=== PATIENT | female | born 1950 | race Caucasian/White ===

== ENCOUNTER → 2018-12-05 16:18 | Outpatient (CLI) | payer MEDICARE, SELFPAY ==
--- NOTE | 2018-12-05 16:30 | MRI_ITS ---
STUDY: MRI RIGHT HIP REASON FOR EXAM: Right hip pain since fallJuly 2017. TECHNIQUE: Standardized fat and water weighted pulse sequences were obtained in all 3 orthogonal planes. COMPARISON: None. FINDINGS: Although there is image degradation secondary to patient motion on the inversion recovery coronal sequence, there is still significant diagnostically useful information available from this examination. There is a small right hip joint effusion (proton-density sagittal images 13, 14). Normal acetabulum. Normal labrum. There is very mild bone edema in the anterior aspect of the right femoral head (T2 axial image 13). Normal femoral neck and intratrochanteric region. Normal gluteus minimus, medius and iliopsoas tendons and distal insertions. There is no trochanteric, iliopsoas or iliopectineal bursitis. Normal superior and inferior pubic rami. Normal pubic symphysis. Normal ischial tuberosity. Normal origin of the hamstring tendons. Normal visualized iliac wing, sacroiliac joint, and sacral ala. Normal visualized soft tissue structures of the pelvis. MRI/Lower Ext Joint Only (Routine) IMPRESSION: Very mild bone edema in the anterior aspect of the right femoral head. Small right hip joint effusion. Electronically Signed: Landon Carlos MD at 14:11 EST Tel , Service support ,
== END ==
PROVIDERS: Family Provider Internal Medicine Infectious Disease; PCP Internal Medicine Infectious Disease; Referring Provider Specialist; Visit Provider Specialist
DX: M25.551 Pain in right hip (principal)
CPT/HCPCS: 73721

== ENCOUNTER → 2018-12-14 10:50 | Outpatient (CLI) | payer MEDICARE, SELFPAY ==
[2018-12-14 12:50] LABS: Vitamin B12 444 pg/mL (211-911)
[2018-12-14 12:59] LABS: Thyroid Stim Hormone (TSH) 1.75 uIU/mL (0.358-3.74)
--- OUTSIDE RECORDS SUMMARY | 2019-02-18 01:37 | XMS RPT_ITS ---
:1950 Author Organization OHIP Support Name Relationship Address Phone R Unavailable Unavailable Unavailable TODD MARIE Unavailable [address] + [place] [address] R Unavailable Unavailable Unavailable TODD MARIE Unavailable [address] + [place] [address] R Unavailable Unavailable Unavailable TODD MARIE Unavailable [address] + [place] [address] NOT GIVEN Unavailable Unavailable Unavailable TODD MARIE Unavailable [address] + [place] [address] TODD MARIE Unavailable [address] [place] [address] NOT GIVEN Unavailable Unavailable Unavailable NOT GIVEN Unavailable Unavailable Unavailable NOT GIVEN Unavailable Unavailable Unavailable NOT GIVEN Unavailable Unavailable Unavailable TODD MARIE Unavailable [address] + [place] [address] TODD MARIE Unavailable [address] [place] [address] NOT GIVEN Unavailable Unavailable Unavailable TODD MARIE Unavailable [address] + [place] [address] TODD MARIE Unavailable [address] [place] [address] NOT GIVEN Unavailable Unavailable Unavailable TODD MARIE Unavailable [address] + [place] [address] TODD MARIE Unavailable [address] [place] [address] NOT GIVEN Unavailable Unavailable Unavailable TODD MARIE Unavailable [address] + [place] [address] TODD MARIE Unavailable [address] [place] [address] Care Team Providers Name Role Phone KAVITA IVEY MD Admitting Unavailable KAVITA IVEY MD Attending Unavailable KAVITA IVEY MD Primary Care Unavailable KAVITA IVEY MD Consulting Unavailable PROVIDER, UNKNOWN Consulting Unavailable PROVIDER, UNKNOWN Consulting Unavailable PROVIDER, UNKNOWN Consulting Unavailable ALEJANDRO SANDY T Primary Care Unavailable ALEJANDRO SANDY Attending Unavailable ALEJANDRO SANDY Admitting Unavailable KAVITA IVEY MD Consulting Unavailable THERON, ALEJANDRO Dickerson Primary Care Unavailable ALEJANDRO SANDY Attending Unavailable THERON, ALEJANDRO T Admitting Unavailable PROVIDER, UNKNOWN Consulting Unavailable PROVIDER, UNKNOWN Consulting Unavailable PROVIDER, UNKNOWN Consulting Unavailable THERON, ALEJANDRO T Admitting Unavailable ALEJANDRO SANDY T Attending Unavailable ALEJANDRO SANDY T Primary Care Unavailable KAVITA IVEY MD Consulting Unavailable KAVITA IVEY MD Referring Unavailable PROVIDER, UNKNOWN Consulting Unavailable PROVIDER, UNKNOWN Consulting Unavailable PROVIDER, UNKNOWN Consulting Unavailable KAVITA IVEY MD Referring Unavailable KAVITA IVEY MD Consulting Unavailable KAVITA IVEY MD Admitting Unavailable KAVITA IVEY MD Attending Unavailable KAVITA IVEY MD Primary Care Unavailable PROVIDER, UNKNOWN Consulting Unavailable PROVIDER, UNKNOWN Consulting Unavailable PROVIDER, UNKNOWN Consulting Unavailable KAVITA IVEY MD Referring Unavailable KAVITA IVEY MD Admitting Unavailable KAVITA IVEY MD Attending Unavailable KAVITA IVEY MD Primary Care Unavailable KAVITA IVEY MD Consulting Unavailable PROVIDER, UNKNOWN Consulting Unavailable PROVIDER, UNKNOWN Consulting Unavailable PROVIDER, UNKNOWN Consulting Unavailable FABIOLA, KANIKA PA-C Admitting Unavailable FABIOLA, KANIKA PA-C Attending Unavailable FABIOLA, KANIKA PA-C Primary Care Unavailable KAVITA IVEY MD Consulting Unavailable PROVIDER, UNKNOWN Consulting Unavailable PROVIDER, UNKNOWN Consulting Unavailable PROVIDER, UNKNOWN Consulting Unavailable FABIOLA, KANIKA PA-C Admitting Unavailable FABIOLA, KANIKA PA-C Attending Unavailable FABIOLA, KANIKA PA-C Primary Care Unavailable KAVITA IVEY MD Consulting Unavailable PROVIDER, UNKNOWN Consulting Unavailable PROVIDER, UNKNOWN Consulting Unavailable PROVIDER, UNKNOWN Consulting Unavailable Noah Kingsley Attending Unavailable Noah Kingsley Referring Unavailable OMRAN, YASSYAMILEX Primary Care Unavailable Felton, Kaleb S. Attending Unavailable Felton, Kaleb S. Referring Unavailable OMRAN, YASSER Primary Care Unavailable Felton, Kaleb S. Attending Unavailable Felton, Kaleb S. Referring Unavailable OMRAN, YASSER Primary Care Unavailable PROBLEMS PROBLEMS DATE TYPE CONDITION / CODE ATTENDING STATUS SOURCE 12/14/2018 Unknown R41.3 - Other Felton, Active [place] amnesia / Kaleb S. Community R41.3(ICD-10) Hospital Repository 09/12/2018 Principle Dysphasia / KANIKA STAPLETON Active [facility] Diagnosis R4702(ICD-10) PA-C [facility] Hospital Repository 09/12/2018 Principle Encounter for ALEJANDRO SANDY Active [facility] Diagnosis screening for T [facility] malignant neoplasm [facility] of colon / Repository Z1211(ICD-10) 08/16/2018 Principle Essential OMRAN, YASSER Active [facility] Diagnosis (primary) [facility] hypertension / Hospital I10(ICD-10) Repository 08/01/2018 Admitting Pneumonia, OMRAN, YASSER Active [facility] Diagnosis unspecified [facility] organism / Hospital J189(ICD-10) Repository 08/01/2018 Principle Pneumonia, OMRAN, YASSER Active [facility] Diagnosis unspecified [facility] organism / Hospital J189(ICD-10) Repository 08/01/2018 Secondary Chronic OMRAN, YASSER Active [facility] [facility] Diagnosis obstructive [facility] with (acute) Repository exacerbation / J441(ICD-10) 02/17/2018 Admitting Chronic OMRAN, YASSER Active [facility] [facility] Diagnosis obstructive [facility] unspecified / Repository J449(ICD-10) 02/17/2018 Principle Chronic OMRAN, YASSER Active [facility] [facility] Diagnosis obstructive [facility] with (acute) Repository exacerbation / J441(ICD-10) 02/17/2018 Secondary Pneumonia, OMRAN, YASSER Active [facility] Diagnosis unspecified [facility] organism / Hospital J189(ICD-10) Repository PROCEDURES PROCEDURES No Procedure Records FoundRESULTS RESULTS BRAIN WITHOUT Observed: 12/21/2018 Status: F Source: [place] CONTRAST 11:08 AM [facility] REPOSITORY [facility] Imaging Services [address] [place] [address] Brain without Contrast MR#: [id number] Acct: [id number] Name: ASHLEY MARIE Rep #: [id number] : 1950 F 68 From: Flynn Pham PCP: Kavita Ivey Status: REG CLI Study: Brain without Contrast Date of Exam: 12/21/18 Exam# [id number] Ordering Dr: Kaleb Ya MD STUDY: MRI BRAIN WITHOUT CONTRAST REASON FOR EXAM: Female, 68 years old. memory loss, RT SIDED WEAKNESS. TECHNIQUE: Standardized multiplanar fat and water weighted pulse sequences were obtained. COMPARISON: None. FINDINGS: There is mild cerebral atrophy with widening of the extra- axial spaces and ventricular dilatation. There are multiple white matter hyperintensities, distributed throughout the deep white matter tracts of the cerebral hemispheres, consistent with moderate chronic white matter ischemic changes. There are prominent perivascular spaces (PVS) involving the basal ganglia. Normal thalami. There is no extra-axial fluid accumulation. Normal flow voids within the major intracranial circulation suggesting patency by spin echo criteria. Normal sella turcica, pituitary gland, infundibular stalk, optic chiasm and hypothalamus. Normal tectal plate and pineal gland. Normal midbrain, steph and medulla. Normal cerebellum. Normal basal cisterns. Normal bilateral temporal bones. Normal bilateral internal auditory canals. MRI/Brain without Contrast IMPRESSION: No acute intracranial abnormality. 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 [place], [place], [address] THYROID STIM HORMONE Collected: 12/14/2018 Status: F Source: [place] (TSH) 10:57 AM [facility] REPOSITORY TYPE CODE TESTS RESULT OUT OF RANGE REFERENCE UNITS LAB L501.9520 0.358-3.74 uIU/mL Normal TSH 1.75 Performed By: #### L501.9520 #### [facility] [address] [place], [address] LOWER EXT JOINT ONLY Observed: 12/05/2018 Status: F Source: [place] (ROUTINE) 4:32 PM [facility] REPOSITORY [facility] Imaging Services [address] [place] [address] Lower Ext Joint Only (Routine) MR#: [id number] Acct: [id number] Name: ASHLEY MARIE Rep #: [id number] : 1950 F 68 From: Landon Carlos MD PCP: Kavita Ivey Status: REG CLI Study: Lower Ext Joint Only (Routine) Date of Exam: 12/05/18 Exam# [id number] Ordering Dr: Noah Kingsley MD STUDY: MRI RIGHT HIP REASON FOR EXAM: Right hip pain since May. FallJuly 2017. TECHNIQUE: Standardized fat and water weighted pulse sequences were obtained in all 3 orthogonal planes. COMPARISON: None. FINDINGS: Although there is image degradation secondary to patient motion on the inversion recovery coronal sequence, there is still significant diagnostically useful information available from this examination. There is a small right hip joint effusion (proton-density sagittal images 13, 14). Normal acetabulum. Normal labrum. There is very mild bone edema in the anterior aspect of the right femoral head (T2 axial image 13). Normal femoral neck and intratrochanteric region. Normal gluteus minimus, medius and iliopsoas tendons and distal insertions. There is no trochanteric, iliopsoas or iliopectineal bursitis. Normal superior and inferior pubic rami. Normal pubic symphysis. Normal ischial tuberosity. Normal origin of the hamstring tendons. Normal visualized iliac wing, sacroiliac joint, and sacral ala. Normal visualized soft tissue structures of the pelvis. MRI/Lower Ext Joint Only (Routine) IMPRESSION: Very mild bone edema in the anterior aspect of the right femoral head. Small right hip joint effusion. 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 Type: Out Account: [id number] Location: [facility] Ordering: [facility] Exam Date: 09/15/2018/14:02 Family Phys: KAVITA IVEY Charge Code: [id number] Physician: Curry Order #: [id number] DLP Dose#: PROCEDURE: CT BRAIN WITH AND WITHOUT COMPARISON: None. INDICATIONS: Headaches and dysphasia TECHNIQUE: After obtaining the patient's consent, CT images were obtained without and with non- ionic intravenous contrast material. All CT scans at this facility use dose modulation, iterative reconstruction, and/or weight based dosing when appropriate to reduce radiation dose to as low as reasonably achievable. IV CONTRAST: Omnipaque 350,50ml TOTAL DOSE: 115.00 CTDIvol(mGy) FINDINGS: CEREBRUM: No edema, hemorrhage, mass, acute infarction, or inappropriate atrophy. CEREBELLUM: No edema, hemorrhage, mass, acute infarction, or inappropriate atrophy. BRAINSTEM: No edema, hemorrhage, mass, acute infarction, or inappropriate atrophy. CSF SPACES: There is mild central atrophy. There is mild bilateral microangiopathic change. No abnormal foci of contrast enhancement. The dural venous sinuses are patent. SKULL: No mass or other significant visible lesion. SINUSES: Limited views demonstrate no significant mucosal thickening or fluid. ORBITS: Limited views are unremarkable. OTHER: No abnormal meningeal or parenchymal enhancement. CONCLUSION: 1. Atrophy and microangiopathic disease with no visible acute abnormality. Dictated by: Alejandro eMlendez MD on 09/15/2018 at 14:44 Continued Report - Page 2 of 2 Patient: ASHLEY MARIE Phone#: : 1950 Age: 67 Gender: F Pt. Type: Out Account: [id number] Location: 052 Ordering: [facility] Exam Date: 09/15/2018/14:02 Family Phys: KAVITA IVEY Charge Code: [id number] Physician: Curry Order #: [id number] DLP Dose#: Approved by: Alejandro Melendez MD on 09/15/2018 at 14:44 HIP COMPLETE RT MIN 2 Observed: 09/15/2018 Status: F Source: [place] VIEWS W/PELVIS 1:58 PM [facility] REPOSITORY [place] [address] Patient: ASHLEY MARIE Phone#: : 1950 Age: 67 Gender: F Pt. Type: Out Account: [id number] Location: 052 Ordering: [facility] Exam Date: 09/15/2018/13:24 Family Phys: KAVITA IVEY Charge Code: [id number] Physician: Curry Order #: [id number] DLP Dose#: PROCEDURE: X-RAY HIP RT COMPLETE MIN 2 VIEWS W/PELVIS COMPARISON: None. INDICATIONS: Right Hip Pain FINDINGS: BONES: There is mild degenerative change about both hips right greater than left. No visible fracture or suspicious bone lesion. There is degenerative change in the lower lumbar spine. SOFT TISSUES: Negative. No visible soft tissue swelling. EFFUSION: None visible. OTHER: Negative. CONCLUSION: 1. Mild bilateral hip joint degenerative change, otherwise unremarkable. Dictated by: Alejandro Melendez MD on 09/15/2018 at 15:06 Approved by: Alejandro Melendez MD on 09/15/2018 at 15:06 BUN Collected: 09/15/2018 Status: F Source: [place] 1:15 PM [facility] REPOSITORY TYPE CODE TESTS RESULT OUT OF RANGE REFERENCE UNITS LAB BUN(LOINC) 6 - 20 mg/dl BUN 15 Performed By: #### [id number] #### [facility],[address] [place] [address] CREATININE Collected: 09/15/2018 Status: F Source: [place] 1:15 PM [facility] REPOSITORY TYPE CODE TESTS RESULT OUT OF REFERENCE UNITS RANGE LAB CREATININE 0.6 - 1.2 mg/dl (LOINC) CREATININE 0.8 Performed By: #### [id number] #### [facility],[address] [place] [address] DISCHARGE SUMMARY Observed: 08/15/2018 Status: F Source: [place] 3:08 PM [facility] REPOSITORY [facility] DISCHARGE SUMMARY NAME ACCOUNT SEX AGE ADMIT DISCHARGE PT MED. RECORD# NUMBER DATE DATE TYPE ASHLEY MARIE [id number] F 67 08/01/18 08/07/18 1 [id number] ROOM: [facility] DATE OF : 1950 DICTATING PHYSICIAN: Kavita Ivey FINAL DIAGNOSES: 1. Chronic obstructive pulmonary disease exacerbation. 2. Acute community acquired pneumonia. 3. Yeast in sputum. 4. Hyperglycemia secondary to steroids. 5. Hypokalemia. DIAGNOSTIC DATA: WBC 12.3 on discharge, hemoglobin 12.9, hematocrit 38.6, hemoglobin A1c 6%, sodium 139, potassium 3.4, BUN 11, creatinine 0.7. HOSPITAL COURSE: For full history and physical, please see chart. For brief summary, see below. This is a 67-year-old female with known history of stage III severe COPD. She has oxygen at home. She has not been wearing it. She also has DuoNeb treatments at home. She has a history of hypercholesterolemia, hypertension and depression with anxiety. She had increasing shortness of breath. She does not leave the house much. She had a to go to. She was around a lot of people. She went on prednisone at home for 4 days as she started to have shortness of breath and cough. She then awoke with pain on the right side that was worse with cough. She felt like she could not catch her breath. She came to the emergency room. She had mild hypokalemia, leukocytosis. She was tachycardic. Oxygen saturation was 83% on room air. CT of the chest ruled out pulmonary embolism with right middle and upper lobe infiltrate. She was admitted for further management. She was placed on broad spectrum IV antibiotics with Rocephin and Zithromax, oxygen support, DuoNeb treatment and prednisone daily. She had hyperglycemia secondary to steroids. Glucoscans were checked with sliding insulin scale. She slowly improved. Sputum did come back with yeast. She was placed on Diflucan. Today, on the date of discharge she is feeling much better. Blood pressure 157/95, heart rate 82, respirations 16, temperature 97.5, oxygen saturation 92% on 2 liters. Lungs have normal respiratory effort. Equal lung expansion. Diminished breath sounds but clear. Heart has regular rate and rhythm. DISPOSITION: She was discharged home in stable condition. MEDICATIONS ON DISCHARGE: (1) Diflucan 100 mg daily for 7 days. (2) Ceftin 250 Page 1 of 2 ASHLEY MARIE D Discharge Summary mg b.i.d. x5 days. (3) Prednisone 20 mg daily for 5 days. (4) Probiotic 1 capsule daily. She was told to stay on this. (5) Hold Lovastatin 20 mg and restart in 2 weeks. (6) Saline nasal spray 2 sprays each nostril 4 times day. (7) Delsym 10 mL q12h cough. (8) Ibuprofen 200 mg daily as at home. (9) Alprazolam 0.5 mg b.i.d. p.r.n. (10) Senokot S 1 tablet daily. (11) Omeprazole 40 mg daily. (12) Vitamin B complex one tablet daily. (13) Amlodipine 5 mg daily. (14) Citalopram 20 mg daily. DISCHARGE INSTRUCTIONS/PLAN: Increase activity as tolerated. Continue Acapella and incentive spirometry. No added sugar diet. Follow up with Kanika Stapleton in the office on August 08 at 1 p.m. Discharge instructions were discussed with her including wearing her oxygen at home. New medications included antibiotics, Diflucan, prednisone, and probiotics. Statin was held for 2 weeks. All questions were answered. She verbalized understanding of the plan. I examined the patient myself, the above E&M is accurate reflection of work done by me Niharika Ivey M.D. Dictated by eduarda Alcazar for Kavita Ivey M.D. 08/07/18 10:21 JOB #: [id number] Transcribed By: yue 08/08/18 10:19 Electronically signed by: GIOVANNI IVEY MD 08/15/18 15:08 Page 2 of 2 ASHLEY MARIE Discharge Summary PROGRESS NOTE Observed: 08/15/2018 Status: F Source: [place] 3:04 PM [facility] PROGRESS NOTE NAME ACCOUNT SEX AGE ADMIT DISCHARGE PT MED. RECORD# NUMBER DATE DATE TYPE ASHLEY MARIE [id number] F 67 08/01/18 1 [id number] ROOM: [facility] DATE OF : 1950 DICTATING PHYSICIAN: Kavita Ivey DATE OF SERVICE: August 06, 2018 SUBJECTIVE: Mrs. Marie has been doing fairly well today, better than previous. The cough did improve some. She did have a little bit of funny sensation on the mouth, and on examination there is a small area of whitish on the tip of the tongue and inside the lip. OBJECTIVE: Vital signs otherwise revealed the patient to be afebrile. She is on 2 liters of oxygen, saturation is 92 to 94%, blood pressure 160/97. HEENT: Pupils are round, equal, and reactive. Tongue is midline. As I mentioned, small whitish spot very tiny on the tip of the tongue and one inside the lip to the left. Neck is supple. Lungs are improving at this point with minimal wheezes. The heart was regular. Abdomen is soft. Extremities revealed no edema. DIAGNOSTIC DATA: White count is 11.8 today, hemoglobin 12.7. Chemistries revealed a sodium of 140, potassium 3.7, bicarbonate 31.8, BUN 10, creatinine 0.7. ASSESSMENT: 1. Acute chronic obstructive pulmonary disease exacerbation improving. 2. Right lower lobe pneumonitis - improving. 3. Possible yeast bronchitis and even thrush - currently on treatment. We will continue Diflucan. 4. Back pain - has been controlled now with current regimen. PLAN: Continue current treatment. Encouraged the patient mobility. Reassess the situation in the morning. The patient's blood pressure has went up slightly and the IV fluid has been stopped at this point. Dictated By: Kavita Ivey MD 08/06/18 17:36 JOB #: [id number] Transcribed By: neville 08/06/18 17:50 Electronically signed by: GIOVANNI IVEY MD 08/15/18 15:04 Page 1 of 2 ASHLEY MARIE Progress Note Page 2 of 2 ASHLEY Progress Note PROGRESS NOTE Observed: 08/15/2018 Status: F Source: [place] 3:04 PM [facility] PROGRESS NOTE NAME ACCOUNT SEX AGE ADMIT DISCHARGE PT MED. RECORD# NUMBER DATE DATE TYPE ASHLEY MARIE [id number] F 67 08/01/18 1 [id number] ROOM: 301 DATE OF : 1950 DICTATING PHYSICIAN: Kavita Ivey DATE OF SERVICE: August 05, 2018 SUBJECTIVE: Ms. Marie still does not exhibit significant improvement so far. She continued to have shortness of breath and wheezing and cough. OBJECTIVE: Highest temperature is 98.8. Blood pressure is 165/70. She is on oxygenation, saturation 90 to 93%. HEENT: Pupils round, equal, reactive. Tongue to midline. Neck was supple. Lungs still reveal bilateral wheezes with some rhonchi. The heart was regular. Abdomen: Soft. Extremities: Reveal no edema. DIAGNOSTIC DATA: Sputum culture is growing out yeast. The rest of her labs reveal a white count is 9.9 today. Hemoglobin 11.9. Sodium is 140, potassium is 3. ASSESSMENT AND PLAN: 1. Acute chronic obstructive pulmonary disease exacerbation with slow improvement. 2. Pneumonia, currently on treatment. 3. Yeast growing from sputum, could be yeast colonization versus bronchitis. Will go ahead and initiate Diflucan therapy due to the failure of other therapies. Will go ahead and stop the lovastatin for now for potential drug interaction. 4. Hypokalemia. Will replace orally. Dictated By: Kavita Ivey MD 08/05/18 14:09 JOB #: [id number] Transcribed By: sherri 08/06/18 07:15 Electronically signed by: GIOVANNI IVEY MD 08/15/18 15:03 Page 1 of 1 ASHLEY Mikey Progress Note PROGRESS NOTE Observed: 08/15/2018 Status: F Source: [place] MC[place] 2:40 PM [facility] PROGRESS NOTE NAME NUMBER SEX AGE ADMIT DISC TYPE MED.RECORD# ROCK RAMIREZ [id number] F 67 08/01/18 I/P [id number] ROOM:301 DATE OF :1950 PHYSICIAN NO.:[id number] PHYSICIAN NAME:GIOVANNI IVEY MD PHYSICIAN:GIOVANNI IVEY MD DATE OF SERVICE: August 04, 2018 SUBJECTIVE: She continues with a moist cough and shortness of breath. She is on oxygen support. Update from nursing staff. OBJECTIVE: Blood pressure is 149/83, heart rate 74, respirations 16, temperature 97.2, and oxygen saturation 94% on 1 liter. This is a well-nourished, well-developed, 67-year-old female who is alert and cooperative. Neck is supple. No JVD. Lungs with normal respiratory effort on oxygen support and equal lung expansion. Inspiratory and expiratory wheezes throughout. Heart with distant heart sounds. Regular rate and rhythm. DIAGNOSTIC DATA: White count is 13.7, hemoglobin 11.7, and hematocrit 35.7. Hemoglobin A1c is 6%. Sodium is 139, potassium 3.2, BUN 8, creatinine 0.7, and glucose 107. ASSESSMENT/PLAN: 1. Llydu-dh-hvwmwpn chronic obstructive pulmonary disease exacerbation with minimal improvement. We will continue oxygen support, DuoNeb treatments, incentive spirometry with Acapella and prednisone. 2. Acute community-acquired pneumonia, on broad-spectrum IV antibiotics, still with leukocytosis. It may also be demargination from steroids. 3. Mild hypokalemia. We will replace potassium and monitor. The above was discussed with the patient. All of her questions were answered, and she verbalized understanding of the plan. Dictated by eduarda Alcazar for Dr. Ivey. I examined the patient myself, the above E&M is accurate reflection of work done by me Niharika Ivey M.D. Dictated By: Kavita Ivey MD 08/04/18 10:52 JOB #: [id number] Transcribed By: wilberto 08/04/18 13:32 Electronically signed by: GIOVANNI IVEY MD 08/15/18 14:39 PROGRESS NOTE Observed: 08/15/2018 Status: F Source: [place] 2:39 PM [facility] PROGRESS NOTE NAME ACCOUNT SEX AGE ADMIT DISCHARGE PT MED. RECORD# NUMBER DATE DATE TYPE ASHLEY MARIE [id number] F 67 08/01/18 1 [id number] ROOM: 301 DATE OF : 1950 DICTATING PHYSICIAN: Kavita Ivey DATE OF SERVICE: August 04, 2018 SUBJECTIVE: She continues with a moist cough and shortness of breath. She is on oxygen support. Update from nursing staff. OBJECTIVE: Blood pressure is 149/83, heart rate 74, respirations 16, temperature 97.2, and oxygen saturation 94% on 1 liter. This is a well-nourished, well-developed, 67-year-old female who is alert and cooperative. Neck is supple. No JVD. Lungs with normal respiratory effort on oxygen support and equal lung expansion. Inspiratory and expiratory wheezes throughout. Heart with distant heart sounds. Regular rate and rhythm. DIAGNOSTIC DATA: White count is 13.7, hemoglobin 11.7, and hematocrit 35.7. Hemoglobin A1c is 6%. Sodium is 139, potassium 3.2, BUN 8, creatinine 0.7, and glucose 107. ASSESSMENT/PLAN: 1. Frunu-ep-tryayzb chronic obstructive pulmonary disease exacerbation with minimal improvement. We will continue oxygen support, DuoNeb treatments, incentive spirometry with Acapella and prednisone. 2. Acute community-acquired pneumonia, on broad-spectrum IV antibiotics, still with leukocytosis. It may also be demargination from steroids. 3. Mild hypokalemia. We will replace potassium and monitor. The above was discussed with the patient. All of her questions were answered, and she verbalized understanding of the plan. Dictated by eduarda Alcazar for Dr. Ivey. I examined the patient myself, the above E&M is accurate reflection of work done by me Niharika Ivey M.D. Dictated By: Kavita Ivey MD 08/04/18 10:52 JOB #: [id number] Transcribed By: wilberto 08/04/18 13:32 Electronically signed by: GIOVANNI IVEY MD 08/15/18 14:39 Page 1 of 1 ASHLEY MARIE Progress Note EMERGENCY REPORT Observed: 08/07/2018 Status: F Source: [facility] 7:31 PM [facility] EMERGENCY ROOM REPORT NAME ACCOUNT SEX AGE ADMIT DISCHARGE PT MED. RECORD# NUMBER DATE DATE TYPE ASHLEY MARIE [id number] F 67 08/01/18 1 [id number] ROOM: 301 DATE OF : 1950 DICTATING PHYSICIAN: Peterson Keita CHIEF COMPLAINT/HISTORY OF PRESENT ILLNESS: This is a 67-year-old woman with a past medical history significant for hypertension, COPD, asthma, lung cancer, GERD, presents with shortness of breath and right sided rib pain over the last few days. Patient has also noted a cough productive of yellow sputum. Patient denies chest pain. Patient had prednisone at home and took prednisone for the last 4 days, as well as using albuterol inhaler. Patient with oxygen at home, however, does not use it, as she does not want to become dependent on this. Patient with no other significant symptoms. No fevers nor chills. PAST MEDICAL HISTORY: Hypertension, COPD, asthma, lung cancer, GERD. PAST SURGICAL HISTORY: Right lower lobe lobectomy. ALLERGIES: Codeine. SOCIAL HISTORY: Denies x3. REVIEW OF SYSTEMS: Ten systems reviewed and negative with the exception of right-sided sharp chest pain, shortness of breath, cough productive of yellow sputum. PHYSICAL EXAMINATION: Vitals: Blood pressure 118/79, pulse 103, respiratory rate of 30, temperature 98.6, O2 saturation 83% on room air. Patient placed on 2 L nasal cannula with oxygen saturations 94%. Patient appears in no apparent distress, resting comfortably on cart. Patient's heart with a regular rate and rhythm. No murmurs, rubs or gallops. Patient's lungs clear to auscultation bilaterally. Patient's abdomen soft, nontender, nondistended. Patient with mild end expiratory wheezing on lung auscultation. Patient's oropharynx clear with no erythema nor edema. Patient's tympanic membranes clear. Patient is without no cervical lymphadenopathy. Patient's pupils equal, round and reactive to light and accommodation. Patient's skin is warm, dry and intact with no rashes noted. Patient moving all extremities without lower extremity edema. Patient alert and oriented x3. Patient with no SI or HI. DIAGNOSTIC DATA: Patient's CMP significant for mild hypokalemia to 3.6. Normal renal function with BUN of 10, creatinine of 0.8. Remainder of electrolytes and CMP within normal limits. Patient's CBC with white blood cell count of 19,000. Remainder of CBC unremarkable. Chest x-ray showed bilateral perihilar developing pneumonia, worsened right middle lobe, given hypoxia with initial vital signs and tachycardia. Page 1 of 2 ASHLEY MARIE Emergency Room Report Pulmonary embolism with moderate suspicion. PERC rule cannot be applied to patient, however, the Well's score 1.54, tachycardia. D-dimer obtained and elevated at 273. BNP within normal limits. EKG with left bundle branch block with old previous EKG showing normal sinus rhythm. Given elevated D-dimer, CT chest obtained to rule out pulmonary embolism. CT chest revealed a right middle lobe pneumonia, however, no evidence of pulmonary embolism. MEDICAL DECISION MAKING: This is a 67-year-old woman who presents with a 2 to 3 day history of shortness of breath with cough. Patient's findings concerning for COPD exacerbation versus asthma exacerbation versus pneumonia. EMERGENCY DEPARTMENT COURSE AND TREATMENT: Given oxygen requirement, pneumonia with elevated white count, essentially due to prednisone use over the past 4 days, the patient was admitted for observation. Patient given ceftriaxone for pneumonia. Patient in stable condition at the time of admission. Dictated By: Peterson Keita MD 08/02/18 01:20 JOB #: [id number] Transcribed By: sherri 08/02/18 07:59 Electronically signed by: E-SIGN: Peterson Keita M.D. 08/07/18 19:30 Page 2 of 2 ASHLEY MARIE Emergency Room Report CBC Collected: 08/07/2018 Status: F Source: [facility] 5:10 AM [facility] REPOSITORY TYPE CODE TESTS RESULT OUT OF RANGE REFERENCE UNITS LAB CBC(LOINC) CBC Result Comment: CBC-COMPLETE BLOOD COUNT LAB WBC(LOINC) 4.5 - 10.8 x 10EE3/UL WBC High 12.3 LAB RBC(LOINC) 4.10 - x 10EE6/UL 5.30 RBC 4.35 LAB HEMOGLOBIN(LOINC 12.0 - g/dl ) 16.0 HEMOGLOBIN 12.9 LAB HEMATOCRIT(LOINC 34.0 - % ) 46.0 HEMATOCRIT 38.6 LAB MCV(LOINC) 80 - 99 fl MCV 89 LAB MCH(LOINC) 27 - 33 pg MCH 30 LAB MCHC(LOINC) 32 - 36 X10 3 MCHC 33 LAB RDW/CV(LOINC) 12.0 - % 15.6 RDW/CV 14.5 LAB PLATELET(LOINC) 150 - 450 x10EE3/UL PLATELET 348 LAB MPV(LOINC) 6.6 - 10.5 fl MPV 7.5 Result Comment: AUTOMATED DIFFERENTIAL LAB NEUT %(LOINC) 46.0 - 76.0 % NEUT % 67.8 LAB LYMPH %(LOINC) 20.0 - 45.0 % LYMPH % 22.8 LAB MONOS %(LOINC) 0.0 - 10.0 % MONOS % 8.0 LAB EO %(LOINC) 0.0 - 7.0 % EO % 0.6 LAB BASO %(LOINC) 0.0 - 2.0 % BASO % 0.8 LAB Lymph #(LOINC) 0.80 - 2.80 x10EE3/U L Lymph # 2.80 LAB Neut #(LOINC) 1.50 - 7.10 x10EE3/U L Neut # High 8.30 LAB [place] #(LOINC) 0.20 - 1.00 x10EE3/U L [place] # 1.00 LAB EO #(LOINC) 0.00 - 0.50 x10EE3/U L EO # 0.10 LAB Baso #(LOINC) 0.00 - 0.10 x10EE3/U L Baso # 0.10 LAB MANUAL DIFF(LOINC) MANUAL DIFF N/A LAB MORPHOLOGY(INC ) MORPHOLOGY N/A Result Comment: {CD] Performed By: #### [id number] #### [facility],[address] [place] [address] BMP WITH EGFR Collected: 08/07/2018 Status: F Source: [facility] 5:10 AM [facility] REPOSITORY TYPE CODE TESTS RESULT OUT OF RANGE REFERENCE UNITS LAB BMP with eGFR(INC) BMP with eGFR Result Comment: BASIC METABOLIC PANEL LAB SODIUM(LOINC) 136 - 145 mmol/l SODIUM 139 LAB POTASSIUM(LOINC) 3.5 - 5.1 mmol/L Low POTASSIUM 3.4 LAB CHLORIDE(LOINC) 98 - 107 mmol/L CHLORIDE 102 LAB CO2(LOINC) 21.0 - mmol/L 31.0 CO2 29.8 LAB GLUCOSE(LOINC) 74 - 106 mg/dl GLUCOSE 89 LAB BUN(LOINC) 6 - 20 mg/dl BUN 11 LAB CREATININE(LOINC) 0.6 - 1.2 mg/dl CREATININE 0.7 LAB CALCIUM(LOINC) 8.6 - mg/dl 10.2 CALCIUM 9.2 LAB ANION GAP(LOINC) 10 - 20 mmol/L ANION GAP 11 LAB AGE(LOINC) years AGE 67 LAB eGFR(LOINC) 60 - 999 ML/MINUTE eGFR >60 LAB eGFR(AA)(LOINC) 60 - 999 ML/MINUTE eGFR(AA) >60 Result Comment: ACCORDING TO THE NATIONAL KIDNEY DISEASE EDUCATION PROGRAM(NKDE), A NORMAL eGFR IS A VALUE GREATER THAN OR EQUAL TO 60 ML/MIN/1.73 SQ METERS. CHRONIC KIDNEY DISEASE: <60mL/MIN/1.73 SQ METERS KIDNEY FAILURE: <15mL/MIN/1.73 SQ METERS THIS TEST SHOULD ONLY BE USED FOR PATIENTS 18 YEARS OF AGE AND OLDER. Performed By: #### [id number] #### [facility],[address] [place] [address] CBC Collected: 08/06/2018 Status: F Source: [facility] 5:08 AM [facility] REPOSITORY TYPE CODE TESTS RESULT OUT OF RANGE REFERENCE UNITS LAB CBC(LOINC) CBC Result Comment: CBC-COMPLETE BLOOD COUNT LAB WBC(LOINC) 4.5 - 10.8 x 10EE3/UL WBC High 11.8 LAB RBC(LOINC) 4.10 - x 10EE6/UL 5.30 RBC 4.25 LAB HEMOGLOBIN(LOINC 12.0 - g/dl ) 16.0 HEMOGLOBIN 12.7 LAB HEMATOCRIT(LOINC 34.0 - % ) 46.0 HEMATOCRIT 38.2 LAB MCV(LOINC) 80 - 99 fl MCV 90 LAB MCH(LOINC) 27 - 33 pg MCH 30 LAB MCHC(LOINC) 32 - 36 X10 3 MCHC 33 LAB RDW/CV(LOINC) 12.0 - % 15.6 RDW/CV 14.6 LAB PLATELET(LOINC) 150 - 450 x10EE3/UL PLATELET 354 LAB MPV(LOINC) 6.6 - 10.5 fl MPV 7.4 Result Comment: AUTOMATED DIFFERENTIAL LAB NEUT %(LOINC) 46.0 - 76.0 % NEUT % 68.4 LAB LYMPH %(LOINC) 20.0 - 45.0 % LYMPH % 21.5 LAB MONOS %(LOINC) 0.0 - 10.0 % MONOS % 9.1 LAB EO %(LOINC) 0.0 - 7.0 % EO % 0.5 LAB BASO %(LOINC) 0.0 - 2.0 % BASO % 0.5 LAB Lymph #(LOINC) 0.80 - 2.80 x10EE3/U L Lymph # 2.50 LAB Neut #(LOINC) 1.50 - 7.10 x10EE3/U L Neut # High 8.10 LAB [place] #(LOINC) 0.20 - 1.00 x10EE3/U L [place] # High 1.10 LAB EO #(LOINC) 0.00 - 0.50 x10EE3/U L EO # 0.10 LAB Baso #(LOINC) 0.00 - 0.10 x10EE3/U L Baso # 0.10 LAB MANUAL DIFF(LOINC) MANUAL DIFF N/A LAB MORPHOLOGY(LOINC ) MORPHOLOGY N/A Result Comment: {CD] Performed By: #### [id number] #### [facility],[address] [place] [address] BMP WITH EGFR Collected: 08/06/2018 Status: F Source: [facility] 5:08 AM [facility] REPOSITORY TYPE CODE TESTS RESULT OUT OF RANGE REFERENCE UNITS LAB BMP with eGFR(LOINC) BMP with eGFR Result Comment: BASIC METABOLIC PANEL LAB SODIUM(LOINC) 136 - 145 mmol/l SODIUM 140 LAB POTASSIUM(LOINC) 3.5 - 5.1 mmol/L POTASSIUM 3.7 LAB CHLORIDE(LOINC) 98 - 107 mmol/L CHLORIDE 102 LAB CO2(LOINC) 21.0 - mmol/L 31.0 CO2 High 31.8 LAB GLUCOSE(LOINC) 74 - 106 mg/dl GLUCOSE 106 LAB BUN(LOINC) 6 - 20 mg/dl BUN 10 LAB CREATININE(LOINC) 0.6 - 1.2 mg/dl CREATININE 0.7 LAB CALCIUM(LOINC) 8.6 - mg/dl 10.2 CALCIUM 9.2 LAB ANION GAP(LOINC) 10 - 20 mmol/L ANION GAP 10 LAB AGE(LOINC) years AGE 67 LAB eGFR(LOINC) 60 - 999 ML/MINUTE eGFR >60 LAB eGFR(AA)(LOINC) 60 - 999 ML/MINUTE eGFR(AA) >60 Result Comment: ACCORDING TO THE NATIONAL KIDNEY DISEASE EDUCATION PROGRAM(NKDE), A NORMAL eGFR IS A VALUE GREATER THAN OR EQUAL TO 60 ML/MIN/1.73 SQ METERS. CHRONIC KIDNEY DISEASE: <60mL/MIN/1.73 SQ METERS KIDNEY FAILURE: <15mL/MIN/1.73 SQ METERS THIS TEST SHOULD ONLY BE USED FOR PATIENTS 18 YEARS OF AGE AND OLDER. Performed By: #### [id number] #### [facility],[address] [place], [place] [id number] CBC Collected: 08/05/2018 Status: F Source: [facility] 5:00 AM [facility] REPOSITORY TYPE CODE TESTS RESULT OUT OF RANGE REFERENCE UNITS LAB CBC(LOINC) CBC Result Comment: CBC-COMPLETE BLOOD COUNT LAB WBC(LOINC) 4.5 - 10.8 x 10EE3/UL WBC 9.9 LAB RBC(LOINC) 4.10 - x 10EE6/UL 5.30 RBC Low 3.96 LAB HEMOGLOBIN(LOINC) 12.0 - g/dl 16.0 Low HEMOGLOBIN 11.9 LAB HEMATOCRIT(LOINC) 34.0 - % 46.0 HEMATOCRIT 35.2 LAB MCV(LOINC) 80 - 99 fl MCV 89 LAB MCH(LOINC) 27 - 33 pg MCH 30 LAB MCHC(LOINC) 32 - 36 X10 3 MCHC 34 LAB RDW/CV(LOINC) 12.0 - % 15.6 RDW/CV 14.6 LAB PLATELET(LOINC) 150 - 450 x10EE3/UL PLATELET 314 LAB MPV(LOINC) 6.6 - 10.5 fl MPV 7.6 Result Comment: AUTOMATED DIFFERENTIAL LAB NEUT %(LOINC) 46.0 - 76.0 % NEUT % 68.7 LAB LYMPH %(LOINC) 20.0 - 45.0 % LYMPH % 21.9 LAB MONOS %(LOINC) 0.0 - 10.0 % MONOS % 8.3 LAB EO %(LOINC) 0.0 - 7.0 % EO % 0.3 LAB BASO %(LOINC) 0.0 - 2.0 % BASO % 0.8 LAB Lymph #(LOINC) 0.80 - 2.80 x10EE3/U L Lymph # 2.20 LAB Neut #(LOINC) 1.50 - 7.10 x10EE3/U L Neut # 6.80 LAB [place] #(LOINC) 0.20 - 1.00 x10EE3/U L [place] # 0.80 LAB EO #(LOINC) 0.00 - 0.50 x10EE3/U L EO # 0.00 LAB Baso #(LOINC) 0.00 - 0.10 x10EE3/U L Baso # 0.10 LAB MANUAL DIFF(LOINC) MANUAL DIFF N/A LAB MORPHOLOGY(LOINC ) MORPHOLOGY N/A Result Comment: {CD] Performed By: #### [id number] #### [facility],[address] [place] [address] BMP WITH EGFR Collected: 08/05/2018 Status: F Source: [facility] 5:00 AM [facility] TYPE CODE TESTS RESULT OUT OF RANGE REFERENCE UNITS LAB BMP with eGFR(LOINC) BMP with eGFR Result Comment: BASIC METABOLIC PANEL LAB SODIUM(LOINC) 136 - 145 mmol/l SODIUM 140 LAB POTASSIUM(LOINC) 3.5 - 5.1 mmol/L Low POTASSIUM 3.0 LAB CHLORIDE(LOINC) 98 - 107 mmol/L CHLORIDE 106 LAB CO2(LOINC) 21.0 - mmol/L 31.0 CO2 25.0 LAB GLUCOSE(LOINC) 74 - 106 mg/dl GLUCOSE High 122 LAB BUN(LOINC) 6 - 20 mg/dl BUN 7 LAB CREATININE(LOINC) 0.6 - 1.2 mg/dl CREATININE 0.6 LAB CALCIUM(LOINC) 8.6 - mg/dl 10.2 CALCIUM Low 8.4 LAB ANION GAP(LOINC) 10 - 20 mmol/L ANION GAP 12 LAB AGE(LOINC) years AGE 67 LAB eGFR(LOINC) 60 - 999 ML/MINUTE eGFR >60 LAB eGFR(AA)(LOINC) 60 - 999 ML/MINUTE eGFR(AA) >60 Result Comment: ACCORDING TO THE NATIONAL KIDNEY DISEASE EDUCATION PROGRAM(NKDE), A NORMAL eGFR IS A VALUE GREATER THAN OR EQUAL TO 60 ML/MIN/1.73 SQ METERS. CHRONIC KIDNEY DISEASE: <60mL/MIN/1.73 SQ METERS KIDNEY FAILURE: <15mL/MIN/1.73 SQ METERS THIS TEST SHOULD ONLY BE USED FOR PATIENTS 18 YEARS OF AGE AND OLDER. Performed By: #### [id number] #### [facility],[address] [place] [address] PROGRESS NOTE Observed: 08/04/2018 Status: F Source: [facility] 6:20 AM [facility] PROGRESS NOTE NAME ACCOUNT SEX AGE ADMIT DISCHARGE PT MED. RECORD# NUMBER DATE DATE TYPE ASHLEY MARIE [id number] F 67 08/01/18 1 [id number] ROOM: 301 DATE OF : 1950 DICTATING PHYSICIAN: Kavita Ivey DATE OF SERVICE: August 03, 2018 SUBJECTIVE: Ms. Marie is lying in bed. She still has audible wheezing. She denied any chest pain. She has improvement in the phlegm production. OBJECTIVE: Highest temperature was 98.9, blood pressure 147/81, respirations 18. HEENT: Pupils are round, equal, and reactive. Tongue is midline. Neck is supple. Lungs revealed bilateral expiratory wheezes with decreased air exchange bilaterally. The heart was regular. Extremities revealed no edema. DIAGNOSTIC DATA: White count is 18.5, hemoglobin 11.7. She had sodium of 138, potassium 3.5, chloride 109, BUN 10, creatinine 0.6. ASSESSMENT/PLAN: 1. Acute chronic obstructive pulmonary disease exacerbation, minimal improvement so far. Continue current treatment. 2. Pneumonia right lower lung, currently on treatment. We will continue current measures. Reassess the situation in the morning. Dictated By: Kavita Ivey MD 08/03/18 13:02 JOB #: [id number] Transcribed By: am 08/03/18 13:19 Electronically signed by: GIOVANNI IVEY MD 08/04/18 06:20 Page 1 of 1 ASHLEY MARIE Progress Note HISTORY AND PHYSICAL Observed: 08/04/2018 Status: F Source: [facility] EXAM 6:18 AM [facility] HISTORY & PHYSICAL NAME ACCOUNT SEX AGE ADMIT DISCHARGE PT MED. RECORD# NUMBER DATE DATE TYPE ASHLEY MARIE [id number] F 67 08/01/18 1 [id number] ROOM: [facility] DATE OF : [birth year] DICTATING PHYSICIAN: Kavita Ivey CHIEF COMPLAINT: Shortness of breath. HISTORY OF PRESENT ILLNESS: A 67-year-old female with a past medical history significant for severe COPD with multiple exacerbations in the past. History of respiratory failure and recurrent pneumonias. She stated that about 1 week ago, she had a for her onzauo-no-dza. She does not usually leave the house much or around crowds or parties. She was around a lot of people. She then started with shortness of breath and cough. She went on prednisone at home for the past 4 days and yesterday when she awoke she had sharp pain on her right side. She felt like she could not catch her breath. She has been having cough, sometimes productive of yellow sputum. She has not been using her oxygen at home. In the emergency room, she had mild hypokalemia, leukocytosis, tachycardia. Oxygen saturation was 83% on room air and chest x-ray and CT of the chest were completed ruling out pulmonary embolism with right middle and upper lobe pneumonias and she was admitted for further management. Upon evaluation this morning, she has been short of breath, coughing. That pain on the right side has somewhat improved this morning. PAST MEDICAL HISTORY: (1) Osteoporosis. (2) History of colonic polyps. (3) Depression. (4) Hypercholesterolemia. (5) History of lung cancer. (6) Osteoarthritis. (7) Anxiety. (8) Hypertension. (9) GERD. (10) Stage III severe COPD by GOLD classification with multiple exacerbations. (11) Chronic constipation. (12) Chronic respiratory failure requiring home oxygen. (13) History of blood transfusion after delivery in 1971. (14) Depression and anxiety. PAST SURGICAL HISTORY: Lobectomy, x3, status post appendectomy, tonsillectomy and adenoidectomy, cataract surgery, fibroid tumor removed from the uterus, ankle surgery after trauma, knee surgery after trauma, maxillary reconstruction, oral surgery with multiple fractures in the past. MEDICATIONS: At home; (1) Alprazolam 0.5 mg b.i.d. p.r.n. (2) Citalopram 20 mg daily. (3) Ibuprofen 200 mg daily p.r.n. (4) Losartan 50 mg daily, (5) Lovastatin 20 mg daily. (6) Omeprazole 40 mg daily. (7) vitamin 1 tablet daily. (8) ProAir inhaler 1 puff every 4 hours p.r.n. (9) Saline nasal spray 2 sprays each nostril p.r.n. She states she has been using this routinely. (10) Senokot S 1 tablet b.i.d. (11) Vitamin B Complex 1 tablet daily. (12) Amlodipine 5 mg daily. (13) Tramadol 50 mg 4 times daily p.r.n. ALLERGIES: Codeine and latex. Page 1 of 4 ASHLEY MARIE History & Physical FAMILY HISTORY: Both parents have . Mother of liver cancer and had breast cancer. She also had Alzheimer's dementia. Father had emphysema. She has a half brother with valvular heart disease and prostate cancer and also cancer of the tongue, throat and ear. She has a half sister with stomach cancer diagnosed in her 30s. SOCIAL HISTORY: The patient is . She lives at home with her spouse. She quit smoking in 2002. She has 4 children. 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 REVIEW OF SYSTEMS: She does not recall fever or chills. She has had generalized weakness and fatigue, increasing shortness of breath, cough productive with thick yellow sputum at times, increased wheezing, difficulty catching her breath, pain on the right side with a deep breath. No pain in the chest. No abdominal pain, bowel or bladder changes. PHYSICAL EXAMINATION GENERAL APPEARANCE: The patient was lying in bed, no acute distress. She is alert, pleasant and cooperative. Well-nourished, well-developed female. VITAL SIGNS: Blood pressure 107/52, heart rate 90, respirations 16, temperature 98.1, oxygen saturation 96% on 2 L. Weight 161 pounds. BMI 25.36. Oxygen on admission 83% with heart rate of 103. HEENT: Revealed oxygen per nasal cannula. Dentures, otherwise unremarkable. NECK: Supple. No nodes or masses. No JVD. No bruit. LUNGS: Mild increased respiratory effort on oxygen support with diminished breath sounds, wheezes on the left side as well as crackles in the right lower lobe and prolonged expiration. HEART: Tachycardic with regular rhythm. ABDOMEN: Positive bowel sounds, soft and nontender with no hepatosplenomegaly appreciated. EXTREMITIES: Free of edema or cyanosis. Pulses are palpable in the dorsalis pedis bilaterally. NEUROLOGIC: She is alert and oriented. Mood, affect and memory within normal limits. Speech is clear. She answers questions appropriately. DIAGNOSTIC DATA: Laboratory data; white count on admission 19.8 with a left shift. This morning white count 15.9. Hemoglobin 13.1, hematocrit 39.1, D-dimer 273, Page 2 of 4 ASHLEY MARIE History & Physical troponin negative. BNP 43. CMP on admission revealed glucose of 137, this morning glucose 240, sodium 134. CT of the chest with right middle and upper lobe infiltrates. IMPRESSION: 1. Acute community acquired pneumonia, multi-lobe in an immunocompromised patient with advanced chronic obstructive pulmonary disease. 2. Chronic obstructive pulmonary disease exacerbation. 3. Hyperglycemia, likely secondary to steroids. PLAN: She was admitted to the hospital on broad spectrum IV antibiotics with Rocephin and Zithromax, oxygen support, prednisone 40 mg daily, DuoNeb treatments, incentive spirometry and acapella. Will monitor blood sugars as well as check a hemoglobin A1c. Blood sugars likely elevated due to recent steroids. She is on SCDs for DVT prophylaxis and chronic medical problems appear stable at present. Above was discussed with the patient. All of her questions were answered. She verbalized understanding of the plan. I evaluated the patient myself, the above E&M is accurate reflection of work done by me Niharika Ivey M.D. Dictated by eduarda Alcazar for Dr. Ivey. 08/02/18 10:41 JOB #: [id number] Transcribed By: sherri 08/02/18 10:48 Electronically signed by: GIOVANNI IVEY MD 08/04/18 06:18 Update to H&P: [ ] No changes: I have examined the patient and reviewed the H&P and there are no changes. [ ] As previously dictated with the following changes: Page 3 of 4 ASHLEY Mikey History & Physical PHYSICIAN SIGNATURE: TIME: DATE: Page 4 of 4 ASHLEY Mikey History & Physical CBC Collected: 08/04/2018 Status: F Source: [facility] 5:31 AM [facility] REPOSITORY TYPE CODE TESTS RESULT OUT OF RANGE REFERENCE UNITS LAB CBC(LOINC) CBC Result Comment: CBC-COMPLETE BLOOD COUNT LAB WBC(LOINC) 4.5 - 10.8 x 10EE3/UL WBC High 13.7 LAB RBC(LOINC) 4.10 - x 10EE6/UL 5.30 RBC Low 3.98 LAB HEMOGLOBIN(LOINC 12.0 - g/dl ) 16.0 Low HEMOGLOBIN 11.7 LAB HEMATOCRIT(LOINC 34.0 - % ) 46.0 HEMATOCRIT 35.7 LAB MCV(LOINC) 80 - 99 fl MCV 90 LAB MCH(LOINC) 27 - 33 pg MCH 30 LAB MCHC(LOINC) 32 - 36 X10 3 MCHC 33 LAB RDW/CV(LOINC) 12.0 - % 15.6 RDW/CV 14.5 LAB PLATELET(LOINC) 150 - 450 x10EE3/UL PLATELET 310 LAB MPV(LOINC) 6.6 - 10.5 fl MPV 7.6 Result Comment: AUTOMATED DIFFERENTIAL LAB NEUT %(LOINC) 46.0 - 76.0 % NEUT % High 79.3 LAB LYMPH %(LOINC) 20.0 - 45.0 % Low LYMPH % 14.9 LAB MONOS %(LOINC) 0.0 - 10.0 % MONOS % 5.3 LAB EO %(LOINC) 0.0 - 7.0 % EO % 0.1 LAB BASO %(LOINC) 0.0 - 2.0 % BASO % 0.4 LAB Lymph #(LOINC) 0.80 - 2.80 x10EE3/U L Lymph # 2.00 LAB Neut #(LOINC) 1.50 - 7.10 x10EE3/U L Neut # High 10.90 LAB [place] #(LOINC) 0.20 - 1.00 x10EE3/U L [place] # 0.70 LAB EO #(LOINC) 0.00 - 0.50 x10EE3/U L EO # 0.00 LAB Baso #(LOINC) 0.00 - 0.10 x10EE3/U L Baso # 0.10 LAB MANUAL DIFF(LOINC) MANUAL DIFF N/A LAB MORPHOLOGY(LOINC ) MORPHOLOGY N/A Result Comment: {CD] Performed By: #### [id number] #### [facility],[address] [place] [address] BMP WITH EGFR Collected: 08/04/2018 Status: F Source: [facility] 5:31 AM [facility] REPOSITORY TYPE CODE TESTS RESULT OUT OF RANGE REFERENCE UNITS LAB BMP with eGFR(LOINC) BMP with eGFR Result Comment: BASIC METABOLIC PANEL LAB SODIUM(LOINC) 136 - 145 mmol/l SODIUM 139 LAB POTASSIUM(LOINC) 3.5 - 5.1 mmol/L Low POTASSIUM 3.2 LAB CHLORIDE(LOINC) 98 - 107 mmol/L CHLORIDE 107 LAB CO2(LOINC) 21.0 - mmol/L 31.0 CO2 26.2 LAB GLUCOSE(LOINC) 74 - 106 mg/dl GLUCOSE High 107 LAB BUN(LOINC) 6 - 20 mg/dl BUN 8 LAB CREATININE(LOINC) 0.6 - 1.2 mg/dl CREATININE 0.6 LAB CALCIUM(LOINC) 8.6 - mg/dl 10.2 CALCIUM Low 8.5 LAB ANION GAP(LOINC) 10 - 20 mmol/L ANION Low GAP 9 LAB AGE(LOINC) years AGE 67 LAB eGFR(LOINC) 60 - 999 ML/MINUTE eGFR >60 LAB eGFR(AA)(LOINC) 60 - 999 ML/MINUTE eGFR(AA) >60 Result Comment: ACCORDING TO THE NATIONAL KIDNEY DISEASE EDUCATION PROGRAM(NKDE), A NORMAL eGFR IS A VALUE GREATER THAN OR EQUAL TO 60 ML/MIN/1.73 SQ METERS. CHRONIC KIDNEY DISEASE: <60mL/MIN/1.73 SQ METERS KIDNEY FAILURE: <15mL/MIN/1.73 SQ METERS THIS TEST SHOULD ONLY BE USED FOR PATIENTS 18 YEARS OF AGE AND OLDER. Performed By: #### [id number] #### [facility],[address] [facility] [address] CBC Collected: 08/03/2018 Status: F Source: [facility] 5:43 AM [facility] REPOSITORY TYPE CODE TESTS RESULT OUT OF RANGE REFERENCE UNITS LAB CBC(LOINC) CBC Result Comment: CBC-COMPLETE BLOOD COUNT LAB WBC(LOINC) 4.5 - 10.8 x 10EE3/UL WBC High 18.5 LAB RBC(LOINC) 4.10 - x 10EE6/UL 5.30 RBC Low 3.92 LAB HEMOGLOBIN(LOINC 12.0 - g/dl ) 16.0 Low HEMOGLOBIN 11.7 LAB HEMATOCRIT(LOINC 34.0 - % ) 46.0 HEMATOCRIT 35.0 LAB MCV(LOINC) 80 - 99 fl MCV 90 LAB MCH(LOINC) 27 - 33 pg MCH 30 LAB MCHC(LOINC) 32 - 36 X10 3 MCHC 34 LAB RDW/CV(LOINC) 12.0 - % 15.6 RDW/CV 14.5 LAB PLATELET(LOINC) 150 - 450 x10EE3/UL PLATELET 276 LAB MPV(LOINC) 6.6 - 10.5 fl MPV 7.9 Result Comment: AUTOMATED DIFFERENTIAL LAB NEUT %(LOINC) 46.0 - 76.0 % NEUT % High 87.0 LAB LYMPH %(LOINC) 20.0 - 45.0 % Low LYMPH % 6.7 LAB MONOS %(LOINC) 0.0 - 10.0 % MONOS % 6.1 LAB EO %(LOINC) 0.0 - 7.0 % EO % 0.0 LAB BASO %(LOINC) 0.0 - 2.0 % BASO % 0.2 LAB Lymph #(LOINC) 0.80 - 2.80 x10EE3/U L Lymph # 1.20 LAB Neut #(LOINC) 1.50 - 7.10 x10EE3/U L Neut # High 16.10 LAB [place] #(LOINC) 0.20 - 1.00 x10EE3/U L [place] # High 1.10 LAB EO #(LOINC) 0.00 - 0.50 x10EE3/U L EO # 0.00 LAB Baso #(LOINC) 0.00 - 0.10 x10EE3/U L Baso # 0.00 LAB MANUAL DIFF(LOINC) MANUAL DIFF N/A LAB MORPHOLOGY(LOINC ) MORPHOLOGY N/A Result Comment: {CD] Performed By: #### [id number] #### [place] [id number] BMP WITH EGFR Collected: 08/03/2018 Status: F Source: [facility] 5:43 AM [facility] REPOSITORY TYPE CODE TESTS RESULT OUT OF RANGE REFERENCE UNITS LAB BMP with eGFR(LOINC) BMP with eGFR Result Comment: BASIC METABOLIC PANEL LAB SODIUM(LOINC) 136 - 145 mmol/l SODIUM 138 LAB POTASSIUM(LOINC) 3.5 - 5.1 mmol/L POTASSIUM 3.5 LAB CHLORIDE(LOINC) 98 - 107 mmol/L CHLORIDE High 109 LAB CO2(LOINC) 21.0 - mmol/L 31.0 CO2 24.0 LAB GLUCOSE(LOINC) 74 - 106 mg/dl GLUCOSE High 152 LAB BUN(LOINC) 6 - 20 mg/dl BUN 10 LAB CREATININE(LOINC) 0.6 - 1.2 mg/dl CREATININE 0.6 LAB CALCIUM(LOINC) 8.6 - mg/dl 10.2 CALCIUM Low 8.4 LAB ANION GAP(LOINC) 10 - 20 mmol/L ANION Low GAP 9 LAB AGE(LOINC) years AGE 67 LAB eGFR(LOINC) 60 - 999 ML/MINUTE eGFR >60 LAB eGFR(AA)(LOINC) 60 - 999 ML/MINUTE eGFR(AA) >60 Result Comment: ACCORDING TO THE NATIONAL KIDNEY DISEASE EDUCATION PROGRAM(NKDE), A NORMAL eGFR IS A VALUE GREATER THAN OR EQUAL TO 60 ML/MIN/1.73 SQ METERS. CHRONIC KIDNEY DISEASE: <60mL/MIN/1.73 SQ METERS KIDNEY FAILURE: <15mL/MIN/1.73 SQ METERS THIS TEST SHOULD ONLY BE USED FOR PATIENTS 18 YEARS OF AGE AND OLDER. Performed By: #### [id number] #### [place] [id number] HGB A1C Collected: 08/03/2018 Status: F Source: [facility] 5:43 AM [facility] REPOSITORY TYPE CODE TESTS RESULT OUT OF RANGE REFERENCE UNITS LAB HGB 4.4 - 6.4 % A1C(LOINC) HGB A1C 6.0 Result Comment: {HB] {A1] Performed By: #### [id number] #### [facility],[address] [place] [address] Observed: 08/02/2018 Status: F Source: [facility] CULTURE SPUTUM 3:32 PM [facility] REPOSITORY CULTURE SPUTUM _SPUTUM CULTURE_ SPUTUM SPECIMEN EXAMINATION SPUTUM ACCEPTABLE ? GRAM STAIN AMOUNT AND DESCRIPTION _MODERATE_WBC'S 08/02/18.1721.WKK. _FEW_EPI_CELLS 08/02/18.WKK. _FEW_GRAM_POSITIVE_COCCI 08/02/18.1721.WKK. M I C R O B I O L O G Y R E P O R T FINAL Antimicrobial Susceptibility and Organism Identification Report Specimen Number : [id number] Requested : 08/02/18 Specimen Source : SPUTUM Collected : 08/02/18 15:32 Rodriguez of Isolation : Med/Surg Received : 08/02/18 15:32 Requesting Physician : YAMILEX PHYSICIAN Patient/Specimen Tests and Comments Specimen Comments FINAL REPORT: ABUNDANT GROWTH Yeast-No ID unless requested Tech : Source : SPUTUM ID # : [id number] FINAL Report Date : / / : Collected : 08/02/18 15:32 08/04/18.JLN. 08/03/18.JLN. 08/04/18.JLN.COMPLETE Performed By: #### [id number] #### [facility],[address] [place] [address] CMP WITH EGFR Collected: 08/02/2018 Status: F [facility] REPOSITORY TYPE CODE TESTS RESULT OUT OF RANGE REFERENCE UNITS LAB CMP with eGFR(LOINC) CMP with eGFR Result Comment: COMPREHENSIVE METABOLIC PANEL LAB SODIUM(LOINC) 136 - 145 mmol/l SODIUM Low 134 LAB POTASSIUM(LOINC) 3.5 - 5.1 mmol/L POTASSIUM 3.7 LAB CHLORIDE(LOINC) 98 - 107 mmol/L CHLORIDE 102 LAB CO2(LOINC) 21.0 - mmol/L 31.0 CO2 21.9 LAB GLUCOSE(LOINC) 74 - 106 mg/dl GLUCOSE High 240 LAB BUN(LOINC) 6 - 20 mg/dl BUN 11 LAB CREATININE(LOINC) 0.6 - 1.2 mg/dl CREATININE 0.8 LAB AST/SGOT(LOINC) 13 - 39 U/L AST/SGOT Low 12 LAB ALK PHOS(LOINC) 38 - 126 U/L ALK PHOS 47 LAB CALCIUM(LOINC) 8.6 - mg/dl 10.2 CALCIUM 8.7 LAB TOTAL 6.4 - 8.3 g/dl PROTEIN(LOINC) TOTAL Low PROTEIN 6.3 LAB ALBUMIN(LOINC) 3.4 - 4.8 g/dL ALBUMIN 3.8 LAB GLOBULIN(LOINC) 1.5 - 3.8 G/DL GLOBULIN 2.5 LAB A/G RATIO(LOINC) 0.9 - 1.6 A/G RATIO 1.5 LAB TOTAL BILI(LOINC) 0.0 - 1.5 mg/dl TOTAL BILI 0.3 LAB B/C RATIO(LOINC) 0 - 30 ratio B/C RATIO 14 LAB ALT/SGPT(LOINC) 8 - 35 U/L ALT/SGPT 12 LAB ANION GAP(LOINC) 10 - 20 mmol/L ANION GAP 14 LAB AGE(LOINC) years AGE 67 LAB eGFR(LOINC) 60 - 999 ML/MINUTE eGFR >60 LAB eGFR(AA)(LOINC) 60 - 999 ML/MINUTE eGFR(AA) >60 Result Comment: ACCORDING TO THE NATIONAL KIDNEY DISEASE EDUCATION PROGRAM(NKDE), A NORMAL eGFR IS A VALUE GREATER THAN OR EQUAL TO 60 ML/MIN/1.73 SQ METERS. CHRONIC KIDNEY DISEASE: <60mL/MIN/1.73 SQ METERS KIDNEY FAILURE: <15mL/MIN/1.73 SQ METERS THIS TEST SHOULD ONLY BE USED FOR PATIENTS 18 YEARS OF AGE AND OLDER. Performed By: #### [id number] #### [facility],[address] [place] [address] CBC Collected: 08/02/2018 Status: F Source: [facility] 5:40 AM [facility] REPOSITORY TYPE CODE TESTS RESULT OUT OF RANGE REFERENCE UNITS LAB CBC(LOINC) CBC Result Comment: CBC-COMPLETE BLOOD COUNT LAB WBC(LOINC) 4.5 - 10.8 x 10EE3/UL WBC High 15.9 LAB RBC(LOINC) 4.10 - x 10EE6/UL 5.30 RBC 4.42 LAB HEMOGLOBIN(LOINC 12.0 - g/dl ) 16.0 HEMOGLOBIN 13.1 LAB HEMATOCRIT(LOINC 34.0 - % ) 46.0 HEMATOCRIT 39.1 LAB MCV(LOINC) 80 - 99 fl MCV 88 LAB MCH(LOINC) 27 - 33 pg MCH 30 LAB MCHC(LOINC) 32 - 36 X10 3 MCHC 33 LAB RDW/CV(LOINC) 12.0 - % 15.6 RDW/CV 14.0 LAB PLATELET(LOINC) 150 - 450 x10EE3/UL PLATELET 280 LAB MPV(LOINC) 6.6 - 10.5 fl MPV 7.7 Result Comment: AUTOMATED DIFFERENTIAL LAB NEUT %(LOINC) 46.0 - 76.0 % NEUT % High 94.9 LAB LYMPH %(LOINC) 20.0 - 45.0 % Low LYMPH % 3.2 LAB MONOS %(LOINC) 0.0 - 10.0 % MONOS % 1.9 LAB EO %(LOINC) 0.0 - 7.0 % EO % 0.0 LAB BASO %(LOINC) 0.0 - 2.0 % BASO % 0.0 LAB Lymph #(LOINC) 0.80 - 2.80 x10EE3/U Low L Lymph # 0.50 LAB Neut #(LOINC) 1.50 - 7.10 x10EE3/U L Neut # High 15.10 LAB [place] #(LOINC) 0.20 - 1.00 x10EE3/U L [place] # 0.30 LAB EO #(LOINC) 0.00 - 0.50 x10EE3/U L EO # 0.00 LAB Baso #(LOINC) 0.00 - 0.10 x10EE3/U L Baso # 0.00 LAB MANUAL DIFF(LOINC) MANUAL DIFF N/A LAB MORPHOLOGY(LOINC ) MORPHOLOGY N/A Result Comment: {CD] Performed By: #### [id number] #### [facility],[address] [place] [address] [address] CHEST (PE PROTOCOL) Observed: 08/01/2018 Status: F Source: [facility] 9:[address] [address] Patient: ASHLEY MARIE Phone#: : 1950 Age: 67 Gender: F Pt. Type: ER Account: [id number] Location: 052 Ordering: PETERSON KEITA Exam Date: 08/01/2018/21:40 Family Phys: KAVITA IVEY Charge Code: 278023 Physician: Curry Order #: [id number] DLP Dose#: 6.10 PROCEDURE: CT CHEST WITH CONTRAST FOR PE COMPARISON: [facility], XR, CHEST 2 VIEWS, 08/01/2018, 19:31. [facility], CT, CHEST PE W CON, 12/19/2016, 18:49. INDICATIONS: Shortness of Breath TECHNIQUE: After obtaining the patient's consent, CT images were obtained with non-ionic intravenous contrast material. Multi-planar images were created to optimize visualization of vascular anatomy with MPR/MIPS and 3D imaging. All CT scans at this facility use dose modulation, iterative reconstruction, and/or weight based dosing when appropriate to reduce radiation dose to as low as reasonably achievable. IV CONTRAST: Omnipaque 350,74ml TOTAL DOSE: 6.10 CTDIvol(mGy) FINDINGS: VASCULATURE: Normal. No visible pulmonary arterial thrombus or attenuation. AORTA: No aortic aneurysm. Calcified and noncalcified atherosclerotic plaque. LUNGS: There are emphysematous changes. There is an infiltrate in the right middle lobe laterally and right upper lobe in the inferior and posterior aspect. No acute left parenchymal abnormality. There is bilateral diffuse emphysematous change. LUCY: Stable postsurgical changes at the right inferior hilum, consistent with right lower lobectomy MEDIASTINUM: There are small mediastinal lymph nodes. CARDIAC: Normal. No enlargement, pericardial thickening, or significant calcification. PLEURA: Normal. No mass or effusion. CHEST WALL: Stable axillary lymph nodes, largest is in the right and measures 0.8 cm, previously 0.8 cm. Continued Report - Page 2 of 2 Patient: ASHLEY MARIE Phone#: : 1950 Age: 67 Gender: F Pt. Type: ER Account: [id number] Location: 052 Ordering: PETERSON KEITA Exam Date: 08/01/2018/21:40 Family Phys: KAVITA IVEY Charge Code: 435111 Physician: Curry Order #: [id number] DLP Dose#: 6.10 LIMITED ABDOMEN: Normal. Limited images of the upper abdomen are unremarkable. BONES: Wedge shaped deformity of T11. OTHER: Negative. CONCLUSION: 1. Right middle and upper lobe infiltrates at the lung base, corresponding to radiographic finding. Recommend followup to clearing. 2. No pulmonary embolism. Dictated by: Tea Oneill MD on 08/01/2018 at 22:10 Approved by: Tea Oneill MD on 08/01/2018 at 22:10 CHEST 2 VIEWS Observed: 08/01/2018 Status: F Source: [facility] 7:53 PM [place] [id number] Patient: ASHLEY MARIE Phone#: : 1950 Age: 67 Gender: F Pt. Type: ER Account: [id number] Location: 2 Ordering: PETERSON KEITA Exam Date: 08/01/2018/19:31 Family Phys: KAVITA IVEY Charge Code: 114389 Physician: Curry Order #: [id number] DLP Dose#: PROCEDURE: X-RAY CHEST 2 VIEWS COMPARISON: [facility], , CHEST 2 VIEWS, 02/17/2018, 10:30. INDICATIONS: Pneumonia FINDINGS: LUNGS: Right lateral lung base infiltrate VASCULATURE: Normal. Unremarkable pulmonary vasculature. CARDIAC: Normal. No cardiac silhouette abnormality or cardiomegaly. MEDIASTINUM: Calcified left hilar lymph node. Aortic calcifications. PLEURA: Normal. No effusion or pleural thickening. BONES: Normal. No fracture or visible bony lesion. OTHER: Negative. CONCLUSION: 1. Right lateral lung base infiltrate consistent with pneumonia. Recommend followup to clearing. Dictated by: Tea Oneill MD on 08/01/2018 at 19:56 Approved by: Tea Oneill MD on 08/01/2018 at 19:56 CBC Collected: 08/01/2018 Status: F Source: [facility] 7:25 PM [facility] REPOSITORY TYPE CODE TESTS RESULT OUT OF RANGE REFERENCE UNITS LAB CBC(LOINC) CBC Result Comment: CBC-COMPLETE BLOOD COUNT LAB WBC(LOINC) 4.5 - 10.8 x 10EE3/UL WBC High 19.8 LAB RBC(LOINC) 4.10 - x 10EE6/UL 5.30 RBC 4.57 LAB HEMOGLOBIN(LOINC 12.0 - g/dl ) 16.0 HEMOGLOBIN 13.7 LAB HEMATOCRIT(LOINC 34.0 - % ) 46.0 HEMATOCRIT 40.2 LAB MCV(LOINC) 80 - 99 fl MCV 88 LAB MCH(LOINC) 27 - 33 pg MCH 30 LAB MCHC(LOINC) 32 - 36 X10 3 MCHC 34 LAB RDW/CV(LOINC) 12.0 - % 15.6 RDW/CV 14.2 LAB PLATELET(LOINC) 150 - 450 x10EE3/UL PLATELET 307 LAB MPV(LOINC) 6.6 - 10.5 fl MPV 7.3 Result Comment: AUTOMATED DIFFERENTIAL LAB NEUT %(LOINC) 46.0 - 76.0 % NEUT % High 87.7 LAB LYMPH %(LOINC) 20.0 - 45.0 % Low LYMPH % 5.0 LAB MONOS %(LOINC) 0.0 - 10.0 % MONOS % 6.5 LAB EO %(LOINC) 0.0 - 7.0 % EO % 0.2 LAB BASO %(LOINC) 0.0 - 2.0 % BASO % 0.6 LAB Lymph #(LOINC) 0.80 - 2.80 x10EE3/U L Lymph # 1.00 LAB Neut #(LOINC) 1.50 - 7.10 x10EE3/U L Neut # High 17.40 LAB [place] #(LOINC) 0.20 - 1.00 x10EE3/U L [place] # High 1.30 LAB EO #(LOINC) 0.00 - 0.50 x10EE3/U L EO # 0.00 LAB Baso #(LOINC) 0.00 - 0.10 x10EE3/U L Baso # 0.10 LAB MANUAL DIFF(LOINC) MANUAL DIFF N/A LAB MORPHOLOGY([facility] ) MORPHOLOGY N/A Result Comment: {CD] Performed By: #### [id number] #### [place] [address] TROPONIN Collected: 08/01/2018 Status: F Source: [facility] 7:[address] [facility] REPOSITORY TYPE CODE TESTS RESULT OUT OF REFERENCE UNITS RANGE LAB TROPONIN 0.00 - 0.05 ng/ml I(LOINC) TROPONIN I <0.01 Result Comment: Elevated troponin (above the 99th percentile) usually indicates myocardial ischemia. Results must be interpreted within the clinical setting. 1.Non-ischemic pathology can also cause elevated troponin levels (e.g., acute pulmonary embolism, myocarditis, pericarditis, heart failure, intracranial injury, rhabdomyolisis, sepsis, shock and renal insufficiency). 2.Approximately 1% of healthy adults have elevated troponin levels. 3.Analytical false positive results rarely occur(due to multiple interferences such as heterophile antibodies). Performed By: #### [id number] #### [place] [address] CMP WITH EGFR Collected: 08/01/2018 Status: F Source: [facility] 7:[address] [place] [address] REPOSITORY TYPE CODE TESTS RESULT OUT OF RANGE REFERENCE UNITS LAB CMP with eGFR(LOINC) CMP with eGFR Result Comment: COMPREHENSIVE METABOLIC PANEL LAB SODIUM(LOINC) 136 - 145 mmol/l SODIUM Low 134 LAB POTASSIUM(LOINC) 3.5 - 5.1 mmol/L POTASSIUM 3.6 LAB CHLORIDE(LOINC) 98 - 107 mmol/L CHLORIDE 100 LAB CO2(LOINC) 21.0 - mmol/L 31.0 CO2 23.6 LAB GLUCOSE(LOINC) 74 - 106 mg/dl GLUCOSE High 137 LAB BUN(LOINC) 6 - 20 mg/dl BUN 10 LAB CREATININE(LOINC) 0.6 - 1.2 mg/dl CREATININE 0.8 LAB AST/SGOT(LOINC) 13 - 39 U/L AST/SGOT 15 LAB ALK PHOS(LOINC) 38 - 126 U/L ALK PHOS 54 LAB CALCIUM(LOINC) 8.6 - mg/dl 10.2 CALCIUM 9.1 LAB TOTAL 6.4 - 8.3 g/dl PROTEIN(LOINC) TOTAL PROTEIN 6.9 LAB ALBUMIN(LOINC) 3.4 - 4.8 g/dL ALBUMIN 4.2 LAB GLOBULIN(LOINC) 1.5 - 3.8 G/DL GLOBULIN 2.7 LAB A/G RATIO(LOINC) 0.9 - 1.6 A/G RATIO 1.6 LAB TOTAL BILI(LOINC) 0.0 - 1.5 mg/dl TOTAL BILI 0.8 LAB B/C RATIO(LOINC) 0 - 30 ratio B/C RATIO 13 LAB ALT/SGPT(LOINC) 8 - 35 U/L ALT/SGPT 14 LAB ANION GAP(LOINC) 10 - 20 mmol/L ANION GAP 14 LAB AGE(LOINC) years AGE 67 LAB eGFR(LOINC) 60 - 999 ML/MINUTE eGFR >60 LAB eGFR(AA)(LOINC) 60 - 999 ML/MINUTE eGFR(AA) >60 Result Comment: ACCORDING TO THE NATIONAL KIDNEY DISEASE EDUCATION PROGRAM(NKDE), A NORMAL eGFR IS A VALUE GREATER THAN OR EQUAL TO 60 ML/MIN/1.73 SQ METERS. CHRONIC KIDNEY DISEASE: <60mL/MIN/1.73 SQ METERS KIDNEY FAILURE: <15mL/MIN/1.73 SQ METERS THIS TEST SHOULD ONLY BE USED FOR PATIENTS 18 YEARS OF AGE AND OLDER. Performed By: #### [id number] #### [facility],[address] [place] [address] D-DIMER, QUANTITATIVE Collected: 08/01/2018 Status: F Source: [facility] 7:25 PM [facility] REPOSITORY TYPE CODE TESTS RESULT OUT OF REFERENCE UNITS RANGE LAB D-DIMER, QUANTITATI VE(LOINC) D-DIMER, QUANTITATIVE Result Comment: QUANT D-DIMER LAB D-DIMER 0 - 230 ng/ml QUANT(LOINC) High D-DIMER QUANT 273 Performed By: #### [id number] #### [place] [address] BNP (B-TYPE NATRIURETIC Collected: 08/01/2018 Status: F Source: [facility] [place]) 7:25 PM [facility] REPOSITORY TYPE CODE TESTS RESULT OUT OF RANGE REFERENCE UNITS LAB BNP(LOINC) 1 - 100 pg/ml BNP 43 Performed By: #### [id number] #### [facility],[address] [place] [address] OPERATIVE PROCEDURES Observed: 04/14/2018 Status: F Source: [facility] 10:31 AM [facility] OPERATIVE REPORT NAME ACCOUNT SEX AGE ADMIT DISCHARGE PT MED. RECORD# NUMBER DATE DATE TYPE ASHLEY MARIE [id number] F 67 04/13/18 04/13/18 2 [id number] ROOM: [facility] DATE OF : 1950 DICTATING PHYSICIAN: Alejandro Sandy DATE OF SURGERY: April 13, 2018, 9:49 a.m. SURGEON: Alejandro Sandy MD SALES PRODUCT MANAGER: ANESTHESIOLOGIST: ANESTHETIC: MAC PREOPERATIVE DIAGNOSIS: Screening colonoscopy. POSTOPERATIVE DIAGNOSES: 1. Sigmoid diverticulosis. 2. Sigmoid polyp. 3. Rectosigmoid polyp. OPERATION PERFORMED: 1. Colonoscopy. 2. Cold grasp polypectomy x2. 3. Random sigmoid colon mucosa cold grasp biopsy. COMPLICATIONS: None. ESTIMATED BLOOD LOSS: Minimal. DRAINS: None. SPECIMEN: 1. Sigmoid colon polyp. 2. Sigmoid colon mucosa. 3. Rectosigmoid polyp. SIGNIFICANT FINDINGS: Colon prep was good. Both polyps were small, sessile and completely grossly excised. Small area of erythematous mucosa within the sigmoid colon with no other associated features possibly representing colitis, biopsied. Page 1 of 2 ASHLEY MARIE Operative Report DISPOSITION: Home. Diet: Regular. Activity: Regular. Medications: Regular. Follow up with Dr. Sandy's clinic in 2 weeks. RECOMMENDATION: Further recommendations will be based off the pathology. DESCRIPTION OF OPERATION: Following the initiation of MAC anesthesia, the patient was placed in the left lateral decubitus position. A digital rectal examination was performed. There were no findings on digital rectal examination. Flexible colonoscope was then introduced into the anus and advanced to the ileocecal junction under direct visualization. The scope was then slowly withdrawn and the colonic mucosa inspected meticulously. It was noted that the colonic prep was good. There were no abnormalities appreciated within the cecum, ascending colon, transverse colon, or descending colon. Within the sigmoid colon, the patient was found to have diffuse moderate severity diverticulosis. There was no evidence of diverticulitis and/or diverticular bleeding. The patient was also found to have a small sessile polyp within her sigmoid colon. This was grossly entirely excised using a cold grasp polypectomy forcep. Further withdrawing of the scope, revealed a small flat erythematous patch of mucosa within the sigmoid colon that was possibly representing mild acute colitis. For this reason, a random cold grasp biopsy was obtained from this area. As the scope was withdrawn to the rectosigmoid junction, the patient had another small sessile polyp that was completely grossly excised using a cold grasp polypectomy forcep. The scope was then withdrawn into the rectum and retroflexed. There were no abnormalities within the rectum. The scope was then straightened, the colon desufflated, and the scope removed. The patient was then awakened and taken to the PACU in good and stable condition. Dictated By: Alejandro Sandy MD 04/13/18 09:52 JOB #: [id number] Transcribed By: am 04/13/18 18:16 Electronically signed by: E-SIGN DR. SANDY 04/14/18 10:31 Page 2 of 2 ASHLEY MARIE Operative Report FINAL SURGICAL Observed: 04/13/2018 Status: F Source: [facility] PATHOLOGY REPORT 7:22 [facility] REPOSITORY . Pathology Reports Accession: Collected Date/Time: Received Date/Time: Pathologist: [id number] 04/13/2018 07:22 EDT 04/14/2018 07:22 EDT DO GLO THORNTON Final Surgical Pathology Report DIAGNOSIS: A) HYPERPLASTIC POLYP, SIGMOID COLON. B) RANDOM SIGMOID COLON BIOPSIES: - ISCHEMIC COLITIS. C) HYPERPLASTIC POLYP, RECTOSIGMOID. COMMENT: [facility]# [id number] CLINICAL INFORMATION: SCREENING SPECIMEN: A POLYP, SIGMOID B COLON, BX - RANDOM SIGMOID C POLYP, RECTOSIGMOID GROSS DESCRIPTION: A. Received in formalin labeled sigmoid is a 0.3 cm gomez glistening soft tissue. TS -1 B. Received in formalin labeled random sigmoid biopsy is a 0.2 cm gomez glistening soft tissue. TS -1 C. Received in formalin labeled rectosigmoid is a 0.3 cm gomez glistening, semitranslucent soft tissue. TS -1 Dictated by DANA ANTUNEZ [facility] MICROSCOPIC DESCRIPTION: Slides reviewed. Electronically Signed by Pathology Report verified by [facility] Electronically signed by GLO THORNTON DO Sign out Date: 04/17/2018 10:12 Performing Lab: [facility], [address] [place] [id number] [place] [address] States Performed By: #### SPFR #### [facility] [address] [place] [address] DISCHARGE SUMMARY Observed: 02/27/2018 Status: F [facility] DISCHARGE SUMMARY NAME ACCOUNT SEX AGE ADMIT DISCHARGE PT MED. RECORD# NUMBER DATE DATE TYPE ASHLEY MARIE [id number] F 67 02/17/18 02/20/18 1 [id number] ROOM: [facility] DATE OF : 1950 DICTATING PHYSICIAN: Kavita Ivey ADMITTING DIAGNOSIS: Acute COPD exacerbation. FINAL DIAGNOSES: 1. Acute chronic obstructive pulmonary disease exacerbation - treated and improved. 2. Chronic obstructive pulmonary disease - advanced. 3. Lower respiratory tract infection, mainly pneumonia with infiltrate on the right side responsible for chronic obstructive pulmonary disease exacerbation. 4. History of lung cancer. 5. Hypoxemia. 6. Anxiety. HOSPITAL COURSE: This is a pleasant 67-year-old lady who was treated as an outpatient for COPD exacerbation. She was initiated on antibiotics and steroids, as well as her albuterol treatment in the office. After 2 days of trying this, she continued to get worse. The cough increased, became markedly short of breath, and presented to the emergency room, and in there, the patient did have severe bilateral wheezes, some infiltrate on the right side where she has her previous surgery and likely to be pneumonia. Laboratory data did confirm high white count at 11.1 with hemoglobin of 11.4. Chemistries revealed a sodium of 3.4. The patient was admitted and initiated on IV fluids, broad spectrum antibiotics, IV steroid, bronchodilator, and her usual medication. Initial day, still revealed severe wheezes and continued on treatment. On the following day, she had some improvement with reduction of the wheezes, and with her continuation of improvement, she was switched to oral prednisone. On the day of discharge, she was free of wheezes, feeling fine, and discharged home in stable condition. Condition on discharge improved. DISPOSITION: Discharge destination home. MEDICATIONS ON DISCHARGE: The patient was discharged on Ceftin 250 mg twice daily for 5 days and prednisone 40 mg daily for 5 days. Prilosec was stopped, and the patient initiated on famotidine 20 mg daily. The patient will resume her other medications as follows: She will get albuterol with Atrovent aerosol treatment 4 times daily at least, Tylenol 650 every 4 hours as needed, cough syrup 5 mL every 4 hours as needed, Nystatin Swish and Swallow 4 times daily, saline nose spray 2 sprays each nostril 4 to 6 times a day, Senna S 1 tablet daily, amlodipine 5 mg daily, vitamin B Page 1 of 2 ASHLEY MARIE Discharge Summary complex daily, Lovastatin 20 mg daily, citalopram 20 mg daily, Cozaar 50 mg daily, vitamin daily, alprazolam 0.5 mg 3 times daily as needed for anxiety, ProAir 2 puffs as needed with a spacer, which is new to the patient, every 2 to 3 hours as needed, Tramadol 50 mg 4 times daily as needed for pain. DISCHARGE INSTRUCTIONS/PLAN: Discharge destination home. Diet: Regular. Activity: As tolerated. Follow up with me as an outpatient. D: Kavita Ivey MD TD: 02/21/18 15:13 JOB #: [id number] Transcribed by: am Electronically signed by: GIOVANNI IVEY MD 02/27/18 22:10 Page 2 of 2 ASHLEY MARIE Discharge Summary PROGRESS NOTE Observed: 02/27/2018 Status: F [facility] PROGRESS NOTE NAME ACCOUNT SEX AGE ADMIT DISCHARGE TYPE MED. RECORD# NUMBER DATE DATE ASHLEY MARIE [id number] F 67 02/17/18 1 [id number] ROOM: [facility] DATE OF : 1950 DICTATING PHYSICIAN: Kavita Ivey CPDATE OF SERVICE: February 19, 2018 SUBJECTIVE: Ms. Marie started to exhibit some improvement today with less audible wheezing. She continued to have some cough, but this has been also improving. She denies any chest pain. OBJECTIVE: The patient is afebrile now. Her highest temperature was 99 yesterday. Blood pressure is 140/82, respirations 14, and heart rate 92. HEENT: Pupils are equal, round, and reactive. Tongue to midline. Neck was supple. Lungs revealed a few crackles on the right side posteriorly and minimal wheezing. The heart was regular. Abdomen was soft. Extremities revealed no edema. DIAGNOSTIC DATA: White count was 14.3, hemoglobin 12.2, and hematocrit 36.1. Sodium is 140, potassium 3.8, chloride 107, bicarbonate 26.7, BUN 8, and creatinine 0.6. ASSESSMENT/PLAN: 1. Acute chronic obstructive pulmonary disease exacerbation, slightly improving at this point. 2. Pneumonia, right lower lobe, improving. The patient, of note, has failed outpatient therapy. We will continue our current measures. We will reassess the situation in the morning. D: Kavita Ivey MD TD: 02/19/18 21:21 JOB #: [id number] Transcribed by: wilberto Electronically signed by: GIOVANNI IVEY MD 02/27/18 22:05 Page 1 of 1 ASHLEY MARIE Mikey Progress Note PROGRESS NOTE Observed: 02/27/2018 Status: F Source: [facility] 10:03 PM [facility] PROGRESS NOTE NAME ACCOUNT SEX AGE ADMIT DISCHARGE TYPE MED. RECORD# NUMBER DATE DATE ASHLEY MARIE [id number] F 67 02/17/18 1 [id number] ROOM: [facility] DATE OF : 1950 DICTATING PHYSICIAN: Kavita Ivey DATE OF SERVICE: 02/18/2018 SUBJECTIVE: Ms. Marie continues to be somewhat short of breath with some cough. Denied any chest pain. She still has according to her some wheezing, but this has improved from yesterday. OBJECTIVE: Her blood pressure went up to 164/78. Heart rate was 108. She was concerned about that and she wondered whether her medications are not working anymore. I explained to her this is more likely to be the effect of the steroids she received prior to admission and now. HEENT: Pupils round, equal, reactive. Tongue to midline. Neck: Supple. Lungs: Still reveal end-expiratory wheezes and reduced air exchange. The heart was regular. Abdomen: Soft. Extremities: Revealed no edema. DIAGNOSTIC DATA: White count is 9.1, hemoglobin 13.2, hematocrit 38.5. She had left shift on the smear. Sodium 139, potassium 3.6, bicarbonate 23.3, BUN 8, Creatinine 0.6, glucose 158. ASSESSMENT: 1. Acute chronic obstructive pulmonary disease exacerbation, currently on treatment with some improvement. Of note the patient has failed outpatient therapy. 2. Lower respiratory tract infection, currently on therapy. The patient did have elevated white count on presentation and chest x-ray did reveal a density in the right lateral lung base but this was an old finding. Could be a scarring. An infiltrate in that area cannot be excluded. 3. Hypertension, fairly stable with treatment. PLAN: Continue current measures. Re-assess the situation in the morning. The patient encouraged to continue her incentive spirometries. D: Kavita Ivey MD TD: 02/18/18 20:26 JOB #: [id number] Transcribed by: [email or web address] Page 1 of 2 ASHLEY MARIE Progress Note Electronically signed by: GIOVANNI IVEY MD 02/27/18 22:03 Page 2 of 2 ASHLEY MARIE Progress Note HISTORY AND PHYSICAL Observed: 02/27/2018 Status: F Source: [facility] EXAM 10:00 PM [facility] HISTORY & PHYSICAL NAME ACCOUNT SEX AGE ADMIT DISCHARGE TYPE MED. RECORD# NUMBER DATE DATE ASHLEY MARIE [id number] F 67 02/17/18 1 [id number] ROOM: [facility] DATE OF : [birth year] DICTATING PHYSICIAN: Kavita Ivey CHIEF COMPLAINT: Shortness of breath and wheezing. HISTORY OF PRESENT ILLNESS: This is a 67-year-old female with a past medical history significant for lung cancer, severe COPD, anxiety, hypertension, and osteoarthritis. She was seen in the office on February 13, 2018, for a sore throat, increasing shortness of breath, hoarseness and fatigue. She was placed on prednisone for seven days with Ceftin. She did not improve. She states she was unable to sleep due to the cough worsening. She was short of breath, especially with activity. When she would get up and walk, she felt dizzy. She started to have rib pain from coughing. She checked her pulse oximetry at home, and it was 82-83%. She came to the Emergency Room. She was hypoxic with oxygen at 83%. She was tachycardic and hypertensive with poor air exchange and wheezing. It did not improve with aerosol treatments. She was admitted for further management. PAST MEDICAL HISTORY: (1) Osteoporosis. (2) History of colonic polyps. (3) Depression. (4) Hypercholesterolemia. (5) History of lung cancer. (6) Osteoarthritis. (7) Anxiety. (8) Hypertension. (9) GERD. (10) Stage 3 severe COPD by GOLD classification with multiple exacerbations. (11) Chronic constipation. (12) Chronic respiratory failure requiring home oxygen. (13) History of blood transfusion after delivery in 1971. PAST SURGICAL HISTORY: (1) Lobectomy. (2) x3. (3) Status post appendectomy. (4) Tonsillectomy and adenoidectomy. (5) Cataract surgery. (6) Fibroid tumor removal from the uterus. (7) Ankle surgery after trauma. (8) Knee surgery after trauma. (9) Maxillary reconstruction/oral surgery. MEDICATIONS: (1) ProAir inhaler two puffs every four hours p.r.n. (2) Senokot-S one tablet daily. (3) Losartan 50 mg daily. (4) Lovastatin 20 mg daily. (5) Prednisone daily for seven days. It started on February 13, 2018. (6) Omeprazole 40 mg daily. (7) Amlodipine 5 mg daily. (8) Alprazolam 0.5 mg twice daily p.r.n. (9) Tramadol 50 mg four times daily as needed. (10) Citalopram 20 mg daily. (11) Cefuroxime 250 mg twice daily for 7 days, started on February 13, 2018. (12) Ibuprofen 200 mg p.r.n. (13) Saline nasal spray as needed. (14) vitamin one tablet daily. (15) Vitamin B complex one tablet daily. ALLERGIES: Codeine and latex. FAMILY HISTORY: Both parents . Mother of liver cancer and had breast cancer. She also had Alzheimer's dementia. Father with emphysema. She Page 1 of 3 ASHLEY MARIE History & Physical has a half brother with valvular heart disease and prostate cancer and also cancer of the tongue, throat and ear. She has a half sister with stomach cancer diagnosed in her 30s. SOCIAL HISTORY: The patient is . She lives at home with her spouse. She quit smoking in 2002. She has four children. 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 REVIEW OF SYSTEMS: The patient did not have any fever or chills. She has had generalized weakness and fatigue, increasing shortness of breath, a cough that is mostly nonproductive, wheezing, difficulty catching her breath, and dizziness. No syncopal episodes. No chest pain. No abdominal pain or bowel or bladder changes. No previous CVAs or TIAs. PHYSICAL EXAMINATION GENERAL APPEARANCE: The patient was lying in bed in no acute distress. She is an alert, pleasant, cooperative, well-nourished, well-developed, 67-year-old female. VITAL SIGNS: Blood pressure is 164/93, heart rate 101, respirations 14, temperature 97.7, and oxygen saturation 83% on room air and 96% on two liters. Weight is 155 pounds with a BMI of 28.35. HEENT: HEENT revealed oxygen per nasal cannula and dentures, otherwise unremarkable. NECK: Supple. No nodes or masses. No JVD. No bruit. LUNGS: Increased respiratory effort. Equal lung expansion. Poor air exchange bilaterally. She is on oxygen support. Poor anterior auscultation. She did have inspiratory and expiratory wheezes. HEART: Heart is a tachycardic rate with a regular rhythm. ABDOMEN: Abdomen is soft and nontender with no hepatosplenomegaly appreciated. EXTREMITIES: Free of edema or cyanosis. Pulses are palpable in the dorsalis pedis bilaterally. NEUROLOGIC: She is alert and oriented and able to answer questions appropriately. Speech is clear. DIAGNOSTIC DATA: White count is 11.1, hemoglobin 13.4, and hematocrit 39.3. Troponin is negative. Lactate is 11. Potassium is 3.4, BUN 12, and creatinine 0.7. ABGs were completed with a pH of 7.46, pCO2 of 39, pO2 of 87, and bicarbonate of 27. Chest x-ray, PA and lateral, with a density in the right lateral lung base. Page 2 of 3 ASHLEY MARIE History & Physical IMPRESSIONS: 1. Acute chronic obstructive pulmonary disease exacerbation. 2. Lower respiratory tract infection versus pneumonia. 3. History of lung cancer. PLAN: Admit the patient to the hospital on oxygen support. Keep pulse oximetry above or equal to 92%. DuoNeb treatments, Delsym for cough, broad- spectrum IV antibiotics with IV Rocephin and Zithromax, IV Solu-Medrol, and incentive spirometry with Acapella. The above was discussed with the patient, and all of her questions were answered. She verbalized understanding of the plan. D: Kavita Ivey MD TD: 02/17/18 16:48 JOB #: [id number] Transcribed by: [email or web address] Electronically signed by: GIOVANNI IVEY MD 02/27/18 22:00 Update to H&P: [ ] No changes: I have examined the patient and reviewed the H&P and there are no changes. [ ] As previously dictated with the following changes: PHYSICIAN SIGNATURE: TIME: DATE: Page 3 of 3 ASHLEY MARIE History & Physical EMERGENCY REPORT Observed: 02/20/2018 Status: F Source: [facility] 5:54 AM [facility] EMERGENCY ROOM REPORT NAME ACCOUNT SEX AGE ADMIT DISCHARGE TYPE MED. RECORD# NUMBER DATE DATE ASHLEY MARIE [id number] F 67 02/17/18 1 [id number] ROOM: [facility] DATE OF : 1950 PHYSICIAN: Sarah Daniel DATE SEEN: 02/17/2018 at 10:10 a.m. HISTORY OF PRESENT ILLNESS: This is a 67-year-old white female with a history of COPD, complaining of shortness of breath, cough and wheezing over the past two days, which has been gradually getting worse. She has been on antibiotics this month. She just finished them last and she is on oral prednisone by her family doctor, Dr. Klein, but he symptoms are getting worse. Her cough is worse, her shortness of breath is worse and it making it almost impossible for her to sleep at night. PAST MEDICAL HISTORY: Patient has a history of COPD and lung cancer. PAST SURGICAL HISTORY: She has had a right partial lobectomy in the past. REVIEW OF SYSTEMS: Positive for cough, shortness of breath, wheezing. Denies any chest pain, abdominal pain, nausea, vomiting, diarrhea, constipation, melena, hematochezia, headache, numbness unsteady gait. Does admit to some mild diffuse weakness. Further review of systems negative. PHYSICAL EXAMINATION: The patient is alert and oriented x 3. She appears in moderate distress secondary to shortness of breath. HEENT: Head appears atraumatic. Pupils are equal and reactive to light. Red reflex intact bilaterally. Extraocular muscles intact. No conjunctival injection. Nose: Exhibits no rhinorrhea or epistaxis. Mouth: Mucous membranes are mildly dry. No pharyngeal erythema. Uvula is midline and elevates. Neck is supple. Trachea is midline. No JVD or lymphadenopathy. No posterior cervical tenderness. No nuchal rigidity. Lungs demonstrate diminished breath sounds in all lung nielson with bilateral expiratory wheezing and mild to moderate accessory muscle use. Persistent cough noted. CVS: Heart rate and rhythm is regular, mildly tachycardic. No murmur noted, but the heart sounds are somewhat distant. Abdomen is soft and nontender with normoactive bowel sounds x4 quadrants. No guarding or rigidity. No rebound. No palpable abdominal masses. No hepatosplenomegaly. Extremities: No edema or cyanosis. Peripheral pulses are intact. No motor or sensory deficits noted. Handgrip is strong and symmetric. Skin is warm and dry. No diaphoresis or rash. Neuro examination shows the patient to be alert and oriented x4. No motor or sensory deficits are noted. Some conversational dyspnea. Patient is pleasant, cooperative with a somewhat anxious affect. Page 1 of 2 ASHLEY MARIE Emergency Room Report DIAGNOSTIC DATA: Chest x-ray shows a persistent right lower lobe infiltrate/pneumonia. Sodium 139, potassium 3.4, chloride 102, C02 29.7. Glucose 97, BUN 12, Creatinine 0.7. Liver functions all came back within normal limits. Anion gap is 11. Troponin is 0.1. Lactate is 11. White count 11.1, hemoglobin 13.4, hematocrit 39.3, platelet count 311,000. Blood gas on 2 liters oxygen: Revealed pH of 7.46, PCO2 39, PO2 87, bicarb 27, 02 sat 96%. EMERGENCY DEPARTMENT COURSE AND TREATMENT: I have discussed the case with Dr. Ivey. We are going to admit the patient since on re-examination she is still diminished and wheezy although she does sound better aerated than before the breathing treatments. DIAGNOSIS: Acute exacerbation of chronic obstructive pulmonary disease and failure of outpatient therapy. PLAN/DISPOSITION: Admission plan is around the clock nebulization treatments and IV steroids. I had given the patient Zithromax 500 mg IV here as well. D: Sarah Daniel DO TD: 02/17/18 16:20 JOB #: [id number] Transcribed by: sharron Electronically signed by: E-Sign: Dr. Sarah Daniel D.O. 02/20/18 05:54 Page 2 of 2 ASHLEY MARIE Emergency Room Report CBC Collected: 02/20/2018 Status: F Source: [facility] 4:40 AM [facility] REPOSITORY TYPE CODE TESTS RESULT OUT OF RANGE REFERENCE UNITS LAB CBC(LOINC) CBC Result Comment: CBC-COMPLETE BLOOD COUNT LAB WBC(LOINC) 4.5 - 10.8 x 10EE3/UL WBC High 16.7 LAB RBC(LOINC) 4.10 - x 10EE6/UL 5.30 RBC 4.52 LAB HEMOGLOBIN(LOINC 12.0 - g/dl ) 16.0 HEMOGLOBIN 13.8 LAB HEMATOCRIT(LOINC 34.0 - % ) 46.0 HEMATOCRIT 41.5 LAB MCV(LOINC) 80 - 99 fl MCV 92 LAB MCH(LOINC) 27 - 33 pg MCH 31 LAB MCHC(LOINC) 32 - 36 X10 3 MCHC 33 LAB RDW/CV(LOINC) 12.0 - % 15.6 RDW/CV 14.0 LAB PLATELET(LOINC) 150 - 450 x10EE3/UL PLATELET 404 LAB MPV(LOINC) 6.6 - 10.5 fl MPV 7.4 Result Comment: AUTOMATED DIFFERENTIAL LAB NEUT %(LOINC) 46.0 - 76.0 % NEUT % High 89.3 LAB LYMPH %(LOINC) 20.0 - 45.0 % Low LYMPH % 7.4 LAB MONOS %(LOINC) 0.0 - 10.0 % MONOS % 3.1 LAB EO %(LOINC) 0.0 - 7.0 % EO % 0.0 LAB BASO %(LOINC) 0.0 - 2.0 % BASO % 0.2 LAB Lymph #(LOINC) 0.80 - 2.80 x10EE3/U L Lymph # 1.20 LAB Neut #(LOINC) 1.50 - 7.10 x10EE3/U L Neut # High 14.90 LAB [place] #(LOINC) 0.20 - 1.00 x10EE3/U L [place] # 0.50 LAB EO #(LOINC) 0.00 - 0.50 x10EE3/U L EO # 0.00 LAB Baso #(LOINC) 0.00 - 0.10 x10EE3/U L Baso # 0.00 LAB MANUAL DIFF(LOINC) MANUAL DIFF N/A LAB MORPHOLOGY(LOINC ) MORPHOLOGY N/A Result Comment: {CD] Performed By: #### [id number] #### [facility],[address] [place] [address] BMP WITH EGFR Collected: 02/20/2018 Status: F Source: [facility] 4:40 AM [facility] REPOSITORY TYPE CODE TESTS RESULT OUT OF RANGE REFERENCE UNITS LAB BMP with eGFR(LOINC) BMP with eGFR Result Comment: BASIC METABOLIC PANEL LAB SODIUM(LOINC) 136 - 145 mmol/l SODIUM 138 LAB POTASSIUM(LOINC) 3.5 - 5.1 mmol/L Low POTASSIUM 3.2 LAB CHLORIDE(LOINC) 98 - 107 mmol/L CHLORIDE 100 LAB CO2(LOINC) 21.0 - mmol/L 31.0 CO2 28.7 LAB GLUCOSE(LOINC) 74 - 106 mg/dl GLUCOSE High 163 LAB BUN(LOINC) 6 - 20 mg/dl BUN 11 LAB CREATININE(LOINC) 0.6 - 1.2 mg/dl CREATININE 0.7 LAB CALCIUM(LOINC) 8.6 - mg/dl 10.2 CALCIUM 9.4 LAB ANION GAP(LOINC) 10 - 20 mmol/L ANION GAP 13 LAB AGE(LOINC) years AGE 67 LAB eGFR(LOINC) 60 - 999 ML/MINUTE eGFR >60 LAB eGFR(AA)(LOINC) 60 - 999 ML/MINUTE eGFR(AA) >60 Result Comment: ACCORDING TO THE NATIONAL KIDNEY DISEASE EDUCATION PROGRAM(NKDE), A NORMAL eGFR IS A VALUE GREATER THAN OR EQUAL TO 60 ML/MIN/1.73 SQ METERS. CHRONIC KIDNEY DISEASE: <60mL/MIN/1.73 SQ METERS KIDNEY FAILURE: <15mL/MIN/1.73 SQ METERS THIS TEST SHOULD ONLY BE USED FOR PATIENTS 18 YEARS OF AGE AND OLDER. Performed By: #### [id number] #### [facility],[address] [place] [address] CBC Collected: 02/19/2018 Status: F Source: [facility] 5:11 AM [facility] REPOSITORY TYPE CODE TESTS RESULT OUT OF RANGE REFERENCE UNITS LAB CBC(LOINC) CBC Result Comment: CBC-COMPLETE BLOOD COUNT LAB WBC(LOINC) 4.5 - 10.8 x 10EE3/UL WBC High 14.3 LAB RBC(LOINC) 4.10 - x 10EE6/UL 5.30 RBC Low 3.93 LAB HEMOGLOBIN(LOINC 12.0 - g/dl ) 16.0 HEMOGLOBIN 12.2 LAB HEMATOCRIT(LOINC 34.0 - % ) 46.0 HEMATOCRIT 36.1 LAB MCV(LOINC) 80 - 99 fl MCV 92 LAB MCH(LOINC) 27 - 33 pg MCH 31 LAB MCHC(LOINC) 32 - 36 X10 3 MCHC 34 LAB RDW/CV(LOINC) 12.0 - % 15.6 RDW/CV 14.0 LAB PLATELET(LOINC) 150 - 450 x10EE3/UL PLATELET 330 LAB MPV(LOINC) 6.6 - 10.5 fl MPV 7.7 Result Comment: AUTOMATED DIFFERENTIAL LAB NEUT %(LOINC) 46.0 - 76.0 % NEUT % High 90.2 LAB LYMPH %(LOINC) 20.0 - 45.0 % Low LYMPH % 5.7 LAB MONOS %(LOINC) 0.0 - 10.0 % MONOS % 3.9 LAB EO %(LOINC) 0.0 - 7.0 % EO % 0.0 LAB BASO %(LOINC) 0.0 - 2.0 % BASO % 0.2 LAB Lymph #(LOINC) 0.80 - 2.80 x10EE3/U L Lymph # 0.80 LAB Neut #(LOINC) 1.50 - 7.10 x10EE3/U L Neut # High 12.90 LAB [place] #(LOINC) 0.20 - 1.00 x10EE3/U L [place] # 0.60 LAB EO #(LOINC) 0.00 - 0.50 x10EE3/U L EO # 0.00 LAB Baso #(LOINC) 0.00 - 0.10 x10EE3/U L Baso # 0.00 LAB MANUAL DIFF(LOINC) MANUAL DIFF N/A LAB MORPHOLOGY(INC ) MORPHOLOGY N/A Result Comment: {CD] Performed By: #### [id number] #### [facility],[address] [place] [address] BMP WITH EGFR Collected: 02/19/2018 Status: F Source: [facility] 5:11 AM [facility] REPOSITORY TYPE CODE TESTS RESULT OUT OF RANGE REFERENCE UNITS LAB BMP with eGFR(LOINC) BMP with eGFR Result Comment: BASIC METABOLIC PANEL LAB SODIUM(LOINC) 136 - 145 mmol/l SODIUM 140 LAB POTASSIUM(LOINC) 3.5 - 5.1 mmol/L POTASSIUM 3.8 LAB CHLORIDE(LOINC) 98 - 107 mmol/L CHLORIDE 107 LAB CO2(LOINC) 21.0 - mmol/L 31.0 CO2 26.7 LAB GLUCOSE(LOINC) 74 - 106 mg/dl GLUCOSE High 148 LAB BUN(LOINC) 6 - 20 mg/dl BUN 8 LAB CREATININE(LOINC) 0.6 - 1.2 mg/dl CREATININE 0.6 LAB CALCIUM(LOINC) 8.6 - mg/dl 10.2 CALCIUM 9.0 LAB ANION GAP(LOINC) 10 - 20 mmol/L ANION GAP 10 LAB AGE(LOINC) years AGE 67 LAB eGFR(LOINC) 60 - 999 ML/MINUTE eGFR >60 LAB eGFR(AA)(LOINC) 60 - 999 ML/MINUTE eGFR(AA) >60 Result Comment: ACCORDING TO THE NATIONAL KIDNEY DISEASE EDUCATION PROGRAM(NKDE), A NORMAL eGFR IS A VALUE GREATER THAN OR EQUAL TO 60 ML/MIN/1.73 SQ METERS. CHRONIC KIDNEY DISEASE: <60mL/MIN/1.73 SQ METERS KIDNEY FAILURE: <15mL/MIN/1.73 SQ METERS THIS TEST SHOULD ONLY BE USED FOR PATIENTS 18 YEARS OF AGE AND OLDER. Performed By: #### [id number] #### [facility],[address] [place] [address] CBC Collected: 02/18/2018 Status: F Source: [facility] 5:40 AM [facility] REPOSITORY TYPE CODE TESTS RESULT OUT OF RANGE REFERENCE UNITS LAB CBC(LOINC) CBC Result Comment: CBC-COMPLETE BLOOD COUNT LAB WBC(LOINC) 4.5 - 10.8 x 10EE3/UL WBC 9.1 LAB RBC(LOINC) 4.10 - x 10EE6/UL 5.30 RBC 4.22 LAB HEMOGLOBIN(LOINC) 12.0 - g/dl 16.0 HEMOGLOBIN 13.2 LAB HEMATOCRIT(LOINC) 34.0 - % 46.0 HEMATOCRIT 38.5 LAB MCV(LOINC) 80 - 99 fl MCV 91 LAB MCH(LOINC) 27 - 33 pg MCH 31 LAB MCHC(LOINC) 32 - 36 X10 3 MCHC 34 LAB RDW/CV(LOINC) 12.0 - % 15.6 RDW/CV 14.1 LAB PLATELET(LOINC) 150 - 450 x10EE3/UL PLATELET 301 LAB MPV(LOINC) 6.6 - 10.5 fl MPV 7.9 Result Comment: AUTOMATED DIFFERENTIAL LAB NEUT %(LOINC) 46.0 - 76.0 % NEUT % High 87.8 LAB LYMPH %(LOINC) 20.0 - 45.0 % Low LYMPH % 8.7 LAB MONOS %(LOINC) 0.0 - 10.0 % MONOS % 3.0 LAB EO %(LOINC) 0.0 - 7.0 % EO % 0.0 LAB BASO %(LOINC) 0.0 - 2.0 % BASO % 0.5 LAB Lymph #(LOINC) 0.80 - 2.80 x10EE3/U L Lymph # 0.80 LAB Neut #(LOINC) 1.50 - 7.10 x10EE3/U L Neut # High 8.00 LAB [place] #(LOINC) 0.20 - 1.00 x10EE3/U L [place] # 0.30 LAB EO #(LOINC) 0.00 - 0.50 x10EE3/U L EO # 0.00 LAB Baso #(LOINC) 0.00 - 0.10 x10EE3/U L Baso # 0.00 LAB MANUAL DIFF(LOINC) MANUAL DIFF N/A LAB MORPHOLOGY(LOINC ) MORPHOLOGY N/A Result Comment: {CD] Performed By: #### [id number] #### [facility],[address] [place] [address] BMP WITH EGFR Collected: 02/18/2018 Status: F Source: [facility] 5:40 AM [facility] REPOSITORY TYPE CODE TESTS RESULT OUT OF RANGE REFERENCE UNITS LAB BMP with eGFR(LOINC) BMP with eGFR Result Comment: BASIC METABOLIC PANEL LAB SODIUM(LOINC) 136 - 145 mmol/l SODIUM 139 LAB POTASSIUM(LOINC) 3.5 - 5.1 mmol/L POTASSIUM 3.6 LAB CHLORIDE(LOINC) 98 - 107 mmol/L CHLORIDE 106 LAB CO2(LOINC) 21.0 - mmol/L 31.0 CO2 23.3 LAB GLUCOSE(LOINC) 74 - 106 mg/dl GLUCOSE High 158 LAB BUN(LOINC) 6 - 20 mg/dl BUN 8 LAB CREATININE(LOINC) 0.6 - 1.2 mg/dl CREATININE 0.6 LAB CALCIUM(LOINC) 8.6 - mg/dl 10.2 CALCIUM 9.4 LAB ANION GAP(LOINC) 10 - 20 mmol/L ANION GAP 13 LAB AGE(LOINC) years AGE 67 LAB eGFR(LOINC) 60 - 999 ML/MINUTE eGFR 99 LAB eGFR(AA)(LOINC) 60 - 999 ML/MINUTE eGFR(AA) 120 Result Comment: ACCORDING TO THE NATIONAL KIDNEY DISEASE EDUCATION PROGRAM(NKDE), A NORMAL eGFR IS A VALUE GREATER THAN OR EQUAL TO 60 ML/MIN/1.73 SQ METERS. CHRONIC KIDNEY DISEASE: <60mL/MIN/1.73 SQ METERS KIDNEY FAILURE: <15mL/MIN/1.73 SQ METERS THIS TEST SHOULD ONLY BE USED FOR PATIENTS 18 YEARS OF AGE AND OLDER. Performed By: #### [id number] #### [facility],[address] [place] [address] [id number] CHEST 2 VIEWS Observed: 02/17/2018 Status: F Source: [facility] 11:03 AM [facility] REPOSITORY [address] [address] Patient: ASHLEY MARIE Phone#: : 1950 Age: 67 Gender: F Pt. Type: ER Account: [id number] Location: [id number] Ordering: SARAH DANIEL Exam Date: 02/17/2018/10:30 Family Phys: MINORKIMBERLYYAMILEX ALDALIS Charge Code: [id number] Physician: Curry Order #: [id number] DLP Dose#: PROCEDURE: X-RAY CHEST 2 VIEWS COMPARISON: [facility], CT, CHEST PE W CON, 12/19/2016, 18:49. [facility], XR, CHEST PA/LAT, 08/28/2016, 14:06. [facility], XR, CHEST PA/LAT, 12/19/2016, 16:20. INDICATIONS: COPD FINDINGS: LUNGS: Density in the right lateral lung base may represent scarring, or recurrent focal airspace disease. VASCULATURE: Normal. Unremarkable pulmonary vasculature. CARDIAC: Normal. No cardiac silhouette abnormality or cardiomegaly. MEDIASTINUM: Normal. No visible mass or adenopathy. PLEURA: Persistent blunting of the right costophrenic angle. Interval clearing of pleural effusion or atelectasis in the posterior sulcus. BONES: Normal. No fracture or visible bony lesion. OTHER: Negative. CONCLUSION: 1. Persistent density in the right lateral lung base. This may represent scarring, residual or recurrent infiltrate. Recommend follow up chest x-ray when the patient's symptoms have resolved to assess for interval clearing as recommended on comparison chest CT. Dictated by: Tea Oneill MD on 02/17/2018 at 11:19 Approved by: Tea Oneill MD on 02/17/2018 at 11:19 CBC Collected: 02/17/2018 Status: F [facility]: [facility] 10:45 AM [facility] REPOSITORY TYPE CODE TESTS RESULT OUT OF RANGE REFERENCE UNITS LAB CBC(LOINC) CBC Result Comment: CBC-COMPLETE BLOOD COUNT LAB WBC(LOINC) 4.5 - 10.8 x 10EE3/UL WBC High 11.1 LAB RBC(LOINC) 4.10 - x 10EE6/UL 5.30 RBC 4.35 LAB HEMOGLOBIN(LOINC 12.0 - g/dl ) 16.0 HEMOGLOBIN 13.4 LAB HEMATOCRIT(LOINC 34.0 - % ) 46.0 HEMATOCRIT 39.3 LAB MCV(LOINC) 80 - 99 fl MCV 90 LAB MCH(LOINC) 27 - 33 pg MCH 31 LAB MCHC(LOINC) 32 - 36 X10 3 MCHC 34 LAB RDW/CV(LOINC) 12.0 - % 15.6 RDW/CV 13.6 LAB PLATELET(LOINC) 150 - 450 x10EE3/UL PLATELET 311 LAB MPV(LOINC) 6.6 - 10.5 fl MPV 7.6 Result Comment: AUTOMATED DIFFERENTIAL LAB NEUT %(LOINC) 46.0 - 76.0 % NEUT % 72.7 LAB LYMPH %(LOINC) 20.0 - 45.0 % Low LYMPH % 15.1 LAB MONOS %(LOINC) 0.0 - 10.0 % MONOS % High 10.3 LAB EO %(LOINC) 0.0 - 7.0 % EO % 1.0 LAB BASO %(LOINC) 0.0 - 2.0 % BASO % 0.9 LAB Lymph #(LOINC) 0.80 - 2.80 x10EE3/U L Lymph # 1.70 LAB Neut #(LOINC) 1.50 - 7.10 x10EE3/U L Neut # High 8.00 LAB [place] #(LOINC) 0.20 - 1.00 x10EE3/U L [place] # High 1.10 LAB EO #(LOINC) 0.00 - 0.50 x10EE3/U L EO # 0.10 LAB Baso #(LOINC) 0.00 - 0.10 x10EE3/U L Baso # 0.10 LAB MANUAL DIFF(LOINC) MANUAL DIFF N/A LAB MORPHOLOGY(LOINC ) MORPHOLOGY N/A Result Comment: {CD] Performed By: #### [id number] #### [facility],[address] [place] [address] LACTATE Collected: 02/17/2018 Status: F Source: [facility] 10:45 AM [facility] REPOSITORY TYPE CODE TESTS RESULT OUT OF REFERENCE UNITS RANGE LAB LACTATE(CARISA 4.5 - 18.0 mg/dL NC) LACTATE 11.0 Performed By: #### [id number] #### [facility],[address] [facility] [id number] CMP WITH EGFR Collected: 02/17/2018 Status: F Source: [facility] 10:45 AM [facility] REPOSITORY TYPE CODE TESTS RESULT OUT OF RANGE REFERENCE UNITS LAB CMP with eGFR(LOINC) CMP with eGFR Result Comment: COMPREHENSIVE METABOLIC PANEL LAB SODIUM(LOINC) 136 - 145 mmol/l SODIUM 139 LAB POTASSIUM(LOINC) 3.5 - 5.1 mmol/L Low POTASSIUM 3.4 LAB CHLORIDE(LOINC) 98 - 107 mmol/L CHLORIDE 102 LAB CO2(LOINC) 21.0 - mmol/L 31.0 CO2 29.7 LAB GLUCOSE(LOINC) 74 - 106 mg/dl GLUCOSE 97 LAB BUN(LOINC) 6 - 20 mg/dl BUN 12 LAB CREATININE(LOINC) 0.6 - 1.2 mg/dl CREATININE 0.7 LAB AST/SGOT(LOINC) 13 - 39 U/L AST/SGOT 15 LAB ALK PHOS(LOINC) 38 - 126 U/L ALK PHOS 52 LAB CALCIUM(LOINC) 8.6 - mg/dl 10.2 CALCIUM 9.3 LAB TOTAL PROTEIN(LOINC) 6.4 - 8.3 g/dl TOTAL PROTEIN 6.5 LAB ALBUMIN(LOINC) 3.4 - 4.8 g/dL ALBUMIN 3.9 LAB GLOBULIN(LOINC) 1.5 - 3.8 G/DL GLOBULIN 2.6 LAB A/G RATIO(LOINC) 0.9 - 1.6 A/G RATIO 1.5 LAB TOTAL BILI(LOINC) 0.0 - 1.5 mg/dl TOTAL BILI 0.4 LAB B/C RATIO(LOINC) 0 - 30 ratio B/C RATIO 17 LAB ALT/SGPT(LOINC) 8 - 35 U/L ALT/SGPT 15 LAB ANION GAP(LOINC) 10 - 20 mmol/L ANION GAP 11 LAB AGE(LOINC) years AGE 67 LAB eGFR(LOINC) 60 - 999 ML/MINUTE eGFR >60 LAB eGFR(AA)(LOINC) 60 - 999 ML/MINUTE eGFR(AA) >60 Result Comment: ACCORDING TO THE NATIONAL KIDNEY DISEASE EDUCATION PROGRAM(NKDE), A NORMAL eGFR IS A VALUE GREATER THAN OR EQUAL TO 60 ML/MIN/1.73 SQ METERS. CHRONIC KIDNEY DISEASE: <60mL/MIN/1.73 SQ METERS KIDNEY FAILURE: <15mL/MIN/1.73 SQ METERS THIS TEST SHOULD ONLY BE USED FOR PATIENTS 18 YEARS OF AGE AND OLDER. Performed By: #### [id number] #### [address] [address] TROPONIN Collected: 02/17/2018 Status: F Source: [facility] 10:45 [facility] TYPE CODE TESTS RESULT OUT OF REFERENCE UNITS RANGE LAB TROPONIN 0.00 - 0.05 ng/ml I(LOINC) TROPONIN I 0.01 Result Comment: Elevated troponin (above the 99th percentile) usually indicates myocardial ischemia. Results must be interpreted within the clinical setting. 1.Non-ischemic pathology can also cause elevated troponin levels (e.g., acute pulmonary embolism, myocarditis, pericarditis, heart failure, intracranial injury, rhabdomyolisis, sepsis, shock and renal insufficiency). 2.Approximately 1% of healthy adults have elevated troponin levels. 3.Analytical false positive results rarely occur(due to multiple interferences such as heterophile antibodies). Performed By: #### [id number] #### [address] [address] Observed: 02/17/2018 Status: F Source: [facility] CULTURE BLOOD 10:45 [facility] REPOSITORY CULTURE BLOOD _BLOOD CULTURE_ SET: 1 of 2 24HOUR REPORT NO GROWTH 48HOUR REPORT NO GROWTH 72HOUR REPORT NO GROWTH M I C R O B I O L O G Y R E P O R T FINAL Antimicrobial Susceptibility and Organism Identification Report Specimen Number : [id number] Requested : 02/17/18 Specimen Source : BLOOD Collected : 02/17/18 10:45 [facility] : Emergency Room Received : 02/17/18 10:45 Requesting Physician : FREDY Patient/Specimen Tests and Comments Specimen Comments FINAL REPORT: No Growth at 5 Days Tech : Source : BLOOD ID # : [id number] FINAL Report Date : / / : Collected : 02/17/18 10:45 02/22/18.1259.CARLOSO. 02/22/18.1259.BKO.COMPLETE Performed By: #### [id number] #### [facility],[address] [place], [place] [id number] Observed: 02/17/2018 Status: F Source: TOMAS VELIZ CULTURE BLOOD 10:45 AM [facility] REPOSITORY CULTURE BLOOD _BLOOD CULTURE_ SET: 2 of 2 24HOUR REPORT NO GROWTH 48HOUR REPORT NO GROWTH 72HOUR REPORT NO GROWTH M I C R O B I O L O G Y R E P O R T FINAL Antimicrobial Susceptibility and Organism Identification Report Specimen Number : [id number] Requested : 02/17/18 Specimen Source : BLOOD Collected : 02/17/18 10:45 [facility] : Med/Surg Received : 02/17/18 10:45 Requesting Physician : FREDY Patient/Specimen Tests and Comments Specimen Comments FINAL REPORT: No Growth at 5 Days Tech : Source : BLOOD ID # : [id number] FINAL Report Date : / / : Collected : 02/17/18 10:45 02/22/18.1259.BKO. 02/22/18.1258.BKO.COMPLETE Performed By: #### [id number] #### [place] [id number] ARTERIAL BLOOD GAS Collected: 02/17/2018 Status: F Source: [facility]EL[facility] ANALYSIS 10:35 AM [facility] REPOSITORY TYPE CODE TESTS RESULT OUT OF REFERENCE UNITS RANGE LAB ARTERIAL BLOOD GAS ANALYSIS(LOINC ) ARTERIAL BLOOD GAS ANALYSIS Result Comment: ARTERIAL BLOOD GAS LAB pH(LOINC) 7.35 - 7.45 High 7.46 pH LAB PCO2(LOINC) 35 - 45 mm Hg 39 PCO2 LAB PO2(LOINC) 80 - 105 mm Hg 87 PO2 LAB HCO3(LOINC) 20 - 24 mmol/L High 27 HCO3 LAB BE(LOINC) -2 - 3 High 4 BE LAB SaO2(LOINC) 95 - 98 96 SaO2 Result Comment: TIME RESULT CALLED _1057 02/17/18.1056.ZSK. { FIO2/LPM 2LPM LAB MODALITY(LOINC) MODALITY NC LAB SPO2(LOINC) SPO2 95 LAB TOTAL RR(LOINC) TOTAL RR 22 LAB PULSE(LOINC) PULSE 89 LAB SAMPLE SITE(LOINC) SAMPLE SITE LT BRACH LAB VENT(LOINC) VENT N/A LAB ALLENS TEST(LOINC) ALLENS TEST NA Result Comment: { TIME CALLED 1057 Performed By: #### [id number] #### [place] [id number] ALLERGIES ALLERGIES DATE TYPE / CODE NAME / CODE REACTION SEVERITY SOURCE Drug CODEINE/000 VOMITING Moderate Tomas Veliz Allergy/326454904(S 30143(RXNOR ([facility]) M) Modifier) Hospital (Qualifier Repository Value) Environmental LATEX HIVES Moderate Tomas Pomerene Allergy/407642655(S (S[facility]) Modifier) Hospital (Qualifier Repository Value) Drug CODEINE/000 Moderate Tomas Pomerene Allergy/200511878(S 32939(RXNOR ([facility]) M) Modifier) Hospital (Qualifier Repository Value) Environmental LATEX Moderate Tomas Pome[place] Allergy/332749368(S (S[facility]) Modifier) Hospital (Qualifier Repository Value) ENCOUNTERS ENCOUNTERS ADMIT/DISCHARGE ACCOUNT ADMITTING ENCOUNTER LOCATION SOURCE NUMBER CLASS 12/21/2018 [id number] Ambulatory [facility] 4 [facility] ing:MRI Repository 12/14/2018 [id number] [facility] 2 [facility] ing:LAB Repository 12/05/2018 [id number] [facility] 7 [facility] ing:MRI Repository 09/15/2018/ [id number] [facility] Tomas Pomerene 8 [facility] Repository 09/12/2018 [id number] 09/12/2018 [id number] [facility] Repository 08/16/2018 [id number] KAVITA IVEY Ambulatory [facility] Repository 08/01/2018/ [id number] KAVITA IVEY Inpatient BuildinR Tomas Diaz MD Encounter oom: 301OV [facility] Repository 04/13/2018/ [id number] THERON, Ambulatory BuildinR Tomas [facility] oom: AMB10 [facility] Repository 02/17/2018/ [id number] KAVITA IVEY Inpatient BuildinR Tomas Diaz MD Encounter oom: 304 [facility] Repository 02/06/2018/ [id number] THERON, Ambulatory Tomas [address] Repository PAYERS PAYERS ENCOUNTER GUARANTOR PAYER SUBSCRIBER SOURCE 12/21/2018 ASHLEY COX: Shalini [id number] TR Insurance:HUMANA [id number] [place] [facility] [address]Ovp: (702) Number: Repository [phone] () [id number] Date:4800-19-58HC [address] [address]PU: 12/21/2018 Secondary NOT GIVENUNK Shalini Insurance:SELF PAY [facility] Number: Effective Repository Date:2018-12-18 12/14/2018 ASHLEY D Primary ASHLEY D ROCKDOB: [place] [id number] TR Insurance:HUMANA [id number] [place] [facility] [address]Rov: (702) Number: Repository [phone] () [id number] Date:[id number] [address]ME: 12/14/2018 Secondary NOT GIVENUNK [place] Insurance:SELF PAY [facility] Number: Effective Repository Date:2018-12-14 12/05/2018 ASHLEY D Primary ASHLEY D ROCKDOB: [place] [id number] TR Insurance:HUMANA [id number] [place] [facility] [address]Xig: (702) Number: Repository [phone] () [id number] Date:[id number] [address] [address]ZX: 12/05/2018 Secondary NOT GIVENUNK Shalini Insurance:SELF PAY [facility] Number: Effective Repository Date:2018-11-29 09/15/2018 ASHLEY D Primary ASHLEY D ROCKDOB: Tomas Veliz ROCKDOB: Insurance:HUMANA [id number] [facility] MEDICARE [address] [facility] [place], ADVANTAGE[place] [address]Nrv: Number: [id number] [id number] () Date:5413-18-50Oolp Name: 09/12/2018 ASHLEY D Primary ASHLEY D ROCKDOB: Tomas Veliz ROCKDOB: Insurance:HUMANA [id number] [facility] CLAIMS/MEDICARE [address] [place] [address], [address] [place]ository [place] [address]Rsb: Number: [phone] [id number] (HP) Date:7206-87-72Pdfq Name: 09/12/2018 ASHLEY ROCKDOB: Primary ASHLEY ROCKDOB: Tomas Veliz Insurance:HUMANA [id number] [place] [address], MEDICARE [address] [place] [address]Vta: [address] Repository Number: [phone] () [id number] Date:6856-28-50Ikgq Name: 09/12/2018 Secondary ASHLEY ROCKDOB: Tomas Veliz Insurance:MEDICAREPoli [id number] [facility] cy Number: [address] [place] [id number] [place] [address] Repository Date:2014-08-28 [id number] 08/16/2018 ASHLEY ROCKDOB: Primary Insurance:S ASHLEY D ROCKDOB: T[place] Veliz - [id number] [address], MEDICARE-PRIMARYPol[address] [place] [address]Atx: Number: [place] Repository [id number] (HP) Date:4563-70-58Fmks Name: 08/01/2018 ASHLEY ROCKDOB: Primary ASHLEY ROCKDOB: Tomas Veliz Insurance:HUMANA [id number] [place] [address], MEDICARE ADVANTAGE [address] [place] [address] [place] [address]Hta: INPATIENTPol[address] Repository Number: [phone] () [id number] Date:Plan Name: 04/13/2018 ASHLEY ROCKDOB: Primary ASHLEY D ROCKDOB: Tomas Veliz Insurance:HUMANA [id number] [place] [address], MEDICARE [address] [place] [address]Vel: ADVANTAGE[address] Repository Number: [phone] () [id number] Date:6494-80-13Ovyv Name: 02/17/2018 ASHLEY ROCKDOB: Primary ASHLEY ROCKDOB: Tomas Veliz Insurance:HUMANA [id number] [place] [address], MEDICARE ADVANTAGE [address] [place] [address]Uhg: [address] Repository Number: [phone] () [id number] Date:Plan Name: 02/06/2018 ASHLEY MARIEDOB: Primary ASHLEY D ROCKDOB: Tomas Veliz Insurance:MEDICARE [id number] [place] [address] Number: [place] Repository [address]Fkw: [phone] [id number] [phone] () Date:Plan Name:
== END ==
PROVIDERS: Family Provider Internal Medicine Infectious Disease; PCP Internal Medicine Infectious Disease; Referring Provider Psychiatry & Neurology Neurology; Visit Provider Psychiatry & Neurology Neurology
DX: R41.3 Other amnesia (principal)
CPT/HCPCS: 36415; 82607; 84443

== ENCOUNTER → 2018-12-21 10:42 | Outpatient (CLI) | payer MEDICARE, SELFPAY ==
--- NOTE | 2018-12-21 11:08 | MRI_ITS ---
STUDY: MRI BRAIN WITHOUT CONTRAST REASON FOR EXAM: Female, 68 years old. memory loss, RT SIDED WEAKNESS. TECHNIQUE: Standardized multiplanar fat and water weighted pulse sequences were obtained. COMPARISON: None. FINDINGS: There is mild cerebral atrophy with widening of the extra-axial spaces and ventricular dilatation. There are multiple white matter hyperintensities, distributed throughout the deep white matter tracts of the cerebral hemispheres, consistent with moderate chronic white matter ischemic changes. There are prominent perivascular spaces (PVS) involving the basal ganglia. Normal thalami. There is no extra-axial fluid accumulation. Normal flow voids within the major intracranial circulation suggesting patency by spin echo criteria. Normal sella turcica, pituitary gland, infundibular stalk, optic chiasm and hypothalamus. Normal tectal plate and pineal gland. Normal midbrain, steph and medulla. Normal cerebellum. Normal basal cisterns. Normal bilateral temporal bones. Normal bilateral internal auditory canals. MRI/Brain without Contrast IMPRESSION: No acute intracranial abnormality. Moderate chronic microvascular ischemic changes Electronically Signed: Flynn Pham MD at 12:31 EST Tel , Service support ,
== END ==
LOC: MRI 10:47
PROVIDERS: Family Provider Internal Medicine Infectious Disease; PCP Internal Medicine Infectious Disease; Referring Provider Psychiatry & Neurology Neurology; Visit Provider Psychiatry & Neurology Neurology
DX: R41.3 Other amnesia (principal)
CPT/HCPCS: 70551

== ENCOUNTER → 2019-01-15 15:53 | Outpatient (CLI) | payer MEDICARE, SELFPAY ==
--- NOTE | 2019-01-15 12:52 | PCM.HP.BLA ---
History and Physical DATE OF SURGERY: 01/24/2019 SCHEDULED PROCEDURE: Right total hip arthroplasty HISTORY OF PRESENT ILLNESS: This is a 68-year-old female who has been having ongoing pain in her right hip since June 2018. Patient denies any trauma or injury. Her pain with activity can reach as high as a 10/10. Patient's pain as being constant, aching, stabbing. She has increased pain going up and down stairs, sitting, and bending. Patient states she has had to move her bedroom to the first floor due to the pain associated with going up and down stairs. She does complain of right groin pain and lateral hip pain. She has also complained of low back pain. Pain does awaken her at night. Patient states she has difficult times with activities of daily living including bathing and showering, getting dressed, housework, shopping, and gardening. Patient has stumbled secondary to her right hip pain. Patient does feel unsafe showering due to the right hip. Patient has tried conservative measures consisting of rest, ice, heat, elevation with only minimal relief. She has been through physical therapy for her low back and hip with no relief in symptoms. She has been doing daily home exercises. Patient has tried oral medications consisting of tramadol as well as Tylenol. Patient has also undergone an MRI of the right hip which does reveal cartilage thinning with bone [place] edema in the femoral head consistent with degenerative changes and early avascular necrosis. Patient has a medical history pertinent for emphysema/chronic COPD as well as hypertension and previous cancer of the long. Patient had a right lower lobe lobectomy in 2007. She states since then she has required 2 L of oxygen periodically throughout the day. Patient does see primary care physician Dr. Dumont who has given patient clearance for surgery. Patient currently denies chest pain, fevers chills, recent infections. She does have occasional shortness of breath. After failing conservative measures and discussing treatment options with Dr. Noah Kingsley, the patient would like to proceed with a right total hip arthroplasty. REVIEW OF SYSTEMS: ROS: Const: Reports change in appetite and weight changeDenies change in appetite, fever,or weight change. CV: Reports heart murmur, but denies chest pain and irregular heartbeat. Resp: Reports cough, pneumonia, SOB and wheezing, but denies tuberculosis. GI: Reports constipation and heartburn, but denies diarrhea, difficulty swallowing, nausea, bloody stools and vomiting. : Urinary: denies incontinence. Musculo: Reports limp and trouble walking, but denies leg swelling and weakness. Skin: Reports tattoo, but denies Raynaud's and history of shingles. Neuro: Denies ambulatory dysfunction, dizziness, numbness/tingling and tremor. Psych: Reports insomnia, but denies anxiety and stress. Jaret/Lymph: Reports bleeding/bruising tendency, but denies anemia and past transfusion. Reviewed, no changes. PAST MEDICAL HISTORY: Advance Care Plan: No Advance Directives Effective Date: 11/27/2018 PMH: Medical Problems: Arthritis, Emphysema, High Blood Pressure, Hypercholesterolemia, Osteoporosis Accidents: RT Ankle/LT Shouler Injury - (11/19/2016) FELL ON ICE Surgical Hx: Section - 3 RT Ankle Surgery, RT Lobectomy Maxilary Bone LT Shoulder Arthroscopy - (1992) Anesthesia Complications: Trouble Waking, Potassium Problem Assistive Devices: Glasses, Dentures Reviewed and updated. SOCIAL HISTORY: SH: Marital: .Occupation: Disabled - (2012) Retired.Work Status: Retired.Hand Dominance: Right-handed. Personal Habits: Cigarette Use: Former.Alcohol: Occasionally.Drug Use: Denies Use.Enjoy Exercising: Never Exercises. Reviewed, no changes. VITALS: Ht: 63 Wt: 157lb Wt k.215 BMI: 27.8 BP: 140/80 Pulse: 82 Resp: 24 T: 98.8 T: 37.1C ALLERGIES: Codeine Latex MEDICATIONS: Meloxicam 7.5 mg 1 by mouth twice a day, Amlodipine Besylate 5 mg 1 by mouth every day, Losartan Potassium 50 mg one PO daily, Lovastatin 20 mg one PO qhs, Alprazolam 0.5 mg 1 by mouth every day, Tramadol HCL 50 mg 1-2 by mouth every 6 hours as needed pain, Citalopram Hydrobromide 20 mg 1 by mouth every day, Vitamin B12 90 mcg prn, Ibuprofen 200 800 mg prn, Albuterol Mdi 90 mcg/Act 2-3 puffs every 6 hours as needed, Ventolin HFA 108 (90 Base) mcg/Act prn, Oxygen prn PRE-OP EXAM: General appearance:NORMAL Other: Eyes: Conjunctivae and lids: NORMAL Pupils: ERR Ears, Nose, Mouth, and Throat: NORMAL Other: Inspection of lips, teeth and gums: NORMAL Other: Neck: Examination of neck: no masses noted. Respiratory: Assessment of respiratory effort: NORMAL Other: Auscultation of lungs: clear to auscultation no wheezes, rhonchi or rales. Cardiovascular: Auscultation of heart: regular rate and rhythm, no murmurs, gallops or rubs. Exam of carotid arteries: NORMAL Other: Gastrointestinal: Exam of abdomen: soft, nontender, nondistended bowel sounds present. PHYSICAL EXAMINATION: Patient does walk with an antalgic gait. Right hip flexion 80, internal rotation 5, external rotation 15. Pain is reproduced with internal rotation and flexion. Sensation intact to light touch to saphenous, sural, superficial/deep peroneal, and tibial distribution. Neurovascularly intact. IMAGING STUDIES: X-rays of the right hip reveal mild joint space narrowing with osteophyte formation in the hip joint. There is a lucent area in the weightbearing surface of the femoral head concerning for femoral head collapse. MRI of the right hip reveals cartilage thinning in the anterior/superior portion of the hip and bone posterior edema in the anterior/superior femoral head consistent with degenerative changes and early avascular necrosis. IMPRESSION: 1. Right hip osteoarthritis 2. Hypertension 3. Hypercholesterolemia 3. COPD/emphysema 4. Osteoporosis 5. History of lung cancer 2007 with right lower lobe lobectomy: does require home oxygen PLAN: Dr. Noah Kingsley did discuss and review with the patient all treatment options including surgical versus nonsurgical options. Patient does wish to proceed with the above-stated procedure. Potential risks, benefits, and complications of the procedure were discussed in detail including but not limited to , infection, nerve and blood vessel damage, persistent pain, numbness, tingling, paresthesias, blood clot, pulmonary embolism, and requirement for possible further surgery. The patient expressed full understanding and has no further questions for the doctor. Patient does agree to proceed with the above-stated procedure and has signed the surgery consent form. This dictation was created using voice recognition software. Phonetic and/or grammatical errors may exist.. ___ I have re-examined the patient. There are no clinical changes since date of exam. ___ See progress notes for changes. ___ Dictated on admission Date: Time: Signature:
[2019-01-15 13:19] VITALS: BP 132/81; PULSE 77; RESP 18; TEMP 37.5; O2SAT 93; BMI 29.5
--- NOTE | 2019-01-15 13:29 | SDCEKG_ITS ---
Test Reason : Blood Pressure : / mmHG Vent. Rate : 069 BPM Atrial Rate : 069 BPM P-R Int : 162 ms QRS Dur : 128 ms QT Int : 410 ms P-R-T Axes : 075 035 096 degrees QTc Int : 439 ms Normal sinus rhythm Left bundle branch block Abnormal ECG Confirmed by CHRISTO CHAUDHRY, DUANE ([id number]), advertising editor DINORAH MOURA ([id number]) on 01/16/2019 10:58:17 AM Referred By: Noah Kingsley Confirmed By:DUANE VILLAFUERTE MD
--- NOTE | 2019-01-15 14:05 | RAD_ITS ---
STUDY: X-RAY CHEST REASON FOR EXAM: Female, 68 years old. Shortness of breath/dyspnea. TECHNIQUE: PA and lateral views of the chest. COMPARISON: None. FINDINGS: Blunting of both costophrenic angles more prominent on the right side. Increased markings at the lung bases suggestive of linear atelectasis and/or scarring. Hyperinflation. Normal size heart. Normal mediastinum and selwyn. Normal visualized pulmonary arteries. There is atherosclerotic calcification of the aortic arch with tortuosity. There is demineralization of the osseous structures. Normal visualized ribs, clavicles, and shoulders. There is no demonstrated abnormality of the visualized soft tissue structures of the upper abdomen. RAD/Chest PA and Lateral IMPRESSION: Hyperinflation. Blunting of both costophrenic angles. Mild increased linear markings at the lung bases suggestive of linear atelectasis and/or scarring. Electronically Signed: Sin Hurtado MD at 14:32 EST , Service support ,
[2019-01-15 14:41] LABS: Absolute Lymphocyte Count 2.05 X10^3/ul (0.83-4.51); Absolute Neutrophil Count 3.9 X10^3/uL (2.0-7.7); Basophil# 0.04 X10^3/uL; Basophil% 0.6 % (0-1); Eosinophil# 0.21 X10^3/uL; Eosinophils% 3.1 % (0-5); Hematocrit 43.8 % (37-47); Hemoglobin 13.9 g/dl (12.0-15.0); Lymphocyte # 2.05 X10^3/ul (4.0); Mean Corp Hgb Conc 31.7 g/gl (32-36); Mean Corpuscular Hgb 29.4 pg (27.0-32.0); Mean Corpuscular Volume 92.8 fL (81-99); Monocyte# 0.64 X10^3/uL; Monocyte% 9.4 % (0-10); Neutrophil # 3.88 X10^3/uL (2.7-7.7); Neutrophil % 56.8 % (47-70); Platelet Count 303 K/mm3 (150-450); RBC Distribution Width CV 13.7 % (11.6-14.6); RBC Distribution Width SD 46.6 fl (35.1-43.9); Red Blood Count 4.72 M/mm3 (4.2-5.4); White Blood Count 6.8 K/mm3 (4.4-11.0)
[2019-01-15 14:42] LABS: Prothrombin Time (Protime)PT. 13.6 SECONDS (11.7-14.9)
[2019-01-15 14:54] LABS: POSITIVE COUNT NO; POSITIVE DIFFERENTIAL NO; POSITIVE MORPHOLOGY NO
[2019-01-15 15:02] LABS: AST(SGOT) 31 U/L (15-37); Alanine Aminotransfer ALT/SGPT 32 U/L (13-56); Alkaline Phosphatase 75 U/L (45-117); Anion Gap 4 (5-15); BUN 13 mg/dL (7-18); BUN/Creat Ratio 15.6 RATIO (10-20); Bilirubin, Direct 0.09 mg/dL (0.00-0.30); Calcium,Total 8.9 mg/dL (8.5-10.1); Chloride 107 mmol/L (98-107); Creatinine, Serum 0.83 mg/dL (0.55-1.02); EST Glomerular Filtration Rate 72 mL/min (>60); Est Glom Filt Rate - Afr Amer 87 mL/min (>60); Estimated Creatinine Clearance 50.59 ml/min; Globulin 3.2 g/dL (2.2-4.2); Glucose 89 mg/dL (74-106); Potassium 4.3 mmol/L (3.5-5.1); Protein, Total 7.2 g/dL (6.4-8.2); Sodium Level 140 mmol/L (136-145)
--- NOTE | 2019-01-17 15:25 | NURSING ---
TC to patient to invite to [employer] dinner and class tomorrow. no answer. Left message of time and date and my number to call if she would like to attend or has questions.
--- OUTSIDE RECORDS SUMMARY | 2019-04-02 20:22 | XMS RPT_ITS | CCD ---
:1950 External Reference #:[id number] Author Organization [employer] Care Team Providers Name Role Phone Unavailable Unavailable Unavailable Allergies Reported Allergen Reaction(s) Severity Date of Onset Location Codeine Moderate (Severity Tomas Pomerene Modifier) [facility] (Qualifier Value) Repository Latex Translations: Moderate (Severity Tomas Pomerene [ LATEX] Modifier) [facility] (Qualifier Value) Repository Problems Active Problems Category Problem Name Status Date Location Cancer of bronchus; Personal history of other Active 01-26-2019 - Tomas Junior lung malignant neoplasm of [facility] bronchus and lung [facility] (64766) Chronic obstructive Chronic obstructive Active 02-17-2018 - Tomas Junior pulmonary disease and pulmonary disease, [facility] bronchiectasis unspecified [facility] (36204) Essential hypertension Essential (primary) Active 08-16-[facility] (01331) Osteoarthritis Unilateral primary Active 01-02-2019 - Tomas Junior osteoarthritis, right hip [facility] (42252) Other nervous system Dysphasia Active 01-29-2019 - [facility] (40781) Other non-traumatic Effusion, right hip Active 01-02-2019 - Tomas Junior joint disorders [facility] (14257) Other screening for Abnormal electrocardiogram Active 01-26-2019 - Tomas Junior suspected conditions [ECG] [EKG] [facility] (not mental disorders [facility] (14264) or infectious disease) Residual codes; Localized edema Active 01-02-2019 - Tomas Taylorerene unclassified [facility] (43986) Residual codes; Localized edema Active 01-02-2019 - [facility] (25828) Residual codes; Localized edema Active 01-02-2019 - [facility]92137[facility] Past or Other Problems Category Problem Name Status Date Location Pneumonia (except that Pneumonia, Completed 02-17-2018 - Tomas Pomerene caused by tuberculosis unspecified organism [facility] or sexually transmitted (45128) disease) Results Result Name Value Range Unit Interpretation Flag Date Location cmp with egfr on 2018-08-02 Age Reported 67 years Normal 08-02-2018 [facility] (78078) Comment: Performed By: #### [id number] ####[facility],[address] [place] [address] 59391 Albumin mass conc 3.8 3.4 - 4.8 g/dL Normal 08-02-2018 [facility] (59506) Comment: Performed By: #### [id number] ####[facility],[address] [place] [address] 41971 Albumin/Globulin mass ratio 1.5 0.9 - 1.6 {ratio} Normal 08-02-2018 [facility] (17950) Comment: Performed By: #### [id number] ####[facility],[address] [place] [address] 42135 ALK PHOS 47 38 - 126 U/L Normal 08-02-2018 [facility] (45049) Comment: Performed By: #### [id number] ####[facility],[address] [place] [address] 09831 ALT/SGPT 12 8 - 35 U/L Normal 08-02-2018 [facility] (28005) Comment: Performed By: #### [id number] ####[facility],[address] [place] [address] 59458 Anion gap molar conc 14 10 - 20 mmol/L Normal 08-02-2018 [facility] (25017) Comment: Performed By: #### [id number] ####[facility],[address] [place] [address] 31611 AST/SGOT 12 13 - 39 U/L Low 08-02-2018 [facility] (79475) Comment: Performed By: #### [id number] ####[facility],[address] [place] [address] 84718 B/C RATIO 14 0 - 30 ratio Normal 08-02-2018 [facility] (58887) Comment: Performed By: #### [id number] ####[facility],[address] [place] [address] 47686 Bilirubin mass conc 0.3 0.0 - 1.5 mg/dl Normal 08-02-2018 [facility] (14969) Comment: Performed By: #### [id number] ####[facility],[address] [place] [address] 36550 Calcium mass conc 8.7 8.6 - 10.2 mg/dl Normal 08-02-2018 [facility] (45936) Comment: Performed By: #### [id number] ####[address] [address] Chloride molar conc 102 98 - 107 mmol/L Normal 08-02-2018 [facility] (71185) Comment: Performed By: #### [id number] ####[facility],[address] [place] [address] 97663 CO2 molar conc 21.9 21.0 - 31.0 mmol/L Normal 08-02-2018 [facility] (49897) Comment: Performed By: #### [id number] ####[address] [address] Creatinine mass conc 0.8 0.6 - 1.2 mg/dl Normal 08-02-2018 [facility] (65470) Comment: Performed By: #### [id number] ####[address] [address] GFR/1.73 sq M predicted among Normal 08-02-2018 [facility] non-blacks MDRD vol rate/[facility] (03195) (S/P/Bld) Comment: Result Comment: COMPREHENSIVE METABOLIC PANEL Performed By: #### [id number] ####[address] [address] GFR/1.73 sq M >60 60 - 999 mL/min/{1.73_m2} Normal 08-02-2018 [facility] non-blacks MDRD vol (39976) rate/area (S/P/Bld) Comment: Result Comment: ACCORDING TO THE NATIONAL KIDNEY DISEASE EDUCATION PROGRAM(NKDE), A NORMAL eGFR IS A VALUE GREATER THAN OR EQUAL TO 60 ML/MIN/1.73 SQ METERS. CHRONIC KIDNEY DISEASE: <60mL/MIN/1.73 SQ METERS KIDNEY FAILURE: <15mL/MIN/1.73 SQ METERS THIS TEST SHOULD ONLY BE USED FOR PATIENTS 18 YEARS OF AGE AND OLDER. Performed By: #### [id number] ####[address] [address] Globulin mass conc (S) 2.5 1.5 - 3.8 G/DL Normal 08-02-2018 [facility] (38645) Comment: Performed By: #### [id number] ####[address] [address] Glucose mass conc 240 74 - 106 mg/dl High 08-02-2018 [facility] (88267) Comment: Performed By: #### [id number] ####[address] [address] Potassium molar conc 3.7 3.5 - 5.1 mmol/L Normal 08-02-2018 [facility] (99651) Comment: Performed By: #### [id number] ####[address] [address]683 Protein mass conc 6.3 6.4 - 8.3 g/dl Low 08-02-2018 [facility] (30688) Comment: Performed By: #### [id number] ####[address] [address] Sodium molar conc 134 136 - 145 mmol/l Low 08-02-2018 [facility] (22184) Comment: Performed By: #### [id number] ####[address] [address] Urea nitrogen mass conc 11 6 - 20 mg/dl Normal 08-02-2018 [facility] (36973) Comment: Performed By: #### [id number] ####[facility],[address] [place] [address] 66355 nm cardiac stress (spect) w/lexiscan on 2019-01-26 NM CARDIAC STRESS [facility] Normal 01-26-2019 [facility] (SPECT) W/LEXISCAN [address] [address] ([address]) Patient: ASHLEY MARIE Phone#: : 1950 Age: 68 Gender: F Pt. Type: Out Account: [id number] Location: [facility] Ordering: [facility] Exam Date: 01/26/2019/6:22 Family Phys: KAVITA IVEY Charge Code: [id number] Physician: [place] Order #: [id number] DLP Dose#: PROCEDURE: CARDIAC STRESS SPECT WITH LEXISCAN HISTORY: 68-year-old female with history of COPD, lung CA S/P lobectomy INDICATIONS: Abnormal EKG, pre-op clearance TECHNIQUE: Resting and post Lexiscan stress SPECT images acquired in the horizontal long, vertical long and short axis views. Protocol: Lexiscan Duration: 0.4mg over 10 seconds Peak Heart Rate: 104 bpm, which is 68% of maximum predicted heart rate. Workload: not applicable REST DOSE: 10.7 mCi Sestamibi. STRESS DOSE: 32.2 mCi Sestamibi. INTERPRETATION: Resting Images: Reduced radiotracer uptake in the septal region as well as inferior wall Post Lexiscan stress Images: Near normalization of the resting perfusion defect involving the septal and inferior region with normal wall motion, suggestive of soft tissue/breast attenuation artifact. The rest of the myocardium has relatively homogenous radiotracer uptake. Gated SPECT/wall motion: Normal wall motion and normal end-systolic brightening and thickening of all myocardial segments. Normal left ventricle systolic function, calculated LVEF 72%. Left ventricle end diastolic volume 66 mL. TID ratio 1.15. CONCLUSION: 1. No conclusive evidence of inducible ischemia or prior myocardial infarction. 2. Soft/breast attenuation and inferior diaphragmatic attenuation artifact reduces the sensitivity of the above findings. 3. Normal wall motion and normal left ventricle systolic function, calculated LVEF 72%. Continued Report - Page 2 of 2 Patient: ASHLEY MARIE Phone#: : 1950 Age: 68 Gender: F Pt. Type: Out Account: [id number] Location: 052 Ordering: ANA MARIA CLARK Exam Date: 01/26/2019/6:22 Family Phys: KAVITA IVEY Charge Code: [id number] Physician: [place] Order #: [id number] DLP Dose#: 4. No prior study available for comparison. Dictated by: ANA MARIA CLARK on 01/26/2019 at 10:41 Approved by: ANA MARIA CLARK on 01/26/2019 at 10:41 nm exercise stress test (w/cardiac study on 2019-01-26 NM EXERCISE STRESS [facility] Normal [facility]-26-[facility] STUDY [address] [place] [address] (266[address]) Patient: ASHLEY MARIE Phone#: : 1950 Age: 68 Gender: F Pt. Type: Out Account: [id number] Location: 052 Ordering: ANA MARIA CLARK Exam Date: 01/26/2019/6:57 Family Phys: KAVITA IVEY Charge Code: [id number] Physician: [place] Order #: [id number] DLP Dose#: PROCEDURE: ELECTROCARDIOGRAM STRESS TEST HISTORY: 68-year-old female with history of COPD, lung cancer INDICATIONS: Abnormal EKG, pre-op clearance TECHNIQUE: Electrocardiogram stress test was performed using the protocol listed below. STRESS RESULTS: Protocol: Lexiscan Duration: 0.4mg over 10 seconds Resting Heart Rate: 71 bpm. Resting Blood Pressure: 158/80 mmHg Peak Heart Rate: 104 which is 68% of maximum predicted heart rate Blood pressure with Lexiscan With Lexiscan infusion blood pressure increased to162/79 Workload: 1.00 METs. Symptoms with stress: No Lexiscan induced chest pain EKG at Baseline: Normal sinus rhythm. Left bundle branch block. Abnormal EKG. EKG with Stress: Nondiagnostic Lexiscan EKG stress test due to underlying left bundle branch block. CONCLUSION: 1. Nondiagnostic Lexiscan EKG stress test due to underlying left bundle branch block. 2. Normal physiological response Lexiscan. 3. Nuclear images will be reviewed and reported separately. Dictated by: ANA MARIA CLARK on 01/26/2019 at 10:38 Approved by: ANA MARIA CLARK on 01/26/2019 at 10:38 bnp (b-type natriuretic peptide) on 2018-08-01 Natriuretic peptide B mass 43 1 - 100 pg/ml Normal 08-01-2018 [facility] (58792) Comment: Performed By: #### [id number] ####[facility],[address] [place] [address] ct brain w/wo contrast on 2018-09-15 CT BRAIN W/WO [facility] Normal 09-15-2018 [place] [address] (61879) Patient: ASHLEY MARIE Phone#: : 1950 Age: 67 Gender: F Pt. Type: Out Account: [id number] Location: [facility] Ordering: [facility] Exam Date: 09/15/2018/14:02 Family Phys: KAVITA IVEY Charge Code: [id number] Physician: [place] Order #: [id number] DLP Dose#: PROCEDURE: CT BRAIN WITH AND [...] no visible acute abnormality. Dictated by: Alejandro Melendez MD on 09/15/2018 at 14:44 Continued Report - Page 2 of 2 Patient: ASHLEY MARIE Phone#: : 1950 Age: 67 Gender: F Pt. Type: Out Account: [id number] Location: [facility] Ordering: [facility] Exam Date: 09/15/2018/14:02 Family Phys: KAVITA IVEY Charge Code: [id number] Physician: [place] Order #: [id number] DLP Dose#: Approved by: Alejandro Melendez MD on 09/15/2018 at 14:44 hip complete rt min 2 views w/pelvis on 2018-09-15 HIP COMPLETE RT MIN [facility] Normal 09-15-2018 [facility] 2 VIEWS W/PELVIS [place] [address] (93830) Patient: ASHLEY MARIE Phone#: : 1950 Age: 67 Gender: F Pt. Type: Out Account: [id number] Location: 052 Ordering: [facility] Exam Date: 09/15/2018/13:24 Family Phys: KAVITA IVEY Charge Code: 676145 Physician: [place] Order #: [id number] DLP Dose#: PROCEDURE: X-RAY HIP RT COMPLETE [...] Alejandro Melendez MD on 09/15/2018 at 15:06 cv echo complete on 2019-01-26 CV ECHO COMPLETE [facility] Normal 01-26-2019 [place] [address] ([id number]) Patient: ASHLEY MARIE Phone#: : 1950 Age: 68 Gender: F Pt. Type: Out Account: [id number] Location: [facility] Ordering: [facility] MAR[facility] CL[facility] Exam Date: 01/26/2019/7:39 Family Phys: Charge Code: [id number] Physician: [place] Order #: [id number] DLP Dose#: PROCEDURE: ECHOCARDIOGRAM WITH DOPPLER AND COLOR FLOW HISTORY: 68-year-old female with history of COPD, lung cancer INDICATIONS: Abnormal electrocardiogram TECHNIQUE: A 2-D ultrasound, color spectral Doppler and M-mode evaluation of the heart and great vessels. PATIENT MEASUREMENTS: Height (in.): 62 BSA: 1.7 Weight (lbs.): 160 BP: 156/84 [employer] Meat: CARLOZ M MODE 2D MEASUREMENTS AND CALCULATIONS: LVIDd: 3.67 cm LVIDs: 2.41 cm IVSd: 1.02 cm LVPWd: 1.00 cm FS: 34.23 % Ao Root diam: 2.77 cm LA diam: 3.19 cm LA Volume Index: 19.1 mL/m2 LA A4 Area: 11.3 cm RA A4 Area: 11.4 cm RVDd: 2.21 cm TAPSE: 20 mm DOPPLER MEASUREMENTS AND CALCULATIONS MITRAL MV E MAX vargas: 62.11 cm/s MV A MAX vargas: 82.07 cm/s MV E-A ratio: 0.76 Lat Peak E' Vargas 7 cm/s Septal Peak E' VARGAS 7 cm/s Continued Report - Page 2 of 3 Patient: ASHLEY MARIE Phone#: : 1950 Age: 68 Gender: F Pt. Type: Out Account: [id number] Location: [facility] Ordering: A[facility] MAR[facility] CLARK Exam Date: 01/26/2019/7:39 Family Phys: Charge Code: [id number] Physician: [place] Order #: [id number] DLP Dose#: Lateral E./E.' 8.8 Medial E./E.' 8.6 AORTIC Ao V2 max: 140.42 cm/s Ao max P.89 mm[Hg] LV V1 Max 108.28 cm/s LV V1 Max PG 4.69 mm[Hg] PULMONIC PA V2 Max 89.38 cm/s PA Max PG 3.20 mm[Hg] TRICUSPID TR Max Vargas 238.65 cm/s TR max PG 22.78 mm[Hg] RVSP 26 mmHg 2D/M-MODE AND COLOR FLOW LEFT VENTRICLE: Normal left ventricle size and wall thickness. Abnormal septal motion likely secondary to underlying left bundle-branch block. Normal left ventricle systolic function, ejection fraction 55-60%. Normal diastolic function for age. RIGHT VENTRICLE: Normal size and systolic function. LEFT ATRIUM: Normal RIGHT ATRIUM: Normal MITRAL VALVE: Mild mitral annular calcification. Mild mitral valve leaflet thickening with normal leaflet mobility. Trace mitral regurgitation. TRICUSPID VALVE: Normal leaflet structure and mobility. Trace tricuspid regurgitation. AORTIC VALVE: Trileaflet aortic valve with focal calcification predominantly of the noncoronary cusp. Normal leaflet mobility. Mild aortic sclerosis with no significant aortic stenosis. Trace aortic insufficiency. PULMONIC VALVE: Not well visualized. Trace pulmonic insufficiency. AORTIC ROOT: Normal size and mildly calcified IVC/SVC: Normal size and normal respirophasic response PERICARDIUM: No significant pericardial effusion CONCLUSION: 1. Normal left ventricle size with normal left systolic function, ejection fraction 55-60%. 2. Normal right ventricle size and systolic function. 3. Mild mitral annular calcification with trace mitral regurgitation. 4. Mild aortic sclerosis with no significant aortic stenosis. 5. Mildly calcified aortic root. 6. Normal diastolic function for age. 7. RVSP estimated to be 26 mmHg. 8. No prior study available for comparison. [place] [address] Patient: ASHLEY MARIE Phone#: : 1950 Age: 68 Gender: F Pt. Type: Out Account: [id number] Location: [facility] Ordering: [facility] CL[facility] Exam Date: 01/26/2019/7:39 Family Phys: Charge Code: [id number] Physician: [place] Order #: [id number] DLP Dose#: Dictated by: ANA MARIA CLARK on 01/26/2019 at 10:36 Approved by: ANA MARIA CLARK on 01/26/2019 at 10:36 cmp with egfr on 2018-08-01 Age Reported 67 years Normal 08-01-2018 [facility] (42246) Comment: Performed By: #### [id number] ####[address] [address] Albumin mass conc 4.2 3.4 - 4.8 g/dL Normal 08-01-2018 [facility] (34327) Comment: Performed By: #### [id number] ####[address] [address] Albumin/Globulin mass ratio 1.6 0.9 - 1.6 {ratio} Normal 08-01-2018 [facility] (63329) Comment: Performed By: #### [id number] ####[address] [address] ALK PHOS 54 38 - 126 U/L Normal 08-01-2018 [facility] (92454) Comment: Performed By: #### [id number] ####[address] [address] ALT/SGPT 14 8 - 35 U/L Normal 08-01-2018 [facility] (11020) Comment: Performed By: #### [id number] ####[address] [place] [address] Anion gap molar conc 14 10 - 20 mmol/L Normal 08-01-2018 [facility] (33184) Comment: Performed By: #### [id number] ####[facility],[address] [place] [address] 25901 AST/SGOT 15 13 - 39 U/L Normal 08-01-2018 [facility] (63618) Comment: Performed By: #### 314119 ####[facility],[address] [place] [address] 12084 B/C RATIO 13 0 - 30 ratio Normal 08-01-2018 [facility] (33716) Comment: Performed By: #### 335101 ####[facility],[address] [place] [address] 46730 Bilirubin mass conc 0.8 0.0 - 1.5 mg/dl Normal 08-01-2018 [facility] (63861) Comment: Performed By: #### 126915 ####[facility],[address] [place] [address] 76719 Calcium mass conc 9.1 8.6 - 10.2 mg/dl Normal 08-01-2018 [facility] (80091) Comment: Performed By: #### [id number] ####[facility],[address] [place] [address] 15062 Chloride molar conc 100 98 - 107 mmol/L Normal 08-01-2018 [facility] (65426) Comment: Performed By: #### [id number] ####[facility],[address] [place] [address] 33821 CO2 molar conc 23.6 21.0 - 31.0 mmol/L Normal 08-01-2018 [facility] (41246) Comment: Performed By: #### [id number] ####[facility],[address] [place] [address] 34663 Creatinine mass conc 0.8 0.6 - 1.2 mg/dl Normal 08-01-2018 [facility] (72927) Comment: Performed By: #### 390446 ####[facility],[address] [place] [address] 44311 GFR/1.73 sq M predicted among Normal 08-01-2018 [facility] non-blacks MDRD vol rate/area Hospital (05597) (S/P/Bld) Comment: Result Comment: COMPREHENSIVE METABOLIC PANEL Performed By: #### [id number] ####[facility],[address] [place] [address] 72329 GFR/1.73 sq M >60 60 - 999 mL/min/{1.73_m2} Normal 08-01-2018 [facility] predicted [facility] non-blacks MDRD vol (70182) rate/area (S/P/Bld) Comment: Performed By: #### [id number] ####[address] [address] Result Comment: ACCORDING TO THE NATIONAL KIDNEY DISEASE EDUCATION PROGRAM(NKDE), A NORMAL eGFR IS A VALUE GREATER THAN OR EQUAL TO 60 ML/MIN/1.73 SQ METERS. CHRONIC KIDNEY DISEASE: <60mL/MIN/1.73 SQ METERS KIDNEY FAILURE: <15mL/MIN/1.73 SQ METERS THIS TEST SHOULD ONLY BE USED FOR PATIENTS 18 YEARS OF AGE AND OLDER. Globulin mass conc (S) 2.7 1.5 - 3.8 G/DL Normal 08-01-2018 [facility] (14986) Comment: Performed By: #### [id number] ####[address] [address] Glucose mass conc 137 74 - 106 mg/dl High 08-01-2018 [facility] (28727) Comment: Performed By: #### [id number] ####[address] [address] Potassium molar conc 3.6 3.5 - 5.1 mmol/L Normal 08-01-2018 [facility] (92921) Comment: Performed By: #### 238909 ####[facility],[address] [place] [address] 66623 Protein mass conc 6.9 6.4 - 8.3 g/dl Normal 08-01-2018 [facility] (82143) Comment: Performed By: #### [id number] ####[facility],[address] [place] [address] 44467 Sodium molar conc 134 136 - 145 mmol/l Low 08-01-2018 [facility] (51472) Comment: Performed By: #### 156352 ####[facility],[address] [place] [address] 94147 Urea nitrogen mass conc 10 6 - 20 mg/dl Normal 08-01-2018 [facility] (39737) Comment: Performed By: #### [id number] ####[facility],[address] [place] [address] 82699 progress note on 2018-08-15 Protein mass conc [facility] Normal 08-15-2018 [facility] PROGRESS NOTE ([id number]) NAME ACCOUNT SEX AGE ADMIT DISCHARGE PT MED. RECORD# NUMBER DATE DATE TYPE ASHLEY MARIE [id number] F 67 08/01/18 1 [id number] ROOM: [facility] DATE OF : 1950 DICTATING PHYSICIAN: Kavita [...] Kavita Ivey MD 08/06/18 17:36 JOB #: [id number] Transcribed By: am 08/06/18 17:50 Electronically signed by: GIOVANNI IVEY MD 08/15/18 15:04 Page 1 of 2 ASHLEY MARIE Progress Note Page 2 of 2 ASHLEY MARIE Progress Note Protein mass [facility] Normal 08-15-2018 [facility] PROGRESS NOTE (08039) NAME ACCOUNT SEX AGE ADMIT DISCHARGE PT MED. RECORD# NUMBER DATE DATE TYPE ASHLEY MARIE [id number] F 67 08/01/18 1 [id number] ROOM: [facility] DATE OF : 1950 DICTATING PHYSICIAN: Kavita [...] Kavita Ivey MD 08/05/18 14:09 JOB #: [id number] Transcribed By: sherri 08/06/18 07:15 Electronically signed by: GIOVANNI IVEY MD 08/15/18 15:03 Page 1 of 1 ASHLEY MARIE Progress Note Protein mass [facility] Normal 08-15-2018 [facility] PROGRESS NOTE [facility] NAME NUMBER SEX AGE ADMIT DISC TYPE ([id number]) MED.RECORD# ROCK RAMIREZ [id number] F 67 08/01/18 I/P [id number] ROOM:301 DATE OF :1950 PHYSICIAN NO.:[id number] PHYSICIAN NAME:GIOVANNI IVEY MD PHYSICIAN:GIOVANNI IVEY MD [...] creatinine 0.7, and glucose 107. ASSESSMENT/PLAN: 1. Imuon-ng-xdtzlvr chronic obstructive pulmonary disease exacerbation with minimal [...] Kavita Ivey MD 08/04/18 10:52 JOB #: [id number] Transcribed By: wilberto 08/04/18 13:32 Electronically signed by: GIOVANNI IVEY MD 08/15/18 14:39 Protein mass [facility] Normal 08-15-2018 [facility] PROGRESS NOTE ([id number]) NAME ACCOUNT SEX AGE ADMIT DISCHARGE PT MED. RECORD# NUMBER DATE DATE TYPE ASHLEY MARIE [id number] F 67 08/01/18 1 [id number] ROOM: 301 DATE OF : 1950 DICTATING [...] creatinine 0.7, and glucose 107. ASSESSMENT/PLAN: 1. Munxu-nj-pxflyym chronic obstructive pulmonary disease exacerbation with minimal [...] Kavita Ivey MD 08/04/18 10:52 JOB #: [id number] Transcribed By: wilberto 08/04/18 13:32 Electronically signed by: GIOVANNI IVEY MD 08/15/18 14:39 Page 1 of 1 ASHLEY MARIE Progress Note creatinine on 2018-09-15 Creatinine mass conc 0.8 0.6 - 1.2 mg/dl Normal 09-15-2018 [facility] (15419) Comment: Performed By: #### [id number] #### [facility],[address] [place] [address] 49832 bun on 2018-09-15 Urea nitrogen mass conc 15 6 - 20 mg/dl Normal 09-15-2018 [facility] (15703) Comment: Performed By: #### [id number] #### [facility],[address] [place] [address] 63999 chest 2 views on 2018-08-01 CHEST 2 VIEWS [facility] Normal 08-01-2018 [place] [address] ([id number]) Patient: ASHLEY MARIE. Phone#: : 1950 Age: 67 Gender: F Pt. Type: ER Account: [id number] Location: [facility] Ordering: PETERSON KEITA Exam Date: 08/01/2018/19:31 Family Phys: KAVITA IVEY Charge Code: 477443 Physician: [place] Order #: [id number] DLP Dose#: PROCEDURE: X-RAY CHEST 2 VIEWS COMPARISON: [facility], XR, CHEST 2 VIEWS, 02/17/2018, 10:30. INDICATIONS: Pneumonia [...] Tea Oneill MD on 08/01/2018 at 19:56 bmp with egfr on 2018-08-06 Age Reported 67 years Normal 08-06-2018 [facility] (04990) Comment: Performed By: #### [id number] #### [facility],[address] [place] [address] 80914 Anion gap molar conc 10 10 - 20 mmol/L Normal 08-06-2018 [facility] (94092) Comment: Performed By: #### [id number] #### [facility],[address] [place] [address] 37950 Calcium mass conc 9.2 8.6 - 10.2 mg/dl Normal 08-06-2018 [facility] (39780) Comment: Performed By: #### [id number] #### [facility],[address] [place] [address] 88657 Chloride molar conc 102 98 - 107 mmol/L Normal 08-06-2018 [facility] (00067) Comment: Performed By: #### [id number] #### [facility],[address] [place] [address] 44134 CO2 molar conc 31.8 21.0 - 31.0 mmol/L High 08-06-2018 [facility] (96660) Comment: Performed By: #### [id number] #### [facility],07 [place] [address] [place] [address] Creatinine mass conc 0.7 0.6 - 1.2 mg/dl Normal 08-06-2018 [facility] (25891) Comment: Performed By: #### [id number] #### [facility],[address] [place] [address] 91621 GFR/1.73 sq M predicted among Normal 08-06-2018 [facility] non-blacks MDRD vol rate/area Hospital (17524) (S/P/Bld) Comment: Result Comment: BASIC METABOLIC PANEL Performed By: #### [id number] #### [facility],[address] [place] [address] 75938 GFR/1.73 sq M >60 60 - 999 mL/min/{1.73_m2} Normal 08-06-2018 [facility] non-blacks MDRD vol (83085) rate/area (S/P/Bld) Comment: Result Comment: ACCORDING TO THE NATIONAL KIDNEY DISEASE EDUCATION PROGRAM(NKDE), A NORMAL eGFR IS A VALUE GREATER THAN OR EQUAL TO 60 ML/MIN/1.73 SQ METERS. CHRONIC KIDNEY DISEASE: <60mL/MIN/1.73 SQ METERS KIDNEY FAILURE: <15mL/MIN/1.73 SQ METERS THIS TEST SHOULD ONLY BE USED FOR PATIENTS 18 YEARS OF AGE AND OLDER. Performed By: #### [id number] #### [facility],[address] [place] [address] 19689 Glucose mass conc 106 74 - 106 mg/dl Normal 08-06-2018 [facility] (23781) Comment: Performed By: #### [id number] #### [address] [address] Potassium molar conc 3.7 3.5 - 5.1 mmol/L Normal 08-06-2018 [facility] (16577) Comment: Performed By: #### [id number] #### [address] [address] Sodium molar conc 140 136 - 145 mmol/l Normal 08-06-2018 [facility] (28132) Comment: Performed By: #### [id number] #### [address] [address] Urea nitrogen mass conc 10 6 - 20 mg/dl Normal 08-06-2018 [facility] (92051) Comment: Performed By: #### [id number] #### [address] [address] cbc on 2018-08-06 Basophils #/vol (Bld) 0.10 0.00 - 0.10 x10EE3/UL Normal 08-06-2018 [facility] (27102) Comment: Performed By: #### [id number] #### [facility],[address] [place] [address] 31826 Basophils/100 WBC (Bld) 0.5 0.0 - 2.0 % Normal 08-06-2018 [facility] (56823) Comment: Performed By: #### [id number] #### [facility],[address] [place] [address] 67335 CBC Normal 08-06-2018 [facility] (68773) Comment: Result Comment: CBC-COMPLETE BLOOD COUNT Performed By: #### [id number] #### [facility],[address] [place] [address] 51634 Eosinophils #/vol 0.10 0.00 - 0.50 x10EE3/UL Normal 08-06-2018 [facility] (11452) Comment: Performed By: #### [id number] #### [facility],[address] [place] [address] 51092 Eosinophils/100 WBC (Bld) 0.5 0.0 - 7.0 % Normal 08-06-2018 [facility] (22342) Comment: Performed By: #### [id number] #### [address] [address] Erythrocyte distribution 14.6 12.0 - 15.6 % Normal 08-06-2018 [facility] width Ratio (RBC) [facility] (80667) Comment: Performed By: #### [id number] #### [facility],[address] [place] [address] 55171 Hematocrit Volume 38.2 34.0 - 46.0 % Normal 08-06-[address] [facility] ([facility] (58801) Comment: Performed By: #### [id number] #### [facility],[address] [place] [address] 32671 Hemoglobin mass conc 12.7 12.0 - 16.0 g/dl Normal 08-06-2018 [facility] (97201) Comment: Performed By: #### [id number] #### [facility],[address] [place] [address] 64096 Lymphocytes #/vol 2.50 0.80 - 2.80 x10EE3/UL Normal 08-06-2018 [facility] (82922) Comment: Performed By: #### [id number] #### [facility],[address] [place] [address] 54385 Lymphocytes/100 WBC (Bld) 21.5 20.0 - 45.0 % Normal 08-06-2018 [facility] (47473) Comment: Performed By: #### [id number] #### [facility],[address] [place] [address] 36804 MANUAL DIFF N/A Normal 08-06-2018 [facility] (17469) Comment: Performed By: #### [id number] #### [facility],[address] [place] [address] 26695 MCH Entitic mass (RBC) 30 27 - 33 pg Normal 08-06-2018 [facility] (04068) Comment: Performed By: #### [id number] #### [facility],[address] [place] [address] 98537 MCHC mass conc (RBC) 33 32 - 36 X10 3 Normal 08-06-2018 [facility] (58202) Comment: Performed By: #### [id number] #### [facility],[address] [place] [address] 80244 MCV Entitic volume (RBC) 90 80 - 99 fl Normal 08-06-2018 [facility] (28199) Comment: Performed By: #### [id number] #### [facility],[address] [place] [address] 77022 Monocytes #/vol (Bld) 1.10 0.20 - 1.00 x10EE3/UL High 08-06-2018 [facility] (21488) Comment: Performed By: #### [id number] #### [facility],[address] [place] [address] 78138 MONOS % 9.1 0.0 - 10.0 % Normal 08-06-2018 [facility] (09360) Comment: Performed By: #### [id number] #### [facility],[address] [place] [address] 30187 Morphology Interp Felipe (Bld) N/A Normal 08-06-2018 [facility] (58163) Comment: Result Comment: {CD] Performed By: #### [id number] #### [facility],[address] [place] [address] 97819 Neutrophils #/vol (Bld) 8.10 1.50 - 7.10 x10EE3/UL High 08-06-2018 [facility] (98344) Comment: Performed By: #### [id number] #### [facility],[address] [place] [address] 32291 Neutrophils/100 WBC (Bld) 68.4 46.0 - 76.0 % Normal 08-06-2018 [facility] (26780) Comment: Performed By: #### [id number] #### [facility],[address] [place] [address] 54992 Platelet mean volume 7.4 6.6 - 10.5 fl Normal 08-06-2018 [facility] Entitic volume (Bld) Hospital (29904) Comment: Result Comment: AUTOMATED DIFFERENTIAL Performed By: #### [id number] #### [address] [address] Platelets #/vol (Bld) 354 150 - 450 x10EE3/UL Normal 08-06-2018 [facility] (62362) Comment: Performed By: #### [id number] #### [facility],[address] [place] [address] 85998 RBC #/vol (Bld) 4.25 4.10 - 5.30 x 10EE6/UL Normal 08-06-2018 [facility] (98790) Comment: Performed By: #### [id number] #### [facility],[address] [place] [address] 08378 WBC #/vol (Bld) 11.8 4.5 - 10.8 x 10EE3/UL High 08-06-2018 [facility] (33943) Comment: Performed By: #### [id number] #### [facility],[address] [place] [address] 89063 emergency report on 2018-08-07 EMERGENCY REPORT [facility] Normal 08-07-2018 [facility] EMERGENCY ROOM REPORT ([id number]) NAME ACCOUNT SEX AGE ADMIT DISCHARGE PT MED. RECORD# NUMBER DATE DATE TYPE ASHLEY MARIE [id number] F 67 08/01/18 1 [id number] ROOM: [facility] DATE OF : 1950 DICTATING PHYSICIAN: Peterson [...] Peterson Keita MD 08/02/18 01:20 JOB #: [id number] Transcribed By: sherri 08/02/18 07:59 Electronically signed by: E-SIGN: Petersno Keita M.D. 08/07/18 19:30 Page 2 of 2 ASHLEY MARIE Emergency Room Report bmp with egfr on 2018-08-07 Age Reported 67 years Normal 08-07-2018 [facility] (12017) Comment: Performed By: #### [id number] #### [facility],[address] [place] [address] 43587 Anion gap molar conc 11 10 - 20 mmol/L Normal 08-07-2018 [facility] (23579) Comment: Performed By: #### [id number] #### [facility],[address] [place] [address] 63217 Calcium mass conc 9.2 8.6 - 10.2 mg/dl Normal 08-07-2018 [facility] (48937) Comment: Performed By: #### [id number] #### [address] [address] Chloride molar conc 102 98 - 107 mmol/L Normal 08-07-2018 [facility] (71981) Comment: Performed By: #### [id number] #### [address] [address] CO2 molar conc 29.8 21.0 - 31.0 mmol/L Normal 08-07-2018 [facility] (39602) Comment: Performed By: #### [id number] #### [address] [address] Creatinine mass conc 0.7 0.6 - 1.2 mg/dl Normal 08-07-2018 [facility] (36252) Comment: Performed By: #### [id number] #### [address] [address] GFR/1.73 sq M >60 60 - 999 mL/min/{1.73_m2} Normal 08-07-2018 [facility] non-blacks MDRD vol (01730) rate/area (S/P/Bld) Comment: Result Comment: ACCORDING TO THE NATIONAL KIDNEY DISEASE EDUCATION PROGRAM(NKDE), A NORMAL eGFR IS A VALUE GREATER THAN OR EQUAL TO 60 ML/MIN/1.73 SQ METERS. CHRONIC KIDNEY DISEASE: <60mL/MIN/1.73 SQ METERS KIDNEY FAILURE: <15mL/MIN/1.73 SQ METERS THIS TEST SHOULD ONLY BE USED FOR PATIENTS 18 YEARS OF AGE AND OLDER. Performed By: #### [id number] #### [address] [address] GFR/1.73 sq M predicted among Normal 08-07-2018 [facility] non-blacks MDRD vol rate/area Hospital (04241) (S/P/Bld) Comment: Result Comment: BASIC METABOLIC PANEL Performed By: #### [id number] #### [address] [address] Glucose mass conc 89 74 - 106 mg/dl Normal 08-07-2018 [facility] (01554) Comment: Performed By: #### [id number] #### [address] [address] Potassium molar conc 3.4 3.5 - 5.1 mmol/L Low 08-07-2018 [facility] (76566) Comment: Performed By: #### [id number] #### [address] [address] Sodium molar conc 139 136 - 145 mmol/l Normal 08-07-2018 [facility] (90529) Comment: Performed By: #### [id number] #### [address] [address] Urea nitrogen mass conc 11 6 - 20 mg/dl Normal 08-07-2018 [facility] (61919) Comment: Performed By: #### [id number] #### [address] [address] cbc on 2018-08-07 Basophils #/vol (Bld) 0.10 0.00 - 0.10 x10EE3/UL Normal 08-07-2018 [facility] (11108) Comment: Performed By: #### 239164 #### [address] [address]389 Basophils/100 WBC (Bld) 0.8 0.0 - 2.0 % Normal 08-07-2018 [facility] (82810) Comment: Performed By: #### [id number] #### [facility],[address] [place] [address] 81636 CBC Normal 08-07-2018 [facility] (08824) Comment: Result Comment: CBC-COMPLETE BLOOD COUNT Performed By: #### [id number] #### [facility],[address] [place] [address] 82999 Eosinophils #/vol 0.10 0.00 - 0.50 x10EE3/UL Normal 08-07-2018 [facility] ([facility] (51842) Comment: Performed By: #### [id number] #### [facility],[address] [place] [address] 54736 Eosinophils/100 WBC (Bld) 0.6 0.0 - 7.0 % Normal 08-07-2018 [facility] (77481) Comment: Performed By: #### 515292 #### [facility],[address] [place] [address] 51208 Erythrocyte distribution 14.5 12.0 - 15.6 % Normal 08-07-2018 [facility] width Ratio (RBC) [facility] (27328) Comment: Performed By: #### [id number] #### [facility],[address] [place] [address] 42696 Hematocrit Volume 38.6 34.0 - 46.0 % Normal 08-07-[address] [facility] ([facility]) [facility] (24942) Comment: Performed By: #### [id number] #### [facility],[address] [place] [address] 73712 Hemoglobin mass conc 12.9 12.0 - 16.0 g/dl Normal 08-07-2018 [facility] ([facility] (09087) Comment: Performed By: #### [id number] #### [facility],[address] [place] [address] 21192 Lymphocytes #/vol 2.80 0.80 - 2.80 x10EE3/UL Normal 08-07-2018 [facility] ([facility] (31082) Comment: Performed By: #### [id number] #### [facility],[address] [place] [address] 83897 Lymphocytes/100 WBC (Bld) 22.8 20.0 - 45.0 % Normal 08-07-2018 [facility] (79288) Comment: Performed By: #### [id number] #### [facility],[address] [place] [address] 51633 MANUAL DIFF N/A Normal 08-07-2018 [facility] (42524) Comment: Performed By: #### [id number] #### [facility],[address] [place] [address] 70924 MCH Entitic mass (RBC) 30 27 - 33 pg Normal 08-07-2018 [facility] (55755) Comment: Performed By: #### [id number] #### [facility],[address] [place] [address] 23412 MCHC mass conc (RBC) 33 32 - 36 X10 3 Normal 08-07-2018 [facility] (81186) Comment: Performed By: #### [id number] #### [facility],[address] [place] [address] 70736 MCV Entitic volume (RBC) 89 80 - 99 fl Normal 08-07-2018 [facility] (55609) Comment: Performed By: #### [id number] #### [facility],[address] [place] [address] 47667 Monocytes #/vol (Bld) 1.00 0.20 - 1.00 x10EE3/UL Normal 08-07-2018 [facility] (95500) Comment: Performed By: #### [id number] #### [facility],[address] [place] [address] 66875 MONOS % 8.0 0.0 - 10.0 % Normal 08-07-2018 [facility] (52524) Comment: Performed By: #### [id number] #### [address] [address] Morphology Interp Felipe (Bld) N/A Normal 08-07-2018 [facility] (31020) Comment: Result Comment: {CD] Performed By: #### [id number] #### [address] [address] Neutrophils #/vol (Bld) 8.30 1.50 - 7.10 x10EE3/UL High 08-07-2018 [facility] (64016) Comment: Performed By: #### [id number] #### [address] [address]773 Neutrophils/100 WBC (Bld) 67.8 46.0 - 76.0 % Normal 08-07-2018 [facility] (53926) Comment: Performed By: #### [id number] #### [address] [address] Platelet mean volume 7.5 6.6 - 10.5 fl Normal 08-07-2018 [facility] Entitic volume (Bld) Hospital (94702) Comment: Result Comment: AUTOMATED DIFFERENTIAL Performed By: #### [id number] #### [address] [address] Platelets #/vol (Bld) 348 150 - 450 x10EE3/UL Normal 08-07-2018 [facility] (64806) Comment: Performed By: #### [id number] #### [address] 8[address]69 RBC #/vol (Bld) 4.35 4.10 - 5.30 x 10EE6/UL Normal 08-07-2018 [facility] (57788) Comment: Performed By: #### [id number] #### [facility],[address] [place] [address] 19788 WBC #/vol (Bld) 12.3 4.5 - 10.8 x 10EE3/UL High 08-07-2018 [facility] (28938) Comment: Performed By: #### [id number] #### [facility],[address] [place] [address] 66438 operative procedures on 2018-04-14 Protein [facility] Normal 04-14-2018 [facility] OPERATIVE REPORT ([id number]) NAME ACCOUNT SEX AGE ADMIT DISCHARGE PT MED. RECORD# NUMBER DATE DATE TYPE ASHLEY MARIE [id number] F 67 04/13/18 04/13/18 2 [id number] ROOM: [facility] DATE OF : 1950 DICTATING PHYSICIAN: Alejandro Sandy DATE OF SURGERY: April 13, 2018, 9:49 a.m. SURGEON: Alejandro Sandy MD INSPECTOR BALANCE BRIDGE: ANESTHESIOLOGIST: ANESTHETIC: MAC PREOPERATIVE DIAGNOSIS: Screening colonoscopy. [...] Alejandro Sandy MD 04/13/18 09:52 JOB #: [id number] Transcribed By: neville 04/13/18 18:16 Electronically signed by: E-SIGN DR. SANDY 04/14/18 10:31 Page 2 of 2 ASHLEY MARIE Operative Report progress note on 2018-08-04 Protein mass [facility] Normal 08-04-2018 [facility] PROGRESS NOTE ([id number]) NAME ACCOUNT SEX AGE ADMIT DISCHARGE PT MED. RECORD# NUMBER DATE DATE TYPE ASHLEY MARIE [id number] F 67 08/01/18 1 [id number] ROOM: 301 DATE OF : 1950 DICTATING [...] Kavita Ivey MD 08/03/18 13:02 JOB #: [id number] Transcribed By: am 08/03/18 13:19 Electronically signed by: GIOVANNI IVEY MD 08/04/18 06:20 Page 1 of 1 ASHLEY MARIE Progress Note bmp with egfr on 2018-08-05 Age Reported 67 years Normal 08-05-2018 [facility] (21611) Comment: Performed By: #### [id number] #### [facility],[address] [place] [address] Anion gap molar conc 12 10 - 20 mmol/L Normal 08-05-2018 [facility] (08317) Comment: Performed By: #### [id number] #### [facility],[address] [place], [place] [id number] Calcium mass conc 8.4 8.6 - 10.2 mg/dl Low 08-05-2018 [facility] (16994) Comment: Performed By: #### [id number] #### [facility],[address] [place] [address] 02190 Chloride molar conc 106 98 - 107 mmol/L Normal 08-05-2018 [facility] (39921) Comment: Performed By: #### 713056 #### [facility],[address] [place] [address] 52835 CO2 molar conc 25.0 21.0 - 31.0 mmol/L Normal 08-05-2018 [facility] (57617) Comment: Performed By: #### [id number] #### [facility],[address] [place] [address] 43801 Creatinine mass conc 0.6 0.6 - 1.2 mg/dl Normal 08-05-2018 [facility] (13311) Comment: Performed By: #### [id number] #### [facility],[address] [place] [address] 66474 GFR/1.73 sq M >60 60 - 999 mL/min/{1.73_m2} Normal 08-05-2018 [facility] predicted among [facility] non-blacks MDRD vol (52372) rate/area (S/P/Bld) Comment: Performed By: #### [id number] #### [facility],[address] [place], [place] [id number] Result Comment: ACCORDING TO THE NATIONAL KIDNEY DISEASE EDUCATION PROGRAM(NKDE), A NORMAL eGFR IS A VALUE GREATER THAN OR EQUAL TO 60 ML/MIN/1.73 SQ METERS. CHRONIC KIDNEY DISEASE: <60mL/MIN/1.73 SQ METERS KIDNEY FAILURE: <15mL/MIN/1.73 SQ METERS THIS TEST SHOULD ONLY BE USED FOR PATIENTS 18 YEARS OF AGE AND OLDER. GFR/1.73 sq M predicted among Normal 08-05-2018 [facility] non-blacks MDRD vol rate/area Hospital (00781) (S/P/Bld) Comment: Result Comment: BASIC METABOLIC PANEL Performed By: #### [id number] #### [facility],[address] [place] [address] 02567 Glucose mass conc 122 74 - 106 mg/dl High 08-05-2018 [facility] (68953) Comment: Performed By: #### [id number] #### [facility],[address] [place] [address] 25514 Potassium molar conc 3.0 3.5 - 5.1 mmol/L Low 08-05-2018 [facility] (20041) Comment: Performed By: #### [id number] #### [facility],[address] [place] [address] 13794 Sodium molar conc 140 136 - 145 mmol/l Normal 08-05-2018 [facility] (37366) Comment: Performed By: #### [id number] #### [facility],[address] [place] [address] 77124 Urea nitrogen mass conc 7 6 - 20 mg/dl Normal 08-05-2018 [facility] (68208) Comment: Performed By: #### [id number] #### [facility],[address] [place] [address] 79432 cbc on 2018-08-05 Basophils #/vol (Bld) 0.10 0.00 - 0.10 x10EE3/UL Normal 08-05-2018 [facility] (08374) Comment: Performed By: #### [id number] #### [facility],[address] [place] [address] 81620 Basophils/100 WBC (Bld) 0.8 0.0 - 2.0 % Normal 08-05-2018 [facility] (43126) Comment: Performed By: #### [id number] #### [facility],[address] [place] [address] 08621 CBC Normal 08-05-2018 [facility] (55284) Comment: Result Comment: CBC-COMPLETE BLOOD COUNT Performed By: #### [id number] #### [facility],[address] [place] [address] 13432 Eosinophils #/vol 0.00 0.00 - 0.50 x10EE3/UL Normal 08-05-2018 [facility] ([facility] (14271) Comment: Performed By: #### [id number] #### [address] [address] Eosinophils/100 WBC (Bld) 0.3 0.0 - 7.0 % Normal 08-05-2018 [facility] (31251) Comment: Performed By: #### [id number] #### [address] [address] Erythrocyte distribution 14.6 12.0 - 15.6 % Normal 08-05-2018 [facility] width Ratio (RBC) [facility] (57694) Comment: Performed By: #### [id number] #### [facility],[address] [place] [address] 79767 Hematocrit Volume 35.2 34.0 - 46.0 % Normal 08-05-2018 [facility] (71309) Comment: Performed By: #### [id number] #### [facility],[address] [place] [address] 65077 Hemoglobin mass conc 11.9 12.0 - 16.0 g/dl Low 08-05-2018 [facility] (36961) Comment: Performed By: #### [id number] #### [facility],[address] [place] [address] 92519 Lymphocytes #/vol 2.20 0.80 - 2.80 x10EE3/UL Normal 08-05-2018 [facility] (01020) Comment: Performed By: #### [id number] #### [address] [address]991 Lymphocytes/100 WBC ([facility]) 21.9 20.0 - 45.0 % Normal 08-05-2018 [facility] (89952) Comment: Performed By: #### [id number] #### [facility],[address] [place] [address] 31626 MANUAL DIFF N/A Normal 08-05-2018 [facility] (01312) Comment: Performed By: #### [id number] #### [address] [address]43 MCH Entitic mass (RBC) 30 27 - 33 pg Normal 08-05-2018 [facility] (12504) Comment: Performed By: #### [id number] #### [address] 06891 MCHC mass conc (RBC) 34 32 - 36 X10 3 Normal 08-05-2018 [facility] (66768) Comment: Performed By: #### [id number] #### [address] 79981 MCV Entitic volume (RBC) 89 80 - 99 fl Normal 08-05-2018 [facility] (97544) Comment: Performed By: #### [id number] #### [facility],[address] [place] [address] 90281 Monocytes #/vol (Bld) 0.80 0.20 - 1.00 x10EE3/UL Normal 08-05-2018 [facility] (83322) Comment: Performed By: #### [id number] #### [facility],[address] [place] [address] 21437 MONOS % 8.3 0.0 - 10.0 % Normal 08-05-2018 [facility] (95867) Comment: Performed By: #### [id number] #### [facility],[address] [place] [address] 33656 Morphology Interp Felipe (Bld) N/A Normal 08-05-2018 [facility] (79926) Comment: Result Comment: {CD] Performed By: #### [id number] #### [facility],[address] [place] [address] 60412 Neutrophils #/vol 6.80 1.50 - 7.10 x10EE3/UL Normal 08-05-2018 [facility] ([facility] (39372) Comment: Performed By: #### [id number] #### [address] 20997 Neutrophils/100 WBC (Bld) 68.7 46.0 - 76.0 % Normal 08-05-2018 [facility] (70585) Comment: Performed By: #### [id number] #### [address] 19679 Platelet mean volume 7.6 6.6 - 10.5 fl Normal 08-05-2018 [facility] (16706) Comment: Result Comment: AUTOMATED DIFFERENTIAL Performed By: #### 256135 #### [address] 19446 Platelets #/vol (Bld) 314 150 - 450 x10EE3/UL Normal 08-05-2018 [facility] (04709) Comment: Performed By: #### [id number] #### [facility],[address] [place] [address] 11106 RBC #/vol (Bld) 3.96 4.10 - 5.30 x 10EE6/UL Low 08-05-2018 [facility] (75868) Comment: Performed By: #### [id number] #### [facility],[address] [place] [address] 15901 WBC #/vol (Bld) 9.9 4.5 - 10.8 x 10EE3/UL Normal 08-05-2018 [facility] (75603) Comment: Performed By: #### [id number] #### [facility],[address] [place] [address] 87698 history and physical exam on 2018-02-28 [facility] Normal 02-28-2018 [facility] PHYSICAL HISTORY & PHYSICAL [facility] NAME ACCOUNT SEX AGE ADMIT DISCHARGE TYPE ([id number]) MED. RECORD# NUMBER DATE DATE ASHLEY MARIE [id number] F 67 02/17/18 1 [id number] ROOM: [facility] DATE OF : [birth year] DICTATING PHYSICIAN: Kavita [...] two puffs every four hours p.r.n. (2) Senokot- S one tablet daily. (3) Losartan 50 mg [...] four children. 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 REVIEW OF SYSTEMS: The patient did not [...] pulse oximetry above or equal to 92%. Bipin Gutierrez for cough, broad-spectrum IV antibiotics with IV Rocephin and Zithromax, IV Solu-Medrol, and incentive spirometry with Acapella. The above was discussed with the patient, and all of her questions were answered. She verbalized understanding of the plan. D: Kavita Ivey MD TD: 02/17/18 16:48 JOB #: [id number] Transcribed by: wilberto Electronically signed by: GIOVANNI IVEY MD 02/27/18 22:00 Update to H&P: [ ] No changes: I have examined the patient and reviewed the H&P and there are no changes. [ ] As previously dictated with the following changes: PHYSICIAN SIGNATURE: TIME: DATE: Page 3 of 3 ASHLEY MARIE History & Physical cbc on 2018-08-03 Basophils #/vol (Bld) 0.00 0.00 - 0.10 x10EE3/UL Normal 08-03-2018 [facility] (84436) Comment: Performed By: #### [id number] ####[address] [address] Basophils/100 WBC (Bld) 0.2 0.0 - 2.0 % Normal 08-03-2018 [facility] (39646) Comment: Performed By: #### [id number] ####[address] [address] CBC Normal 08-03-2018 [facility] (33412) Comment: Result Comment: CBC-COMPLETE BLOOD COUNT Performed By: #### [id number] ####[address] [address] Eosinophils #/vol 0.00 0.00 - 0.50 x10EE3/UL Normal 08-03-2018 [facility] (78798) Comment: Performed By: #### [id number] ####[address] [address]397 Eosinophils/100 WBC (Bld) 0.0 0.0 - 7.0 % Normal 08-03-2018 [facility] (39069) Comment: Performed By: #### [id number] ####[address] [address] Erythrocyte distribution 14.5 12.0 - 15.6 % Normal 08-03-2018 [facility] width Ratio (RBC) [facility] (47976) Comment: Performed By: #### [id number] ####[address] [address] Hematocrit Volume 35.0 34.0 - 46.0 % Normal 08-03-[address] [facility] ([facility] (11889) Comment: Performed By: #### [id number] ####[address] [address] Hemoglobin mass conc 11.7 12.0 - 16.0 g/dl Low 08-03-2018 [facility] (69591) Comment: Performed By: #### [id number] ####[address] [address] Lymphocytes #/vol 1.20 0.80 - 2.80 x10EE3/UL Normal 08-03-2018 [facility] (70719) Comment: Performed By: #### [id number] ####[place] [id number] Lymphocytes/100 WBC (Bld) 6.7 20.0 - 45.0 % Low 08-03-2018 [facility] (90268) Comment: Performed By: #### [id number] ####[address] [address] MANUAL DIFF N/A Normal 08-03-2018 [facility] (76093) Comment: Performed By: #### [id number] ####[address] [address] MCH Entitic mass (RBC) 30 27 - 33 pg Normal 08-03-2018 [facility] (73651) Comment: Performed By: #### [id number] ####[address] [address] MCHC mass conc (RBC) 34 32 - 36 X10 3 Normal 08-03-2018 [facility] (25487) Comment: Performed By: #### [id number] ####[address] [address] MCV Entitic volume (RBC) 90 80 - 99 fl Normal 08-03-2018 [facility] (50243) Comment: Performed By: #### [id number] ####[address] [address] Monocytes #/vol (Bld) 1.10 0.20 - 1.00 x10EE3/UL High 08-03-2018 [facility] (33054) Comment: Performed By: #### [id number] ####[facility],[address] [place] [address] MONOS % 6.1 0.0 - 10.0 % Normal 08-03-2018 [facility] (34540) Comment: Performed By: #### [id number] ####[facility],[address] [place] [address] Morphology Interp Felipe (Bld) N/A Normal 08-03-2018 [facility] (38445) Comment: Result Comment: {CD] Performed By: #### 552306 ####[address] [address] Neutrophils #/vol 16.10 1.50 - 7.10 x10EE3/UL High 08-03-2018 [facility] (15302) Comment: Performed By: #### [id number] ####[address] [address] Neutrophils/100 WBC (Bld) 87.0 46.0 - 76.0 % High 08-03-2018 [facility] (92275) Comment: Performed By: #### [id number] ####[address] [address] Platelet mean volume 7.9 6.6 - 10.5 fl Normal 08-03-2018 [facility] ([facility]) [facility] (57669) Comment: Result Comment: AUTOMATED DIFFERENTIAL Performed By: #### [id number] ####[address] [address] Platelets #/vol (d) 276 150 - 450 x10EE3/UL Normal 08-03-2018 [facility] (81446) Comment: Performed By: #### [id number] ####[address] [address] RBC #/vol (Bld) 3.92 4.10 - 5.30 x 10EE6/UL Low 08-03-2018 [facility] (87589) Comment: Performed By: #### [id number] ####[facility],[address] [place] [address] WBC #/vol (Bld) 18.5 4.5 - 10.8 x 10EE3/UL High 08-03-2018 [facility] (66580) Comment: Performed By: #### [id number] ####[facility],[address] [place] [address] history and physical exam on 2018-08-04 HISTORY [facility] Normal 08-04-2018 [facility] NAME ACCOUNT SEX AGE ADMIT DISCHARGE PT ([id number]) MED. RECORD# NUMBER DATE DATE TYPE ASHLEY MARIE [id number] F 67 08/01/18 1 [id number] ROOM: [facility] DATE OF : 48 DICTATING PHYSICIAN: Kavita Ivey CHIEF COMPLAINT: Shortness of breath. HISTORY OF PRESENT ILLNESS: A 67-year-old female with a past medical history significant for severe COPD with multiple exacerbations in the past. History of respiratory failure and recurrent pneumonias. She stated that about 1 week ago, she had a for her wmkhpr-zl-itk. She does not usually leave the house [...] 4 children. 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 REVIEW OF SYSTEMS: She does not recall [...] for Dr. Ivey. 08/02/18 10:41 JOB #: [id number] Transcribed By: sherri 08/02/18 10:48 Electronically signed by: GIOVANNI IVEY MD 08/04/18 06:18 Update to H&P: [ ] No changes: I have examined the patient and reviewed the H&P and there are no changes. [ ] As previously dictated with the following changes: Page 3 of 4 ASHLEY MARIE History & Physical PHYSICIAN SIGNATURE: TIME: DATE: Page 4 of 4 ASHLEY MARIE History & Physical cbc on 2018-08-04 Basophils #/vol (Bld) 0.10 0.00 - 0.10 x10EE3/UL Normal 08-04-2018 [facility] (53404) Comment: Performed By: #### [id number] #### [facility],[address],[place] [address] Basophils/100 WBC (Bld) 0.4 0.0 - 2.0 % Normal 08-04-2018 [facility] (72207) Comment: Performed By: #### [id number] #### [facility],[address] [place] [address] CBC Normal 08-04-2018 [facility] (09802) Comment: Result Comment: CBC-COMPLETE BLOOD COUNT Performed By: #### [id number] #### [facility],[address] [place] [address] Eosinophils #/vol 0.00 0.00 - 0.50 x10EE3/UL Normal 08-04-2018 [facility] ([facility] (35370) Comment: Performed By: #### [id number] #### [facility],[address] [place] [address] Eosinophils/100 WBC (d) 0.1 0.0 - 7.0 % Normal 08-04-2018 [facility] (43725) Comment: Performed By: #### [id number] #### [facility],[address] [place], [place] [id number] Erythrocyte distribution 14.5 12.0 - 15.6 % Normal 08-04-2018 [facility] width Ratio (RBC) [facility] (95903) Comment: Performed By: #### [id number] #### [place] [id number] Hematocrit Volume 35.7 34.0 - 46.0 % Normal 08-04-[address] [facility] ([facility]) [facility] (84324) Comment: Performed By: #### [id number] #### [place] [id number] Hemoglobin mass conc 11.7 12.0 - 16.0 g/dl Low 08-04-2018 [facility] ([facility]) [facility] (69058) Comment: Performed By: #### [id number] #### [facility],[address] [place] [address] Lymphocytes #/vol 2.00 0.80 - 2.80 x10EE3/UL Normal 08-04-2018 [facility] ([facility] (97567) Comment: Performed By: #### [id number] #### [facility],[address] [place] [address] Lymphocytes/100 WBC (Bld) 14.9 20.0 - 45.0 % Low 08-04-2018 [facility] (04687) Comment: Performed By: #### [id number] #### [facility],[address] [place] [address] MANUAL DIFF N/A Normal 08-04-2018 [facility] (03391) Comment: Performed By: #### [id number] #### [facility],[address] [place] [address] MCH Entitic mass (RBC) 30 27 - 33 pg Normal 08-04-2018 [facility] (18156) Comment: Performed By: #### [id number] #### [facility],[address] [place] [address] MCHC mass conc (RBC) 33 32 - 36 X10 3 Normal 08-04-2018 [facility] (33929) Comment: Performed By: #### [id number] #### [address] [address] MCV Entitic volume (RBC) 90 80 - 99 fl Normal 08-04-2018 [facility] (90811) Comment: Performed By: #### [id number] #### [facility],[address] [place] [address] Monocytes #/vol (Bld) 0.70 0.20 - 1.00 x10EE3/UL Normal 08-04-2018 [facility] (92882) Comment: Performed By: #### [id number] #### [facility],[address] [place] [address] MONOS % 5.3 0.0 - 10.0 % Normal 08-04-2018 [facility] (13593) Comment: Performed By: #### [id number] #### [facility],[address] [place] [address] Morphology Interp Felipe (Bld) N/A Normal 08-04-2018 [facility] (40427) Comment: Result Comment: {CD] Performed By: #### [id number] #### [facility],[address] [place] [address] Neutrophils #/vol 10.90 1.50 - 7.10 x10EE3/UL High 08-04-2018 [facility] ([facility]) [facility] (29816) Comment: Performed By: #### [id number] #### [address] [address] Neutrophils/100 WBC (Bld) 79.3 46.0 - 76.0 % High 08-04-2018 [facility] (83449) Comment: Performed By: #### [id number] #### [address] [address] Platelet mean volume 7.6 6.6 - 10.5 fl Normal 08-04-2018 [facility] ([facility]) [facility] (20480) Comment: Result Comment: AUTOMATED DIFFERENTIAL Performed By: #### [id number] #### [address] [address] Platelets #/vol (Bld) 310 150 - 450 x10EE3/UL Normal 08-04-2018 [facility] (99409) Comment: Performed By: #### [id number] #### [address] [address] RBC #/vol (Bld) 3.98 4.10 - 5.30 x 10EE6/UL Low 08-04-2018 [facility] (64977) Comment: Performed By: #### [id number] #### [place] [address],[place] [address] WBC #/vol (Bld) 13.7 4.5 - 10.8 x 10EE3/UL High 08-04-2018 [facility] (11198) Comment: Performed By: #### [id number] #### [facility],[address] [place] [address] hgb a1c on 2018-08-03 Hemoglobin A1c/Hemoglobin.total 6.0 4.4 - 6.4 % Normal 08-03-2018 [facility] mass fraction (Bld) [facility] (82245) Comment: Result Comment: {HB] {A1] Performed By: #### [id number] #### [facility],[address] [place] [address] bmp with egfr on 2018-08-04 Age Reported 67 years Normal 08-04-2018 [facility] (34501) Comment: Performed By: #### [id number] #### [facility],[address] [place] [address] Anion gap molar conc 9 10 - 20 mmol/L Low 08-04-2018 [facility] (59703) Comment: Performed By: #### [id number] #### [facility],[address] [place] [address] Calcium mass conc 8.5 8.6 - 10.2 mg/dl Low 08-04-2018 [facility] (61480) Comment: Performed By: #### [id number] #### [facility],[address] [place] [address] Chloride molar conc 107 98 - 107 mmol/L Normal 08-04-2018 [facility] (89497) Comment: Performed By: #### [id number] #### [facility],[address] [place] [address]94 CO2 molar conc 26.2 21.0 - 31.0 mmol/L Normal 08-04-2018 [facility] (36388) Comment: Performed By: #### [id number] #### [facility],[address] [place] [address] Creatinine mass conc 0.6 0.6 - 1.2 mg/dl Normal 08-04-2018 [facility] (49839) Comment: Performed By: #### [id number] #### [facility],[address] [place] [address] GFR/1.73 sq M >60 60 - 999 mL/min/{1.73_m2} Normal 08-04-2018 [facility] predicted among [facility] non-blacks MDRD vol (30612) rate/area (S/P/Bld) Comment: Performed By: #### [id number] #### [facility],[address] [place] [address] Result Comment: ACCORDING TO THE NATIONAL KIDNEY DISEASE EDUCATION PROGRAM(NKDE), A NORMAL eGFR IS A VALUE GREATER THAN OR EQUAL TO 60 ML/MIN/1.73 SQ METERS. CHRONIC KIDNEY DISEASE: <60mL/MIN/1.73 SQ METERS KIDNEY FAILURE: <15mL/MIN/1.73 SQ METERS THIS TEST SHOULD ONLY BE USED FOR PATIENTS 18 YEARS OF AGE AND OLDER. GFR/1.73 sq M predicted among Normal 08-04-2018 [facility] non-blacks MDRD vol rate/area Hospital (60771) (S/P/Bld) Comment: Result Comment: BASIC METABOLIC PANEL Performed By: #### [id number] #### [facility],[address] [place] [address] Glucose mass conc 107 74 - 106 mg/dl High 08-04-2018 [facility] (78130) Comment: Performed By: #### [id number] #### [facility],[address] [place] [address] Potassium molar conc 3.2 3.5 - 5.1 mmol/L Low 08-04-2018 [facility] (94135) Comment: Performed By: #### [id number] #### [facility],[address] [place] [address] Sodium molar conc 139 136 - 145 mmol/l Normal 08-04-2018 [facility] (85746) Comment: Performed By: #### [id number] #### [facility],[address] [place] [address] Urea nitrogen mass conc 8 6 - 20 mg/dl Normal 08-04-2018 [facility] (03270) Comment: Performed By: #### 536146 #### [facility],[address] [place] [address] cbc on 2018-02-20 Basophils #/vol (Bld) 0.00 0.00 - 0.10 x10EE3/UL Normal 02-20-2018 [facility] (86972) Comment: Performed By: #### [id number] #### [address] [address] Basophils/100 WBC (Bld) 0.2 0.0 - 2.0 % Normal 02-20-2018 [facility] (10341) Comment: Performed By: #### [id number] #### [address] [address] CBC Normal 02-20-2018 [facility] (11766) Comment: Result Comment: CBC-COMPLETE BLOOD COUNT Performed By: #### [id number] #### [address] [address] Eosinophils #/vol 0.00 0.00 - 0.50 x10EE3/UL Normal 02-20-2018 [facility] ([facility]) [facility] (16645) Comment: Performed By: #### [id number] #### [address] [address] Eosinophils/100 WBC (Bld) 0.0 0.0 - 7.0 % Normal 02-20-2018 [facility] (66806) Comment: Performed By: #### [id number] #### [address] [address] Erythrocyte distribution 14.0 12.0 - 15.6 % Normal 02-20-2018 [facility] width Ratio (RBC) Hospital (56863) Comment: Performed By: #### [id number] #### [address] [address] Hematocrit Volume 41.5 34.0 - 46.0 % Normal 02-20-[address] [facility] ([facility]) [facility] (67541) Comment: Performed By: #### [id number] #### [facility],[address] [place] [address]853 Hemoglobin mass conc 13.8 12.0 - 16.0 g/dl Normal 02-20-2018 [facility] (30935) Comment: Performed By: #### [id number] #### [address] [address] Lymphocytes #/vol 1.20 0.80 - 2.80 x10EE3/UL Normal 02-20-2018 [facility] (33870) Comment: Performed By: #### [id number] #### [address] [address] Lymphocytes/100 WBC ([facility]) 7.4 20.0 - 45.0 % Low 02-20-2018 [facility] (48633) Comment: Performed By: #### [id number] #### [address] [address] MANUAL DIFF N/A Normal 02-20-2018 [facility] (54544) Comment: Performed By: #### [id number] #### [address] [address] MCH Entitic mass (RBC) 31 27 - 33 pg Normal 02-20-2018 [facility] (20443) Comment: Performed By: #### [id number] #### [address] [address] MCHC mass conc (RBC) 33 32 - 36 X10 3 Normal 02-20-2018 [facility] (04480) Comment: Performed By: #### [id number] #### [facility],[address] [place] [address] MCV Entitic volume (RBC) 92 80 - 99 fl Normal 02-20-2018 [facility] (38207) Comment: Performed By: #### [id number] #### [facility],[address] [place] [address]694 Monocytes #/vol (Bld) 0.50 0.20 - 1.00 x10EE3/UL Normal 02-20-2018 [facility] (01222) Comment: Performed By: #### [id number] #### [address] [address] MONOS % 3.1 0.0 - 10.0 % Normal 02-20-2018 [facility] (59978) Comment: Performed By: #### [id number] #### [facility],[address] [place] [address]164 Morphology Interp Felipe (Bld) N/A Normal 02-20-2018 [facility] (87916) Comment: Result Comment: {CD] Performed By: #### [id number] #### [address] [address] Neutrophils #/vol 14.90 1.50 - 7.10 x10EE3/UL High 02-20-2018 [facility] ([facility]) [facility] (11859) Comment: Performed By: #### [id number] #### [address] [address] Neutrophils/100 WBC (Bld) 89.3 46.0 - 76.0 % High 02-20-2018 [facility] (05177) Comment: Performed By: #### [id number] #### [facility],[address] [place] [address] Platelet mean volume 7.4 6.6 - 10.5 fl Normal 02-20-2018 [facility] (83338) Comment: Result Comment: AUTOMATED DIFFERENTIAL Performed By: #### [id number] #### [facility],[address] [place] [address]2751 Platelets #/vol ([facility]) 404 150 - 450 x10EE3/UL Normal 02-20-2018 [facility] (53878) Comment: Performed By: #### [id number] #### [address] [address] RBC #/vol ([facility]) 4.52 4.10 - 5.30 x 10EE6/UL Normal 02-20-2018 [facility] (32268) Comment: Performed By: #### [id number] #### [facility],[address] [place] [address] WBC #/vol ([facility]) 16.7 4.5 - 10.8 x 10EE3/UL High 02-20-2018 [facility] (56967) Comment: Performed By: #### [id number] #### [facility],[address] [place] [address] d-dimer, quantitative on 2018-08-01 D-DIMER QUANT 273 0 - 230 ng/ml High 08-01-2018 [facility] (84934) Comment: Performed By: #### [id number] ####[address] [address] D-DIMER, QUANTITATIVE Normal 08-01-2018 [facility] (63475) Comment: Result Comment: QUANT D-DIMER Performed By: #### [id number] ####[address] [address] troponin on 2018-08-01 Troponin I.cardiac <0.01 0.00 - 0.05 ng/mL Normal 08-01-2018 [facility] (35590) Comment: Result Comment: Elevated troponin (above the 99th [...] such as heterophile antibodies). Performed By: #### [id number] ####[address] [address] bmp with egfr on 2018-08-03 Age Reported 67 years Normal 08-03-2018 [facility] (96882) Comment: Performed By: #### [id number] #### [address] [address] Anion gap molar conc 9 10 - 20 mmol/L Low 08-03-2018 [facility] (14729) Comment: Performed By: #### [id number] #### [address] [address] Calcium mass conc 8.4 8.6 - 10.2 mg/dl Low 08-03-2018 [facility] (95381) Comment: Performed By: #### [id number] #### [address] [address] Chloride molar conc 109 98 - 107 mmol/L High 08-03-2018 [facility] (93761) Comment: Performed By: #### [id number] #### [address] [address] CO2 molar conc 24.0 21.0 - 31.0 mmol/L Normal 08-03-2018 [facility] (14754) Comment: Performed By: #### [id number] #### [address] [address] Creatinine mass conc 0.6 0.6 - 1.2 mg/dl Normal 08-03-2018 [facility] (72658) Comment: Performed By: #### [id number] #### [address] [place] [address] GFR/1.73 sq M >60 60 - 999 mL/min/{1.73_m2} Normal 08-03-2018 [facility] predicted among [facility] non-blacks MDRD vol (70313) rate/area (S/P/Bld) Comment: Result Comment: ACCORDING TO THE NATIONAL KIDNEY DISEASE EDUCATION PROGRAM(NKDE), A NORMAL eGFR IS A VALUE GREATER THAN OR EQUAL TO 60 ML/MIN/1.73 SQ METERS. CHRONIC KIDNEY DISEASE: <60mL/MIN/1.73 SQ METERS KIDNEY FAILURE: <15mL/MIN/1.73 SQ METERS THIS TEST SHOULD ONLY BE USED FOR PATIENTS 18 YEARS OF AGE AND OLDER. Performed By: #### [id number] #### [address] [address] GFR/1.73 sq M predicted among Normal 08-03-2018 [facility] non-blacks MDRD vol rate/area Hospital (93404) (S/P/Bld) Comment: Result Comment: BASIC METABOLIC PANEL Performed By: #### [id number] #### [address] [address] Glucose mass conc 152 74 - 106 mg/dl High 08-03-2018 [facility] (01035) Comment: Performed By: #### [id number] #### [address] [address] Potassium molar conc 3.5 3.5 - 5.1 mmol/L Normal 08-03-2018 [facility] (12653) Comment: Performed By: #### 446506 #### [address] [address] Sodium molar conc 138 136 - 145 mmol/l Normal 08-03-2018 [facility] (78306) Comment: Performed By: #### 442134 #### [address] [address] Urea nitrogen mass conc 10 6 - 20 mg/dl Normal 08-03-2018 [facility] (33298) Comment: Performed By: #### [id number] #### [facility],[address] [place] [address] culture sputum on 2018-08-02 CULTURE CULTURE SPUTUM Normal 08-02-2018 Tomas SPUTUM _SPUTUM CULTURE_ [place] SPUTUM SPECIMEN EXAMINATION [facility] ? (24352) GRAM STAIN AMOUNT AND DESCRIPTION _MODERATE_WBC'S 08/02/18.172.WKK. _FEW_EPI_CELLS 08/02/18.WKK. _FEW_GRAM_POSITIVE_COCCI 08/02/18.1721.WKK. M I C R O B I O L O G Y R E P O R T FINAL Antimicrobial Susceptibility and Organism Identification Report Specimen Number : [id number] Requested : 08/02/18 Specimen Source : SPUTUM Collected : 08/02/18 15:32 [place] of Isolation : Med/Surg Received : 08/02/18 15:32 Requesting Physician : YAMILEX PHYSICIAN Patient/Specimen Tests and Comments Specimen Comments FINAL REPORT: ABUNDANT GROWTH Yeast-No ID unless requested Tech : Source : SPUTUM ID # : [id number] FINAL Report Date : / / : Collected : 08/02/18 15:32 08/04/18.JLN. 08/03/18.JLN. 08/04/18.JLN.COMPLETE Comment: Performed By: #### [id number] #### [facility],[address] [place] [address] 13154 cbc on 2018-08-02 Basophils #/vol (Bld) 0.00 0.00 - 0.10 x10EE3/UL Normal 08-02-2018 [facility] (55431) Comment: Performed By: #### [id number] ####[address] [address] Basophils/100 WBC (Bld) 0.0 0.0 - 2.0 % Normal 08-02-2018 [facility] (27139) Comment: Performed By: #### [id number] ####[address] [address] CBC Normal 08-02-2018 [facility] (55959) Comment: Result Comment: CBC-COMPLETE BLOOD COUNT Performed By: #### [id number] ####[address] [address] Eosinophils #/vol 0.00 0.00 - 0.50 x10EE3/UL Normal 08-02-2018 [facility] (27002) Comment: Performed By: #### [id number] ####[address] [address] Eosinophils/100 WBC (Bld) 0.0 0.0 - 7.0 % Normal 08-02-2018 [facility] (49203) Comment: Performed By: #### [id number] ####[place] [id number] Erythrocyte distribution 14.0 12.0 - 15.6 % Normal 08-02-2018 [facility] width Ratio (RBC) [facility] (95913) Comment: Performed By: #### [id number] ####[place] [id number] Hematocrit Volume 39.1 34.0 - 46.0 % Normal 08-02-[address] [facility] ([facility]) [facility] (92322) Comment: Performed By: #### [id number] ####[place] [id number] Hemoglobin mass conc 13.1 12.0 - 16.0 g/dl Normal 08-02-2018 [facility] ([facility] (07794) Comment: Performed By: #### [id number] ####[facility],[address] [place] [address]200 Lymphocytes #/vol (Bld) 0.50 0.80 - 2.80 x10EE3/UL Low 08-02-2018 [facility] (25617) Comment: Performed By: #### [id number] ####[facility],[address] [place] [address]241 Lymphocytes/100 WBC (Bld) 3.2 20.0 - 45.0 % Low 08-02-2018 [facility] (02432) Comment: Performed By: #### [id number] ####[address] [address] MANUAL DIFF N/A Normal 08-02-2018 [facility] (99524) Comment: Performed By: #### 195401 ####[address] [address] MCH Entitic mass (RBC) 30 27 - 33 pg Normal 08-02-2018 [facility] (82579) Comment: Performed By: #### [id number] ####[address] [address] MCHC mass conc (RBC) 33 32 - 36 X10 3 Normal 08-02-2018 [facility] (02739) Comment: Performed By: #### [id number] ####[address] [address] MCV Entitic volume (RBC) 88 80 - 99 fl Normal 08-02-2018 [facility] (36578) Comment: Performed By: #### [id number] ####[address] [address] Monocytes #/vol (Bld) 0.30 0.20 - 1.00 x10EE3/UL Normal 08-02-2018 [facility] (71932) Comment: Performed By: #### [id number] ####[address] [address] MONOS % 1.9 0.0 - 10.0 % Normal 08-02-2018 [facility] (19280) Comment: Performed By: #### 739324 ####[address] [address] Morphology Interp Felipe (Bld) N/A Normal 08-02-2018 [facility] (91327) Comment: Result Comment: {CD] Performed By: #### [id number] ####[place] [id number] Neutrophils #/vol 15.10 1.50 - 7.10 x10EE3/UL High 08-02-2018 [facility] ([facility]) [facility] (80659) Comment: Performed By: #### [id number] ####[address] [address] Neutrophils/100 WBC (Bld) 94.9 46.0 - 76.0 % High 08-02-2018 [facility] (79625) Comment: Performed By: #### [id number] ####[address] [address] Platelet mean volume 7.7 6.6 - 10.5 fl Normal 08-02-2018 [facility] ([facility]) [facility] (30773) Comment: Result Comment: AUTOMATED DIFFERENTIAL Performed By: #### [id number] ####[address] [address] Platelets #/vol (d) 280 150 - 450 x10EE3/UL Normal 08-02-2018 [facility] (71234) Comment: Performed By: #### [id number] ####[address] [address] RBC #/vol (Bld) 4.42 4.10 - 5.30 x 10EE6/UL Normal 08-02-2018 [facility] (31915) Comment: Performed By: #### [id number] ####[address] [place] [address] WBC #/vol (Bld) 15.9 4.5 - 10.8 x 10EE3/UL High 08-02-2018 [facility] (06292) Comment: Performed By: #### [id number] ####[facility],[address] [place] [address] bmp with egfr on 2018-02-18 Age Reported 67 years Normal 02-18-2018 [facility] (38198) Comment: Performed By: #### [id number] #### [facility],[address] [place] [address] 24954 Anion gap molar conc 13 10 - 20 mmol/L Normal 02-18-2018 [facility] (27895) Comment: Performed By: #### [id number] #### [address] [address] Calcium mass conc 9.4 8.6 - 10.2 mg/dl Normal 02-18-2018 [facility] (86871) Comment: Performed By: #### [id number] #### [address] [address] Chloride molar conc 106 98 - 107 mmol/L Normal 02-18-2018 [facility] (41366) Comment: Performed By: #### [id number] #### [address] [address] CO2 molar conc 23.3 21.0 - 31.0 mmol/L Normal 02-18-2018 [facility] (08007) Comment: Performed By: #### [id number] #### [address] [address] Creatinine mass conc 0.6 0.6 - 1.2 mg/dl Normal 02-18-2018 [facility] (66270) Comment: Performed By: #### [id number] #### [address] [address] GFR/1.73 sq M predicted 99 60 - 999 ML/MINUTE Normal 02-18-2018 [facility] among non-blacks [facility] vol rate/area (S/P/Bld) (80861) Comment: Performed By: #### [id number] #### [facility],[address] [place] [address]26 GFR/1.73 sq M predicted among Normal 02-18-2018 [facility] non-blacks [facility] vol rate/area Hospital (25302) (S/P/Bld) Comment: Result Comment: BASIC METABOLIC PANEL Performed By: #### [id number] #### [facility],[address] [place] [address] GFR/1.73 sq M predicted 120 60 - 999 ML/MINUTE Normal 02-18-2018 [facility] among non-blacks [facility] vol rate/area (S/P/Bld) (48904) Comment: Result Comment: ACCORDING TO THE NATIONAL KIDNEY DISEASE EDUCATION PROGRAM(NKDE), A NORMAL eGFR IS A VALUE GREATER THAN OR EQUAL TO 60 ML/MIN/1.73 SQ METERS. CHRONIC KIDNEY DISEASE: <60mL/MIN/1.73 SQ METERS KIDNEY FAILURE: <15mL/MIN/1.73 SQ METERS THIS TEST SHOULD ONLY BE USED FOR PATIENTS 18 YEARS OF AGE AND OLDER. Performed By: #### [id number] #### [facility],[address] [place] [address]70 Glucose mass conc 158 74 - 106 mg/dl High 02-18-2018 [facility] (58491) Comment: Performed By: #### [id number] #### [facility],[address] [place] [address]24 Potassium molar conc 3.6 3.5 - 5.1 mmol/L Normal 02-18-2018 [facility] (51662) Comment: Performed By: #### [id number] #### [facility],[address] [place] [address]120 Sodium molar conc 139 136 - 145 mmol/l Normal 02-18-2018 [facility] (88955) Comment: Performed By: #### [id number] #### [facility],[address] [place] [address] 33547 Urea nitrogen mass conc 8 6 - 20 mg/dl Normal 02-18-2018 [facility] (24260) Comment: Performed By: #### [id number] #### [facility],[address] [place] [address]154 final surgical pathology report on 2018-04-17 Final Surgical . Pathology ReportsAccession: Normal 04-17-2018 [facility] Pathology Collected Date/Time: Received [facility] Report Date/Time: ([place]) ([id number]) Pathologist:[id number] 04/13/2018 07:22 EDT 04/14/2018 07:22 EDT DO GLO THORNTON Final Surgical Pathology ReportDIAGNOSIS:A) HYPERPLASTIC POLYP, SIGMOID COLON.B) RANDOM SIGMOID COLON BIOPSIES: - ISCHEMIC COLITIS.C) HYPERPLASTIC POLYP, RECTOSIGMOID.COMMENT:[facility]# [id number] INFORMATION:SCREENINGSPECIMEN:A POLYP, SIGMOIDB COLON, BX - RANDOM SIGMOIDC POLYP, RECTOSIGMOIDGROSS DESCRIPTION:A. Received in formalin labeled sigmoid is a 0.3 cm gomez glistening soft tissue. TS -1B. Received in formalin labeled random sigmoid biopsy is a 0.2 cm gomez glistening soft tissue. TS -1C. Received in formalin labeled rectosigmoid is a 0.3 cm gomez glistening, semitranslucent soft tissue. TS -1Dictated by DANA ANTUNEZ ([facility])MICROSCOPIC DESCRIPTION:Slides reviewed.Electronically Signed byPathology Report verified by [facility] HospitalElectronically signed by GLO THORNTON DOSign out Date: 04/17/2018 10:12Performing Lab: [facility], [address] [place] [address] Comment: Performed By: #### SPFR ####[facility] [place] [address] cbc on 2018-08-01 Basophils #/vol (Bld) 0.10 0.00 - 0.10 x10EE3/UL Normal 08-01-2018 [facility] (98273) Comment: Performed By: #### [id number] ####[facility],[address] [place] [address] Basophils/100 WBC (Bld) 0.6 0.0 - 2.0 % Normal 08-01-2018 [facility] (75419) Comment: Performed By: #### [id number] ####[address] [address] CBC Normal 08-01-2018 [facility] (66540) Comment: Result Comment: CBC-COMPLETE BLOOD COUNT Performed By: #### [id number] ####[address] [address] Eosinophils #/vol 0.00 0.00 - 0.50 x10EE3/UL Normal 08-01-2018 [facility] (00188) Comment: Performed By: #### [id number] ####[address] [address] Eosinophils/100 WBC (Bld) 0.2 0.0 - 7.0 % Normal 08-01-2018 [facility] (83256) Comment: Performed By: #### [id number] ####[place] [id number] Erythrocyte distribution 14.2 12.0 - 15.6 % Normal 08-01-2018 [facility] width Ratio (RBC) [facility] (86268) Comment: Performed By: #### [id number] ####[place] [id number] Hematocrit Volume 40.2 34.0 - 46.0 % Normal 08-01-[address] [facility] ([facility] (79183) Comment: Performed By: #### [id number] ####[place] [id number] Hemoglobin mass conc 13.7 12.0 - 16.0 g/dl Normal 08-01-2018 [facility] (12460) Comment: Performed By: #### [id number] ####[facility],[address] [place] [address] Lymphocytes #/vol 1.00 0.80 - 2.80 x10EE3/UL Normal 08-01-2018 [facility] ([facility]) [facility] (70259) Comment: Performed By: #### [id number] ####[address] [address] Lymphocytes/100 WBC (Bld) 5.0 20.0 - 45.0 % Low 08-01-2018 [facility] (04304) Comment: Performed By: #### [id number] ####[address] [address] MANUAL DIFF N/A Normal 08-01-2018 [facility] (77135) Comment: Performed By: #### 140361 ####[address] [address] MCH Entitic mass (RBC) 30 27 - 33 pg Normal 08-01-2018 [facility] (60379) Comment: Performed By: #### [id number] ####[address] [address] MCHC mass conc (RBC) 34 32 - 36 X10 3 Normal 08-01-2018 [facility] (89528) Comment: Performed By: #### 132219 ####[address] [address] MCV Entitic volume (RBC) 88 80 - 99 fl Normal 08-01-2018 [facility] (87758) Comment: Performed By: #### [id number] ####[address] [address] Monocytes #/vol (Bld) 1.30 0.20 - 1.00 x10EE3/UL High 08-01-2018 [facility] (17658) Comment: Performed By: #### [id number] ####[address] [address] MONOS % 6.5 0.0 - 10.0 % Normal 08-01-2018 [facility] (87141) Comment: Performed By: #### [id number] ####[facility],[address] [place] [address] Morphology Interp Felipe (Bld) N/A Normal 08-01-2018 [facility] (41700) Comment: Result Comment: {CD] Performed By: #### [id number] ####[place] [address] Neutrophils #/vol 17.40 1.50 - 7.10 x10EE3/UL High 08-01-2018 [facility] ([facility]) [facility] (06736) Comment: Performed By: #### [id number] ####[place] [id number] Neutrophils/100 WBC (Bld) 87.7 46.0 - 76.0 % High 08-01-2018 [facility] (83815) Comment: Performed By: #### 145537 ####[place] [address] Platelet mean volume 7.3 6.6 - 10.5 fl Normal 08-01-2018 [facility] ([facility]) [facility] (83649) Comment: Result Comment: AUTOMATED DIFFERENTIAL Performed By: #### [id number] ####[address] [address] Platelets #/vol (d) 307 150 - 450 x10EE3/UL Normal 08-01-2018 [facility] (95532) Comment: Performed By: #### 919752 ####[address] [address] RBC #/vol (Bld) 4.57 4.10 - 5.30 x 10EE6/UL Normal 08-01-2018 [facility] (98971) Comment: Performed By: #### 137271 ####[place] [address],[place] [address] WBC #/vol (Bld) 19.8 4.5 - 10.8 x 10EE3/UL High 08-01-2018 [facility] (07771) Comment: Performed By: #### 100283 ####[facility],[address] [place] [address] chest (pe protocol) on 2018-08-01 Protein mass conc [facility] Normal 08-01-[address] [address] (15307) Patient: ASHLEY MARIE Phone#: : 1950 Age: 67 Gender: F Pt. Type: ER Account: [id number] Location: [facility] Ordering: PETERSON KEITA Exam Date: 08/01/2018/21:40 Family Phys: KAVITA IVEY Charge Code: 761577 Physician: [place] Order #: [id number] DLP Dose#: 6.10 PROCEDURE: CT CHEST WITH CONTRAST FOR PE COMPARISON: [facility], XR, CHEST 2 VIEWS, 08/01/2018, 19:31. [facility], CT, CHEST PE W [...] 67 Gender: F Pt. Type: ER Account: [id number] Location: 052 Ordering: PETERSON KEITA Exam Date: 08/01/2018/21:40 Family Phys: KAVITA IVEY Charge Code: 841925 Physician: [place] Order #: [id number] DLP Dose#: 6.10 LIMITED ABDOMEN: Normal. Limited images of the upper abdomen are unremarkable. BONES: Wedge shaped deformity of T11. OTHER: Negative. CONCLUSION: 1. Right middle and upper lobe infiltrates at the lung base, corresponding to radiographic finding. Recommend followup to clearing. 2. No pulmonary embolism. Dictated by: Tea Oneill MD on 08/01/2018 at 22:10 Approved by: Tea Onelil MD on 08/01/2018 at 22:10 troponin on 2018-02-17 Troponin I.cardiac mass 0.01 0.00 - 0.05 ng/ml Normal 02-17-2018 [facility] (20843) Comment: Result Comment: Elevated troponin (above the 99th [...] such as heterophile antibodies). Performed By: #### [id number] #### [facility],[address] [place] [address] bmp with egfr on 2018-02-20 Age Reported 67 years Normal 02-20-2018 [facility] (23112) Comment: Performed By: #### [id number] #### [facility],[address] [place] [address] Anion gap molar conc 13 10 - 20 mmol/L Normal 02-20-2018 [facility] (28107) Comment: Performed By: #### 440903 #### [facility],[address] [place] [address] Calcium mass conc 9.4 8.6 - 10.2 mg/dl Normal 02-20-2018 [facility] (74195) Comment: Performed By: #### 042010 #### [address] [address] Chloride molar conc 100 98 - 107 mmol/L Normal 02-20-2018 [facility] (65288) Comment: Performed By: #### [id number] #### [address] [address] CO2 molar conc 28.7 21.0 - 31.0 mmol/L Normal 02-20-2018 [facility] (68700) Comment: Performed By: #### 406093 #### [address] [address] Creatinine mass conc 0.7 0.6 - 1.2 mg/dl Normal 02-20-2018 [facility] (04498) Comment: Performed By: #### [id number] #### [address] [address] GFR/1.73 sq M >60 60 - 999 mL/min/{1.73_m2} Normal 02-20-2018 [facility] non-blacks MDRD vol (17441) rate/area (S/P/Bld) Comment: Result Comment: ACCORDING TO THE NATIONAL KIDNEY DISEASE EDUCATION PROGRAM(NKDE), A NORMAL eGFR IS A VALUE GREATER THAN OR EQUAL TO 60 ML/MIN/1.73 SQ METERS. CHRONIC KIDNEY DISEASE: <60mL/MIN/1.73 SQ METERS KIDNEY FAILURE: <15mL/MIN/1.73 SQ METERS THIS TEST SHOULD ONLY BE USED FOR PATIENTS 18 YEARS OF AGE AND OLDER. Performed By: #### [id number] #### [address] [address] GFR/1.73 sq M predicted among Normal 02-20-2018 [facility] non-blacks MDRD vol rate/area Hospital (16119) (S/P/Bld) Comment: Result Comment: BASIC METABOLIC PANEL Performed By: #### [id number] #### [facility],[address] [place] [address] Glucose mass conc 163 74 - 106 mg/dl High 02-20-2018 [facility] (29181) Comment: Performed By: #### 164617 #### [address] [address] Potassium molar conc 3.2 3.5 - 5.1 mmol/L Low 02-20-2018 [facility] (51489) Comment: Performed By: #### [id number] #### [facility],[address] [place] [address] Sodium molar conc 138 136 - 145 mmol/l Normal 02-20-2018 [facility] (28724) Comment: Performed By: #### [id number] #### [address] [address] Urea nitrogen mass conc 11 6 - 20 mg/dl Normal 02-20-2018 [facility] (34666) Comment: Performed By: #### [id number] #### [facility],[address] [place] [address] emergency report on 2018-02-20 EMERGENCY REPORT [facility] Normal 02-20-2018 [facility] EMERGENCY ROOM REPORT Hospital (27497) NAME ACCOUNT SEX AGE ADMIT DISCHARGE TYPE MED. RECORD# NUMBER DATE DATE ASHLEY MARIE [id number] F 67 02/17/18 1 [id number] ROOM: [facility] DATE OF : 1950 PHYSICIAN: Sarah Daniel [...] Daniel DO TD: 02/17/18 16:20 JOB #: [id number] Transcribed by: sharron Electronically signed by: E-Sign: Dr. Sarah Daniel D.O. 02/20/18 05:54 Page 2 of 2 ASHLEY MARIE Mikey Emergency Room Report progress note on 2018-02-28 Protein mass [facility] Normal 02-28-2018 [facility] PROGRESS NOTE (43286) NAME ACCOUNT SEX AGE ADMIT DISCHARGE TYPE MED. RECORD# NUMBER DATE DATE ASHLEY MARIE [id number] F 67 02/17/18 1 [id number] ROOM: [facility] DATE OF : 1950 DICTATING PHYSICIAN: Kavita [...] Ivey MD TD: 02/19/18 21:21 JOB #: [id number] Transcribed by: wilberto Electronically signed by: GIOVANNI IVEY MD 02/27/18 22:05 Page 1 of 1 ASHLEY Progress Note Protein mass [facility] Normal 02-28-2018 [facility] PROGRESS NOTE (09950) NAME ACCOUNT SEX AGE ADMIT DISCHARGE TYPE MED. RECORD# NUMBER DATE DATE ASHLEY [id number] F 67 02/17/18 1 [id number] ROOM: [facility] DATE OF : 1950 DICTATING PHYSICIAN: Kavita [...] Ivey MD TD: 02/18/18 20:26 JOB #: [id number] Transcribed by: sharron Page 1 of 2 ASHLEY MARIE Progress Note Electronically signed by: GIOVANNI IVEY MD 02/27/18 22:03 Page 2 of 2 ASHLEY MARIE Progress Note cbc on 2018-02-19 Basophils #/vol (Bld) 0.00 0.00 - 0.10 x10EE3/UL Normal 02-19-2018 [facility] (98430) Comment: Performed By: #### [id number] #### [facility],[address] [place] [address] Basophils/100 WBC (Bld) 0.2 0.0 - 2.0 % Normal 02-19-2018 [facility] (50883) Comment: Performed By: #### [id number] #### [facility],[address] [place] [address] CBC Normal 02-19-2018 [facility] (24752) Comment: Result Comment: CBC-COMPLETE BLOOD COUNT Performed By: #### [id number] #### [facility],[address] [place] [address] Eosinophils #/vol 0.00 0.00 - 0.50 x10EE3/UL Normal 02-19-2018 [facility] ([facility] (87395) Comment: Performed By: #### [id number] #### [facility],[address] [place] [address] Eosinophils/100 WBC (Bld) 0.0 0.0 - 7.0 % Normal 02-19-2018 [facility] (82087) Comment: Performed By: #### [id number] #### [facility],[address] [place] [address] Erythrocyte distribution 14.0 12.0 - 15.6 % Normal 02-19-2018 [facility] width Ratio (RBC) Hospital (70064) Comment: Performed By: #### [id number] #### [address] [address] Hematocrit Volume 36.1 34.0 - 46.0 % Normal 02-19-[address] [facility] ([facility]) [facility] (27224) Comment: Performed By: #### 636507 #### [address] [address] Hemoglobin mass conc 12.2 12.0 - 16.0 g/dl Normal 02-19-2018 [facility] ([facility]) [facility] (61267) Comment: Performed By: #### 138505 #### [address] [address] Lymphocytes #/vol 0.80 0.80 - 2.80 x10EE3/UL Normal 02-19-2018 [facility] ([facility] (95863) Comment: Performed By: #### [id number] #### [address] [address] Lymphocytes/100 WBC ([facility]) 5.7 20.0 - 45.0 % Low 02-19-2018 [facility] (73194) Comment: Performed By: #### [id number] #### [facility],[address] [place] [address] MANUAL DIFF N/A Normal 02-19-2018 [facility] (36762) Comment: Performed By: #### [id number] #### [address] [address] MCH Entitic mass (RBC) 31 27 - 33 pg Normal 02-19-2018 [facility] (27031) Comment: Performed By: #### 488494 #### [address] [address] MCHC mass conc (RBC) 34 32 - 36 X10 3 Normal 02-19-2018 [facility] (63251) Comment: Performed By: #### 082710 #### [address] [address] MCV Entitic volume (RBC) 92 80 - 99 fl Normal 02-19-2018 [facility] (66394) Comment: Performed By: #### 966404 #### [address] [address] Monocytes #/vol (Bld) 0.60 0.20 - 1.00 x10EE3/UL Normal 02-19-2018 [facility] (81612) Comment: Performed By: #### [id number] #### [place] [id number] MONOS % 3.9 0.0 - 10.0 % Normal 02-19-2018 [facility] (59839) Comment: Performed By: #### [id number] #### [address] [address] Morphology Interp Felipe (Bld) N/A Normal 02-19-2018 [facility] (55804) Comment: Result Comment: {CD] Performed By: #### [id number] #### [address] [address] Neutrophils #/vol 12.90 1.50 - 7.10 x10EE3/UL High 02-19-2018 [facility] (Bld) [facility] (66402) Comment: Performed By: #### 604645 #### [address] [address] Neutrophils/100 WBC (Bld) 90.2 46.0 - 76.0 % High 02-19-2018 [facility] (68409) Comment: Performed By: #### [id number] #### [place] [address],[place] [address] Platelet mean volume 7.7 6.6 - 10.5 fl Normal 02-19-2018 [facility] Entitic volume (Bld) Hospital (90619) Comment: Result Comment: AUTOMATED DIFFERENTIAL Performed By: #### 559374 #### [facility],[address] [place] [address] Platelets #/vol (Bld) 330 150 - 450 x10EE3/UL Normal 02-19-2018 [facility] (48555) Comment: Performed By: #### [id number] #### [facility],[address] [place] [address]71 RBC #/vol (Bld) 3.93 4.10 - 5.30 x 10EE6/UL Low 02-19-2018 [facility] (21184) Comment: Performed By: #### [id number] #### [facility],[address] [place] [address] 13469 WBC #/vol (d) 14.3 4.5 - 10.8 x 10EE3/UL High 02-19-2018 [facility] (29475) Comment: Performed By: #### [id number] #### [facility],[address] [place] [address] bmp with egfr on 2018-02-19 Age Reported 67 years Normal 02-19-2018 [facility] (53809) Comment: Performed By: #### [id number] #### [facility],[address] [place] [address] 67861 Anion gap molar conc 10 10 - 20 mmol/L Normal 02-19-2018 [facility] (74469) Comment: Performed By: #### [id number] #### [facility],[address] [place] [address]2533 Calcium mass conc 9.0 8.6 - 10.2 mg/dl Normal 02-19-2018 [facility] (08241) Comment: Performed By: #### [id number] #### [facility],[address] [place] [address] 55860 Chloride molar conc 107 98 - 107 mmol/L Normal 02-19-2018 [facility] (99168) Comment: Performed By: #### 604234 #### [facility],[address] [place] [address]12[address] CO2 molar conc 26.7 21.0 - 31.0 mmol/L Normal 02-19-2018 [facility] (57954) Comment: Performed By: #### [id number] #### [facility],[address] [place] [address]486 Creatinine mass conc 0.6 0.6 - 1.2 mg/dl Normal 02-19-2018 [facility] (04236) Comment: Performed By: #### [id number] #### [address] [address] GFR/1.73 sq M predicted among Normal 02-19-2018 [facility] non-blacks MDRD vol rate/area Hospital (93854) (S/P/Bld) Comment: Result Comment: BASIC METABOLIC PANEL Performed By: #### [id number] #### [address] [address] GFR/1.73 sq M >60 60 - 999 mL/min/{1.73_m2} Normal 02-19-2018 [facility] predicted among [facility] non-blacks MDRD vol (26532) rate/area (S/P/Bld) Comment: Performed By: #### [id number] #### [address] [address] Result Comment: ACCORDING TO THE NATIONAL KIDNEY DISEASE EDUCATION PROGRAM(NKDE), A NORMAL eGFR IS A VALUE GREATER THAN OR EQUAL TO 60 ML/MIN/1.73 SQ METERS. CHRONIC KIDNEY DISEASE: <60mL/MIN/1.73 SQ METERS KIDNEY FAILURE: <15mL/MIN/1.73 SQ METERS THIS TEST SHOULD ONLY BE USED FOR PATIENTS 18 YEARS OF AGE AND OLDER. Glucose mass conc 148 74 - 106 mg/dl High 02-19-2018 [facility] (23845) Comment: Performed By: #### [id number] #### [address] [address] Potassium molar conc 3.8 3.5 - 5.1 mmol/L Normal 02-19-2018 [facility] (87071) Comment: Performed By: #### [id number] #### [address] [address] Sodium molar conc 140 136 - 145 mmol/l Normal 02-19-2018 [facility] (27250) Comment: Performed By: #### 477194 #### [address] [address] Urea nitrogen mass conc 8 6 - 20 mg/dl Normal 02-19-2018 [facility] (68901) Comment: Performed By: #### [id number] #### [address] [address] cbc on 2018-02-18 Basophils #/vol (Bld) 0.00 0.00 - 0.10 x10EE3/UL Normal 02-18-2018 [facility] (23703) Comment: Performed By: #### [id number] #### [address] [address] Basophils/100 WBC (Bld) 0.5 0.0 - 2.0 % Normal 02-18-2018 [facility] (96358) Comment: Performed By: #### [id number] #### [address] [address] CBC Normal 02-18-2018 [facility] (04892) Comment: Result Comment: CBC-COMPLETE BLOOD COUNT Performed By: #### [id number] #### [address] [address] Eosinophils #/vol 0.00 0.00 - 0.50 x10EE3/UL Normal 02-18-2018 [facility] (50801) Comment: Performed By: #### [id number] #### [facility],[address] [place] [address] Eosinophils/100 WBC ([facility]) 0.0 0.0 - 7.0 % Normal 02-18-2018 [facility] (19474) Comment: Performed By: #### [id number] #### [facility],[address] [place] [address] Erythrocyte distribution 14.1 12.0 - 15.6 % Normal 02-18-2018 [facility] width Ratio (RBC) [facility] (03358) Comment: Performed By: #### [id number] #### [facility],[address] [place] [address]263 Hematocrit Volume 38.5 34.0 - 46.0 % Normal 02-18-[address] [facility] ([facility] (84954) Comment: Performed By: #### [id number] #### [address] [address] Hemoglobin mass conc 13.2 12.0 - 16.0 g/dl Normal 02-18-2018 [facility] (50707) Comment: Performed By: #### [id number] #### [facility],[address] [place] [address]757 Lymphocytes #/vol 0.80 0.80 - 2.80 x10EE3/UL Normal 02-18-2018 [facility] (19260) Comment: Performed By: #### [id number] #### [address] [address] Lymphocytes/100 WBC ([facility]) 8.7 20.0 - 45.0 % Low 02-18-2018 [facility] (81311) Comment: Performed By: #### [id number] #### [facility],[address] [place] [address]471 MANUAL DIFF N/A Normal 02-18-2018 [facility] (31202) Comment: Performed By: #### [id number] #### [facility],[address] [place] [address] MCH Entitic mass (RBC) 31 27 - 33 pg Normal 02-18-2018 [facility] (71834) Comment: Performed By: #### [id number] #### [facility],[address] [place] [address] MCHC mass conc (RBC) 34 32 - 36 X10 3 Normal 02-18-2018 [facility] (42590) Comment: Performed By: #### 486254 #### [facility],[address] [place] [address] MCV Entitic volume (RBC) 91 80 - 99 fl Normal 02-18-2018 [facility] (90381) Comment: Performed By: #### [id number] #### [place] [address] Monocytes #/vol (Bld) 0.30 0.20 - 1.00 x10EE3/UL Normal 02-18-2018 [facility] (68439) Comment: Performed By: #### [id number] #### [place] [address] MONOS % 3.0 0.0 - 10.0 % Normal 02-18-2018 [facility] (51851) Comment: Performed By: #### [id number] #### [facility],[address] [place], [place] [address] Morphology Interp Felipe (Bld) N/A Normal 02-18-2018 [facility] [facility] (77056) Comment: Result Comment: {CD] Performed By: #### [id number] #### [place] [address] Neutrophils #/vol (Bld) 8.00 1.50 - 7.10 x10EE3/UL High 02-18-2018 [facility] (91002) Comment: Performed By: #### [id number] #### [facility],[address] [place] [address] Neutrophils/100 WBC (Bld) 87.8 46.0 - 76.0 % High 02-18-2018 [facility] (66712) Comment: Performed By: #### [id number] #### [address] [address] Platelet mean volume 7.9 6.6 - 10.5 fl Normal 02-18-2018 [facility] Entitic volume (Bld) Hospital (87165) Comment: Result Comment: AUTOMATED DIFFERENTIAL Performed By: #### [id number] #### [address] [address] Platelets #/vol (Bld) 301 150 - 450 x10EE3/UL Normal 02-18-2018 [facility] (35720) Comment: Performed By: #### [id number] #### [address] [address] RBC #/vol (Bld) 4.22 4.10 - 5.30 x 10EE6/UL Normal 02-18-2018 [facility] (13366) Comment: Performed By: #### [id number] #### [address] [address] WBC #/vol (Bld) 9.1 4.5 - 10.8 x 10EE3/UL Normal 02-18-2018 [facility] (60180) Comment: Performed By: #### [id number] #### [address] [address] lactate on 2018-02-17 Lactate molar conc 11.0 4.5 - 18.0 mg/dL Normal 02-17-2018 [facility] (25512) Comment: Performed By: #### [id number] #### [address] [address] cmp with egfr on 2018-02-17 Age Reported 67 years Normal 02-17-2018 [facility] (75670) Comment: Performed By: #### [id number] #### [facility],[address] [place] [address]219 Albumin mass conc 3.9 3.4 - 4.8 g/dL Normal 02-17-2018 [facility] (81106) Comment: Performed By: #### [id number] #### [facility],[address] [place] [address] 00174 Albumin/Globulin mass ratio 1.5 0.9 - 1.6 {ratio} Normal 02-17-2018 [facility] (82461) Comment: Performed By: #### [id number] #### [facility],[address] [place] [address] 70963 ALK PHOS 52 38 - 126 U/L Normal 02-17-2018 [facility] (89533) Comment: Performed By: #### [id number] #### [facility],[address] [place] [address] 65965 ALT/SGPT 15 8 - 35 U/L Normal 02-17-2018 [facility] (46575) Comment: Performed By: #### [id number] #### [address] [address] Anion gap molar conc 11 10 - 20 mmol/L Normal 02-17-2018 [facility] (65688) Comment: Performed By: #### [id number] #### [facility],[address] [place] [address] 73162 AST/SGOT 15 13 - 39 U/L Normal 02-17-2018 [facility] (57498) Comment: Performed By: #### [id number] #### [address] [address] B/C RATIO 17 0 - 30 ratio Normal 02-17-2018 [facility] (04688) Comment: Performed By: #### [id number] #### [address],[place] [address] Bilirubin mass conc 0.4 0.0 - 1.5 mg/dl Normal 02-17-2018 [facility] (22408) Comment: Performed By: #### [id number] #### [facility],[address] [place] [address]907 Calcium mass conc 9.3 8.6 - 10.2 mg/dl Normal 02-17-2018 [facility] (43370) Comment: Performed By: #### [id number] #### [facility],[address] [place] [address] 35500 Chloride molar conc 102 98 - 107 mmol/L Normal 02-17-2018 [facility] (69799) Comment: Performed By: #### [id number] #### [address] [address] CO2 molar conc 29.7 21.0 - 31.0 mmol/L Normal 02-17-2018 [facility] (29424) Comment: Performed By: #### [id number] #### [address] [address] Creatinine mass conc 0.7 0.6 - 1.2 mg/dl Normal 02-17-2018 [facility] (89468) Comment: Performed By: #### [id number] #### [address] [address] GFR/1.73 sq M >60 60 - 999 mL/min/{1.73_m2} Normal 02-17-2018 [facility] non-blacks MDRD vol (32336) rate/area (S/P/Bld) Comment: Result Comment: ACCORDING TO THE NATIONAL KIDNEY DISEASE EDUCATION PROGRAM(NKDE), A NORMAL eGFR IS A VALUE GREATER THAN OR EQUAL TO 60 ML/MIN/1.73 SQ METERS. CHRONIC KIDNEY DISEASE: <60mL/MIN/1.73 SQ METERS KIDNEY FAILURE: <15mL/MIN/1.73 SQ METERS THIS TEST SHOULD ONLY BE USED FOR PATIENTS 18 YEARS OF AGE AND OLDER. Performed By: #### [id number] #### [facility],[address] [place] [address] GFR/1.73 sq M predicted among Normal 02-17-2018 [facility] non-blacks MDRD vol rate/[facility] (12680) (S/P/Bld) Comment: Result Comment: COMPREHENSIVE METABOLIC PANEL Performed By: #### [id number] #### [facility],[address] [place] [address]32 Globulin mass conc (S) 2.6 1.5 - 3.8 G/DL Normal 02-17-2018 [facility] (24228) Comment: Performed By: #### [id number] #### [facility],[address] [place] [address]476 Glucose mass conc 97 74 - 106 mg/dl Normal 02-17-2018 [facility] (92564) Comment: Performed By: #### [id number] #### [facility],[address] [place] [address] 47698 Potassium molar conc 3.4 3.5 - 5.1 mmol/L Low 02-17-2018 [facility] (54128) Comment: Performed By: #### 096735 #### [facility],[address] [place] [address] [place] [address] Protein mass conc 6.5 6.4 - 8.3 g/dl Normal 02-17-2018 [facility] (22777) Comment: Performed By: #### 177327 #### [facility],[address] [place] [address] [place] [address] Sodium molar conc 139 136 - 145 mmol/l Normal 02-17-2018 [facility] (93011) Comment: Performed By: #### [id number] #### [facility],[address] [place] [address] [place] [address] Urea nitrogen mass conc 12 6 - 20 mg/dl Normal 02-17-2018 [facility] (15760) Comment: Performed By: #### [id number] #### [facility],[address] [facility] [address] chest 2 views on 2018-02-17 CHEST 2 VIEWS [facility] Normal 02-17-[address] [address] ([id number]) Patient: ASHLEY MARIE Phone#: : 1950 Age: 67 Gender: F Pt. Type: ER Account: [id number] Location: [id number] Ordering: SARAH DANIEL Exam Date: 02/17/2018/10:30 Family Phys: KAVITA IVEY Charge Code: 635168 Physician: [place] Order #: [id number] DLP Dose#: PROCEDURE: X-RAY CHEST 2 VIEWS COMPARISON: [facility], CT, CHEST PE W CON, 12/19/2016, 18:49. [facility], XR, CHEST PA/LAT, 08/28/2016, 14:06. [facility], XR, CHEST PA/LAT, 12/19/2016, [...] Tea Oneill MD on 02/17/2018 at 11:19 cbc on 2018-02-17 Basophils #/vol (Bld) 0.10 0.00 - 0.10 x10EE3/UL Normal 02-17-2018 [facility] (85885) Comment: Performed By: #### [id number] #### [address] [address] Basophils/100 WBC (Bld) 0.9 0.0 - 2.0 % Normal 02-17-2018 [facility] (35042) Comment: Performed By: #### 633696 #### [address] [address] CBC Normal 02-17-2018 [facility] (73143) Comment: Result Comment: CBC-COMPLETE BLOOD COUNT Performed By: #### [id number] #### [address] [address] Eosinophils #/vol 0.10 0.00 - 0.50 x10EE3/UL Normal 02-17-2018 [facility] ([facility] (64150) Comment: Performed By: #### 350284 #### [address] [address] Eosinophils/100 WBC (Bld) 1.0 0.0 - 7.0 % Normal 02-17-2018 [facility] (17835) Comment: Performed By: #### [id number] #### [address] [address] Erythrocyte distribution 13.6 12.0 - 15.6 % Normal 02-17-2018 [facility] width Ratio (RBC) [facility] (02120) Comment: Performed By: #### [id number] #### [address] [address] Hematocrit Volume 39.3 34.0 - 46.0 % Normal 02-17-[address] [facility] ([facility] (38165) Comment: Performed By: #### 136344 #### [address] [address] Hemoglobin mass conc 13.4 12.0 - 16.0 g/dl Normal 02-17-2018 [facility] (62023) Comment: Performed By: #### [id number] #### [facility],[address] [place] [address] Lymphocytes #/vol 1.70 0.80 - 2.80 x10EE3/UL Normal 02-17-2018 [facility] (35052) Comment: Performed By: #### 828140 #### [facility],[address] [place] [address] Lymphocytes/100 WBC (Bld) 15.1 20.0 - 45.0 % Low 02-17-2018 [facility] (96782) Comment: Performed By: #### 542030 #### [address] [address] MANUAL DIFF N/A Normal 02-17-2018 [facility] (07384) Comment: Performed By: #### 390871 #### [facility],[address] [place] [address] MCH Entitic mass (RBC) 31 27 - 33 pg Normal 02-17-2018 [facility] (30596) Comment: Performed By: #### 286345 #### [address] [address] MCHC mass conc (RBC) 34 32 - 36 X10 3 Normal 02-17-2018 [facility] (89372) Comment: Performed By: #### [id number] #### [address] [address] MCV Entitic volume (RBC) 90 80 - 99 fl Normal 02-17-2018 [facility] (87851) Comment: Performed By: #### [id number] #### [facility],[address] [place] [address] Monocytes #/vol (Bld) 1.10 0.20 - 1.00 x10EE3/UL High 02-17-2018 [facility] (95502) Comment: Performed By: #### 752121 #### [facility],[address] [place] [address] MONOS % 10.3 0.0 - 10.0 % High 02-17-2018 [facility] (92215) Comment: Performed By: #### 268486 #### [facility],[address] [place] [address] 32673 Morphology Interp Felipe (Bld) N/A Normal 02-17-2018 [facility] (31971) Comment: Result Comment: {CD] Performed By: #### 267051 #### [address] [address] Neutrophils #/vol (Bld) 8.00 1.50 - 7.10 x10EE3/UL High 02-17-2018 [facility] (10353) Comment: Performed By: #### 648310 #### [address] [address] Neutrophils/100 WBC (Bld) 72.7 46.0 - 76.0 % Normal 02-17-2018 [facility] (63309) Comment: Performed By: #### 407124 #### [facility],[address] [place] [address]2598 Platelet mean volume 7.6 6.6 - 10.5 fl Normal 02-17-2018 [facility] Entitic volume (Bld) Hospital (28083) Comment: Result Comment: AUTOMATED DIFFERENTIAL Performed By: #### [id number] #### [address] [address] Platelets #/vol (Bld) 311 150 - 450 x10EE3/UL Normal 02-17-2018 [facility] (29697) Comment: Performed By: #### 468519 #### [address] [address] RBC #/vol (Bld) 4.35 4.10 - 5.30 x 10EE6/UL Normal 02-17-2018 [facility] (13613) Comment: Performed By: #### [id number] #### [facility],[address] [place] [address] [place] [address] WBC #/vol (Bld) 11.1 4.5 - 10.8 x 10EE3/UL High 02-17-2018 [facility] (79037) Comment: Performed By: #### [id number] #### [facility],[address] [place] [address] [place] [address] arterial blood gas analysis on 2018-02-17 ALLENS TEST Normal 02-17-2018 [facility] (75730) Comment: Result Comment: { TIME CALLED 1057 Performed By: #### [id number] #### [facility],[address] [place] [address] 10864 ARTERIAL BLOOD GAS ANALYSIS Normal 02-17-2018 [facility] (01712) Comment: Result Comment: ARTERIAL BLOOD GAS Performed By: #### 170455 #### [facility],[address] [place] [address] [place] [address] Base excess Calculated molar 4 -2 - 3 mmol/L High 02-17-2018 [facility] (d) [facility] (76255) Comment: Performed By: #### 882837 #### [facility],[address] [place] [address] [place] [address] HCO3 molar conc (Bld) 27 20 - 24 mmol/L High 02-17-2018 [facility] (86587) Comment: Performed By: #### 295258 #### [facility],[address] [place] [address] [place] [address] MODALITY NC Normal 02-17-2018 [facility] (17840) Comment: Performed By: #### [id number] #### [facility],[address] [place] [address] [place] [address] Oxygen ppres (Bld) 87 80 - 105 mm Hg Normal 02-17-2018 [facility] (39102) Comment: Performed By: #### [id number] #### [facility],[address] [place] [address]6762 PCO2 39 35 - 45 mm Hg Normal 02-17-2018 [facility] (93693) Comment: Performed By: #### 431934 #### [facility],[address] [place] [address]362 pH (Bld) 7.46 7.35 - 7.45 [pH] High 02-17-2018 [facility] (30934) Comment: Performed By: #### 142378 #### [facility],[address] [place] [address]97 SAMPLE SITE LT BRACH Normal 02-17-2018 [facility] (15074) Comment: Performed By: #### 373483 #### [address] [address] SaO2 96 95 - 98 Normal 02-17-2018 [facility] (74366) Comment: Result Comment: TIME RESULT CALLED _1057 02/17/18.1056.ZSK. { FIO2/LPM 2LPM Performed By: #### [id number] #### [facility],[address] [place] [address] 47420 SPO2 95 Normal 02-17-2018 [facility] (94883) Comment: Performed By: #### [id number] #### [address] [address] TOTAL RR 22 Normal 02-17-2018 [facility] (14541) Comment: Performed By: #### [id number] #### [facility],[address] [place] [address]655 VENT N/A Normal 02-17-2018 [facility] (66990) Comment: Performed By: #### 799247 #### [address] [address] Vital Signs Vital Sign Description Value / Unit Date Location The following section is limited to 5 entries per type and includes entries from the following time range: 20180217 - 20180217. Heart rate 89 /min 02-17-2018 [facility] (39869) Encounters Date Type Reason Provider Location 08-02-2018 - Evaluation and Pneumonia, KAVITA Colesel Pomerene 08-07-2018 management of unspecified organism KAVITA CHAUDHRY [facility] KAVITA CHAUDHRY [facility] KAVITA IVEY (74817) KAVITA IVEY UNKNOWN PROVIDER UNKNOWN PROVIDER UNKNOWN PROVIDER 02-17-2018 - Evaluation and Chronic obstructive KAVITA Junior 02-20-2018 management of pulmonary disease, KAVITA CHAUDHRY [facility] unspecified KAVITA CHAUDHRY [facility] KAVITA IVEY (11955) KAVITA IVEY UNKNOWN PROVIDER UNKNOWN PROVIDER UNKNOWN PROVIDER 01-29-2019 Patient encounter NORMAN PA-C Tomas Pomerene procedure [facility] KAVITA IVEY (90781) NORMAN PA-C [facility] UNKNOWN PROVIDER UNKNOWN PROVIDER UNKNOWN PROVIDER ALEJANDRO SANDY 01-26-2019 - Patient encounter Encounter for other [facility] Tomas Pomerene 01-26-2019 procedure preprocedural [facility] KAVITA (29326) MD IVEY [facility] UNKNOWN PROVIDER UNKNOWN PROVIDER UNKNOWN PROVIDER 01-02-2019 - Patient encounter Localized edema [facility] Tomas Pomerene 01-09-2019 procedure [facility] (89610) UNKNOWN PROVIDER UNKNOWN PROVIDER UNKNOWN PROVIDER 09-15-2018 - Patient encounter NORMAN PA-C Tomas Pomerene 09-15-[address] [facility] KAVITA IVEY (09696) NORMAN PA-C [facility] UNKNOWN PROVIDER UNKNOWN PROVIDER UNKNOWN PROVIDER 08-16-2018 Patient encounter KAVITA Junior procedure [facility]ITA IVEY [facility] KAVITA IVEY (58735) UNKNOWN PROVIDER UNKNOWN PROVIDER UNKNOWN PROVIDER 04-13-2018 - Patient encounter ALEJANDRO SANDY Tomas Pomerene 04-13-2018 procedure [facility] KAVITA IVEY [facility] Tuan TORRESLL (45777) KAVITA IVEY UNKNOWN PROVIDER UNKNOWN PROVIDER UNKNOWN PROVIDER 02-06-2018 - Patient encounter ALEJANDRO Mauricein 02-06-2018 procedure [facility] (71477) 01-26-2019 Encounter for other Encounter for other [facility] preprocedural preprocedural [facility] examination examination Hospital (27715) Procedures Procedure Name Date Provider Location Microscopic examination of 02-17-2018 - [facility] blood, culture 02-17-2018 Hospital (25925) Comment: Performed By: #### 401007 #### [facility],[address] [place] [address]25 Payers Payer Name Policy Number Location [employer] CLAIMS/MEDICARE ADVANTAGE [id number] [facility] (36148) MEDICARE [id number] [facility] (16120) [id number] [facility] (17704) [id number] [facility] (45457) [id number] [facility] (45535) [id number] [facility] (36373) [id number] [facility] (02774) [id number] [facility] (15226) [phone] [facility] (36472) [phone] [facility] (59020) [phone] [facility] (18151) [phone] [facility] (12125) The following information is from the original human readable content ENCOUNTER GUARANTOR PAYER SUBSCRIBER SOURCE 01/29/2019 ASHLEY ALEJANDROB: Primary ASHLEY D ROCKDOB: Tomas Pomerene [id number] TR Insurance:HUMANA [id number] [address] CLAIMS/MEDICARE TR [address] [place] [address], [facility] [address]Vjc: (250) [place]AGE[place]: [id number] [phone] () [id number] Date:8286-01-30Rmgf Name: 01/29/2019 ASHLEY D DOB: Primary ASHLEY ROCKDOB: Tomas Pomerene TR Insurance:HUMANA [id number] [facility] [place], [place] [address] Repository [address]Xca: [phone]) ADVANTAGEPolicy Number: [place] [phone] () [id number] Date:0691-37-89Oxws Name: 01/29/2019 Secondary ASHLEY ROCKDOB: Tomas Junior Insurance:MEDICAREPolic [id number] [place] [address] y Number: [facility] [address] Repository [id number] [address] [place] [address] Date:2014-08-28 86156 01/26/2019 ASHLEY D ROCKDOB: Primary ASHLEY D ROCKDOB: Tomas Junior TR Insurance:HUMANA [id number] [facility] [place] [address] Repository [address]Sqm: ([phone]) ADVANTAGEPolicy Number: [id number] [phone] () [id number] Date:4866-35-27Eyza Name: 01/02/2019 ASHLEY D ROCKDOB: Primary ASHLEY D ROCKDOB: Tomas Junior TR Insurance:HUMANA [id number] [address] MEDICARE ADVANTAGE [address], Repository [address]Scs: (702) [place]: [id number] [phone] () [id number] Date:Plan Name: 09/15/2018 ASHLEY D ROCKDOB: Primary ASHLEY D ROCKDOB: Tomas Junior TR Insurance:HUMANA [id number] [facility] [place] [address] Repository [address]Nwv: (702) ADVANTAGEPolicy Number: [place], [place] [phone] () [id number] Date:8502-71-39Wuak Name: 08/16/2018 ASHLEY ROCKDOB: Primary Insurance:S - ASHLEY D ROCKDOB: Tomas Junior TR MEDICARE-PRIMARYPolicy [id number] [address] Number: [place], Repository [address]Fhp: [phone] [id number] [place] [id number] [phone] (HP) Date:6709-97-78Pqxy Name: 08/01/2018 ASHLEY ROCKDOB: Primary ASHLEY ROCKDOB: Tomas Junior TR Insurance:HUMANA [id number] [place] [address] MEDICARE ADVANTAGE [address], Repository [address]Jwz: ([phone]) [id number] [phone] (HP) [id number] Date:Plan Name: 04/13/2018 ASHLEY ROCKDOB: Primary ASHLEY D ROCKDOB: Tomas Junior TR Insurance:HUMANA [id number] [facility] [place] [address] Repository 394[address]Tpc: [phone]) ADVANTAGEPolicy Number: [address] [place], [place] [address], [place] [phone] (HP) [id number] Date:3590-37-85Vzlp Name: 02/17/2018 ASHLEY ROCKDOB: Primary ASHLEY ROCKDOB: Tomas Junior TR Insurance:HUMANA [id number] [place] [address] MEDICARE ADVANTAGE [address], Repository [address]Lkm: (702) [place]: [id number] [phone] (HP) [id number] Date:Plan Name: 02/06/2018 ASHLEY ROCKDOB: Primary ASHLEY D ROCKDOB: Tomas Junior Insurance:MEDICARE [id number] [place] [address] [address] [place]: [id number]: (539) [id number] [phone] (HP) Date:Plan Name:MC Summary Purpose DATE CREATED AUTHOR AUTHOR'S ORGANIZATION 05/17/2018 [facility] ([place]) DATE CREATED AUTHOR AUTHOR'S ORGANIZATION 01/30/2019 [facility] Family History No Family History Records Found Advance Directives No Advanced Directives Records Found Additional Source Comments FOR RECORDS PERTAINING TO PATIENTS WHO ARE OR HAVE BEEN ENROLLED IN A CHEMICAL DEPENDENCY/SUBSTANCE ABUSE PROGRAM, SOME INFORMATION MAY BE OMITTED. This clinical summary was aggregated from multiple sources. Caution should be exercised in using it in the provision of clinical care. This summary normalizes information from multiple sources, and as a consequence, information in this document may materially changethe coding, format and clinical context of patient data. In addition, data may be omittedin some cases. CLINICAL DECISIONS SHOULD BE BASED ON THE PRIMARY CLINICAL RECORDS. [facility] provides no warranty or guarantee of the accuracy or completeness of information in this document. UNRECOGNIZED CONTENT PROVIDED BELOW FOR UNRECOGNIZED SECTION INFORMATION SOURCE DATE CREATED AUTHOR AUTHOR'S ORGANIZATION 01/30/2019 [facility] DATE CREATED AUTHOR AUTHOR'S ORGANIZATION 05/17/2018 [facility] ([place])
== END ==
LOC: PAT 04-02 15:54
PROVIDERS: Anesthesiology; Family Provider Internal Medicine Infectious Disease; PCP Internal Medicine Infectious Disease; Referring Provider Specialist; Visit Provider Specialist
DX: M16.11 Unilateral primary osteoarthritis, right hip (principal); I10 Essential (primary) hypertension; E78.00 Pure hypercholesterolemia, unspecified; J43.9 Emphysema, unspecified; M81.0 Age-related osteoporosis without current pathological fracture; R94.31 Abnormal electrocardiogram [ECG] [EKG]; Z85.118 Personal history of other malignant neoplasm of bronchus and lung
CPT/HCPCS: 36415; 71046; 80048; 80076; 85025; 85610; 85730; 87081; 93005

== ENCOUNTER 2019-02-07 09:38 | Inpatient (IN) | payer MEDICARE, SELFPAY ==
[2019-01-15 13:19] VITALS: BMI 29.5
[2019-02-07] VITALS (13 sets, daily range): BP systolic 100–150; BP diastolic 54–84; PULSE 68–78; RESP 14–20; TEMP 36.3–37.3; O2SAT 91–99; BMI 29.5; BMI 32.0
[2019-02-07] MEDS: Celecoxib 200 MG Capsule 400 MG PO (10:28)
[2019-02-07] MEDS: Acetaminophen 500 MG Tablet 1000 MG PO ×2 (10:29→22:14)
[2019-02-07] MEDS: oxyCODONE HCl Cr 10 MG Tablet PO (10:30)
[2019-02-07] MEDS: Cefazolin 2 GM in 0.9% Normal Saline 100 ML IV (11:39)
--- NOTE | 2019-02-07 12:30 | RAD_ITS ---
STUDY: X-RAY - RIGHT HIP REASON FOR EXAM: Female, 68 years old. Total anterior hip replacement TECHNIQUE: 2 views of the hip. COMPARISON: Prior study of 02/07/2019 2:00 PM FINDINGS: 2 intraoperative views of the right hip demonstrate status post total right hip replacement changes. Implants appear in good position. RAD/Hip 1 view with Pelvis IMPRESSION: Status post total right hip replacement changes with implants appearing in good position. Total fluoroscopy time of 5.3 seconds was reported. Electronically Signed: Ollie Marley MD at 17:03 EDT , Service support ,
--- NOTE | 2019-02-07 12:54 | RAD_ITS ---
STUDY: X-RAY - RIGHT HIP REASON FOR EXAM: Female, 68 years old. Total hip replacement. TECHNIQUE: 2 views of the hip. COMPARISON: None. FINDINGS: The patient is status post right total hip replacement. There is good alignment. Normal visualized superior and inferior pubic rami and ischial tuberosities. Postoperative soft tissue changes. RAD/Hip Min 2 Views (Portable) IMPRESSION: Status post right total hip replacement. There is normal alignment. Postoperative soft tissue changes. Electronically Signed: Sin Hurtado, at 15:08 EDT , Service support ,
--- NOTE | 2019-02-07 12:58 | OP.PCM_ITS ---
Report of Operation Date of Procedure: 02/07/19 Pre-Operative Diagnosis: Right hip primary osteoarthritis Post-Operative Diagnosis: Right hip primary osteoarthritis Surgery/Procedure Performed:: Right direct anterior total hip replacement Description of Surgical Findings:: Stable hip with equal leg lengths lymphedema therapist: Rafael Richey Type of Anesthesia:: Spinal Anesthesiologist: Derek Trujillo Special Medications: 2 g Ancef, 1 g TXA at incision, 1 g TXA closure, 10 mg Decadron, joint cocktail (5 mg Duramorph, 30 mL of 0.5% Ropivicaine, 1000 units of epinephrine, 30 mg of Toradol) Specimen's removed: Bony cuts Estimated Blood Loss (mL): 150 Fluids Replaced: 1200 mL crystalloid Description of Procedure: Components used: 1. Accolade 2 Shankar femoral stem size 3 127? 2. [place] trident 2 acetabular shell size 50 mm 3. [place] X3 polyethylene d 4. Shankar Biolox delta 36mm, 0mm femoral head Brief history operative indications: 68 yo F who failed conservative measures for their hip osteoarthritis. X-rays were consistent with osteoarthritis including joint space narrowing, osteophyte formation and subchondral cysts. Total hip replacement was discussed with the patient with risks and benefits including but not limited to blood loss, DVTs, PEs, neurovascular damage, dislocation, general risks of anesthesia including loss of life. Patient demonstrated an understanding medical clearance is obtained the patient was consented for surgery. Procedure: On the date of procedure the patient's R hip was marked in the preoperative area. Patient was then taken back to the operating room where anesthesia assumed control of the C-spine and airway and administered anesthetic. Patient was transferred to the operating table and placed in the supine position. The hips were placed at the break of the bed and a sacral bump was placed. The R lower extremity was then prepped out in a sterile fashion using chlorhexidine while the surgeon scrubbed. The PA was vital in the positioning of the patient. Upon reentering the room the R lower extremity was draped in the standard orthopedic fashion and the incision was marked. A timeout was called and everyone agreed upon the side, the site, the procedure be performed, antibody g iven, and patient's identity. At this time incision was made through skin, subcutaneous tissue, and fat down to fascia. The fascia was then incised and the TFL was retracted laterally. A retractor was placed on the lateral border of the femoral neck. Attention was directed to the inferior portion of the approach and all crossing vessels were identified and appropriately coagulated. A retractor was then placed on the medial portion of the femoral neck. The anterior capsule was then cleared of all soft tissue and then H shaped capsulotomy was made. The retractors were then placed inside the capsule. The femoral neck was identified and a cleanup cut was made. At this time a power corkscrew was used to remove the femoral head. Attention was then turned toward the acetabulum where the soft tissues were appropriately retracted and the acetabulum was sequentially reamed to 50 mm. A 50 mm cup was then selected and impacted into place. Acetabular liner was impacted into place and locking mechanism was verified. The position of the acetabular cup was then verified under live fluoroscopy. Attention was then turned to the femur. Soft tissue releases on the medial and lateral femoral neck were appropriately done, the leg was externally rotated and lateralized. A Brady retractor was placed medially and proximally to the greater trochanter this allowed appropriate visualization and exposure of the femoral canal. Rongeour was then used to remove excess lateral bone. A canal finder and entry broach were used to open the proximal canal. Once we verified we were down the femoral canal we subsequently broached up to a size 3 femur. The appropriate neck was placed in the previously selected head was trialed with a 0 mm neck. Traction was pulled and the hip was reduced with internal rotation. Once it was appropriately reduced and stability was checked. There was minimal shuck, equal leg lengths and appropriate stability with hyperextension and external rotation as well as with 90? flexion and internal rotation. Fluoroscopy was then also used to verify the position of the components and leg lengths using the contralateral side for comparison. The trial components were then dislocated the proximal femur was again exposed and the components were removed from the wound. The final components were verified and opened. The wound was copiously irrigated out with normal saline. The acetabulum was checked for any residual debris. The final components were placed and impacted. Traction and internal rotation were again used to reduce the hip. After adequate reduction the hip remained stable with appropriate leg lengths. The final components were once again checked with live fluoroscopy and were found to be satisfactory. The wound was then copiously irrigated with normal saline once more, and hemostasis was obtained. Closure was then done using #1 Vicryl runner to close the fascia. A 2-0 vicryl interuppted sutures were used to close the subcutaneous skin. A 3-0 Monocryl and Steri-Strips were used for final skin closure. A Silverlon dressing was placed. Patient was awakened by anesthesia and transferred to the [facility]. Patient was then transferred to the PACU for recovery. Postoperative plan: Patient will get 24 hours postop antibiotics. Patient will get in-house physical therapy and will be weight-bear as tolerated. Patient will follow up in office in 2 weeks for a wound check and x-rays. During the course of the procedure the physician esl instructional assistant played a vital role. His intimate knowledge of my steps in the procedure aided in safe and expedient completion of the procedure. The PA played a vital rolls in positioning particularly in obtaining the appropriate positioning of the sacral bump. The PA was also vital in the retraction of soft tissues during the exposure and especially the femoral work as this is a vital part of the procedure to prevent complications and fractures. The PA was also vital and protecting soft tissues during times of bony cuts and reaming. He also played a vital role in closure with my direct supervision. The PA was also important during reduction and dislocation of the joint and trials intraoperatively. - Complications No intraoperative complications - Admit VTE Documentation VTE Present on Admission: No VTE Mechan Device Prophylaxis: SCD's, Thigh High ALEKSANDR Hose VTE Pharm Prophylaxis ordered?: Yes
[2019-02-07] MEDS: Scopolamine 1mg/72hr Patch 1 PATCH TD (14:35)
[2019-02-07] MEDS: Morphine 2 MG/ML Syringe IV (16:22)
[2019-02-07] MEDS: Lactated Ringers 1,000 ML 75 ML IV (16:24)
--- NOTE | 2019-02-07 16:38 | PCM.PN.HOSP ---
Subjective: Patient is a 68-year-old lady who underwent right direct anterior hip replacement on account of right hip primary osteoarthritis on 02/07/[address] Kingsley the hospitalist service was consulted to assist with management of patient medical comorbidities Objective: GENERAL: cooperative HEENT: Atraumatic; moist oral mucosa EYES; Anicteric, Normal Conjunctiva NECK; supple, normal thyroid, no distended JVD. RESPIRATORY: Diminished to auscultation bilaterally, CARDIOVASCULAR: Regular S1 S2, no audible murmurs GI: soft, non-tender, normoactive bowel sounds, : No Renal angle tenderness; EXTREMITIES: No edema, no clubbing, no cyanosis. NEURO: Awake; no lateralizing signs. SKIN: No Rash PSYCH; Normal affect Vitals/I&O's: Vital Signs Temp Pulse Resp BP Pulse Ox 97.5 F L 69 18 120/69 97 02/07/19 16:01 02/07/19 16:01 02/07/19 16:01 02/07/19 16:01 02/07/19 16:01 Oxygen Flow Rate (L/min) 3 Oxygen Delivery Method Nasal Cannula Weight: 79.5 kg Body Mass Index (BMI) 32.0 Intake and Output for Last 24 Hours 02/05/19 02/06/19 02/07/19 23:59 23:59 23:59 Intake Total 1400 / 1400 Balance 1400 / 1400 Current Medications Acetaminophen (Tylenol) 1,000 mg PO Q8 [facility] Albuterol Sulfate (Ventolin Aerosols) 2.5 mg INHALATION Q4H PRN PRN Reason: SOB &/OR WHEEZING Alprazolam (Xanax) 0.5 mg PO QHS [facility] Amlodipine Besylate (Norvasc) 5 mg PO DAILY [facility] Aspirin (Aspirin, Baby) 81 mg PO BIDCM [facility] Atorvastatin Calcium (Lipitor) 5 mg PO QHS [facility] Citalopram Hydrobromide (Celexa) 20 mg PO DAILY [facility] Docusate Sodium (Colace) 100 mg PO QODAY [facility] Famotidine (Pepcid) 20 mg PO DAILY [facility] Cefazolin Sodium () 1 gm in 50 mls @ 150 mls/hr IV Q8H [facility] Stop: 02/08/19 04:19 Lactated Ringer's () 1,000 mls @ 75 mls/hr IV .[id number] [facility] Last Admin: 02/07/19 16:24 Dose: 75 mls/hr Ketorolac Tromethamine (Toradol) 15 mg IV Q6H PRN PRN PRN Reason: MILD-MOD PAIN (1-510) Stop: 02/12/19 12:53 Losartan Potassium (Cozaar) 50 mg PO DAILY [facility] Meloxicam (Mobic) 7.5 mg PO BID [facility] Morphine Sulfate () 2 - 4 mg IV Q2H PRN PRN PRN Reason: SEVERE PAIN (6-10/10) Last Admin: 02/07/19 16:22 Dose: 2 mg Morphine Sulfate () 2 - 4 mg IV Q2H PRN PRN PRN Reason: SEVERE PAIN (6-10/10) Nutritional Formula (Lactose Free) (Ensure Clear) 120 ml PO TIDCM [facility] Ondansetron HCl (Zofran) 4 mg IV Q8H PRN PRN PRN Reason: NAUSEA Oxycodone HCl (Oxyir) 5 - 10 mg PO Q4H PRN PRN PRN Reason: MOD-SEVERE PAIN (4-1010) Pantoprazole Sodium (Protonix) 40 mg PO DAILY [facility] Promethazine HCl (Phenergan) 12.5 mg IM Q6H PRN PRN; Protocol PRN Reason: NAUSEA/VOMITING Senna/Docusate Sodium (Senokot-S, Jeanine-Colace) 2 tablet PO BID [facility] Sodium Chloride () 5 - 15 ml IV UD PRN PRN Reason: SALINE FLUSH Medical Necessity - Tobacco Use Smoking Status: Former smoker Assessment/Plan Patient is a 68-year-old lady who underwent right direct anterior hip replacement on account of right hip primary osteoarthritis on 02/07/[address] Kingsley the hospitalist service was consulted to assist with management of patient medical comorbidities 1. Status post right direct anterior hip replacement on account of right hip primary osteoarthritis on 02/07/[address] Kingsley patient postoperative orders with regards to pain management, DVT prophylaxis as well as PT OT orders addressed by primary service 2. Hypertension-blood pressure controlled, home medications continued with dose adjustment as needed 3. Dyslipidemia-patient is on statin therapy, continued at home dose 4. GERD on PPI 5. Hypoxic respiratory failure patient is on baseline home O2 6. History of lung CA status post right lower lung lobectomy 7. DVT prophylaxis deferred to primary service Active Medications Acetaminophen (Tylenol) 1,000 mg PO Q8 [facility] Albuterol Sulfate (Ventolin Aerosols) 2.5 mg INHALATION Q4H PRN PRN Reason: SOB &/OR WHEEZING Alprazolam (Xanax) 0.5 mg PO QHS [facility] Amlodipine Besylate (Norvasc) 5 mg PO DAILY [facility] Aspirin (Aspirin, Baby) 81 mg PO BIDCM [facility] Atorvastatin Calcium (Lipitor) 5 mg PO QHS [facility] Citalopram Hydrobromide (Celexa) 20 mg PO DAILY [facility] Docusate Sodium (Colace) 100 mg PO QODAY [facility] Famotidine (Pepcid) 20 mg PO DAILY [facility] Cefazolin Sodium () 1 gm in 50 mls @ 150 mls/hr IV Q8H [facility] Stop: 02/08/19 04:19 Lactated Ringer's () 1,000 mls @ 75 mls/hr IV .[id number] [facility] Last Admin: 02/07/19 16:24 Dose: 75 mls/hr Ketorolac Tromethamine (Toradol) 15 mg IV Q6H PRN PRN PRN Reason: MILD-MOD PAIN (1-5/10) Stop: 02/12/19 12:53 Losartan Potassium (Cozaar) 50 mg PO DAILY [facility] Meloxicam (Mobic) 7.5 mg PO BID [facility] Morphine Sulfate () 2 - 4 mg IV Q2H PRN PRN PRN Reason: SEVERE PAIN (6-10/10) Last Admin: 02/07/19 16:22 Dose: 2 mg Morphine Sulfate () 2 - 4 mg IV Q2H PRN PRN PRN Reason: SEVERE PAIN (6-10/10) Nutritional Formula (Lactose Free) (Ensure Clear) 120 ml PO TIDCM [facility] Ondansetron HCl (Zofran) 4 mg IV Q8H PRN PRN PRN Reason: NAUSEA Oxycodone HCl (Oxyir) 5 - 10 mg PO Q4H PRN PRN PRN Reason: MOD-SEVERE PAIN (4-10/10) Pantoprazole Sodium (Protonix) 40 mg PO DAILY [facility] Promethazine HCl (Phenergan) 12.5 mg IM Q6H PRN PRN; Protocol PRN Reason: NAUSEA/VOMITING Senna/Docusate Sodium (Senokot-S, Jeanine-Colace) 2 tablet PO BID [facility] Sodium Chloride () 5 - 15 ml IV UD PRN PRN Reason: SALINE FLUSH Clinical Impression(s) from Imaging Studies Hip X-Ray 02/07/19 12:54 IMPRESSION: Status post right total hip replacement. There is normal alignment. Postoperative soft tissue changes. Electronically Signed: Sin Hurtado, at 15:08 EDT , Service support , Code Visit Inpatient E&M: [id number] Subs Hosp L3
--- NOTE | 2019-02-07 16:42 | PN_ITS ---
Subjective: Patient is a 68-year-old lady who underwent right direct anterior hip replacement on account of right hip primary osteoarthritis on 02/07/[address] Kingsley the hospitalist service was consulted to assist with management of patient medical comorbidities Objective: GENERAL: cooperative HEENT: Atraumatic; moist oral mucosa EYES; Anicteric, Normal Conjunctiva NECK; supple, normal thyroid, no distended JVD. RESPIRATORY: Diminished to auscultation bilaterally, CARDIOVASCULAR: Regular S1 S2, no audible murmurs GI: soft, non-tender, normoactive bowel sounds, : No Renal angle tenderness; EXTREMITIES: No edema, no clubbing, no cyanosis. NEURO: Awake; no lateralizing signs. SKIN: No Rash PSYCH; Normal affect Vitals/I&O's: Vital Signs Temp Pulse Resp BP Pulse Ox 97.5 F L 69 18 120/69 97 02/07/19 16:01 02/07/19 16:01 02/07/19 16:01 02/07/19 16:01 02/07/19 16:01 Oxygen Flow Rate (L/min) 3 Oxygen Delivery Method Nasal Cannula Weight: 79.5 kg Body Mass Index (BMI) 32.0 Intake and Output for Last 24 Hours 02/05/19 02/06/19 02/07/19 23:59 23:59 23:59 Intake Total 1400 / 1400 Balance 1400 / 1400 Current Medications Acetaminophen (Tylenol) 1,000 mg PO Q8 [facility] Albuterol Sulfate (Ventolin Aerosols) 2.5 mg INHALATION Q4H PRN PRN Reason: SOB &/OR WHEEZING Alprazolam (Xanax) 0.5 mg PO QHS [facility] Amlodipine Besylate (Norvasc) 5 mg PO DAILY [facility] Aspirin (Aspirin, Baby) 81 mg PO BIDCM [facility] Atorvastatin Calcium (Lipitor) 5 mg PO QHS [facility] Citalopram Hydrobromide (Celexa) 20 mg PO DAILY [facility] Docusate Sodium (Colace) 100 mg PO QODAY [facility] Famotidine (Pepcid) 20 mg PO DAILY [facility] Cefazolin Sodium () 1 gm in 50 mls @ 150 mls/hr IV Q8H [facility] Stop: 02/08/19 04:19 Lactated Ringer's () 1,000 mls @ 75 mls/hr IV .[id number] [facility] Last Admin: 02/07/19 16:24 Dose: 75 mls/hr Ketorolac Tromethamine (Toradol) 15 mg IV Q6H PRN PRN PRN Reason: MILD-MOD PAIN (1-510) Stop: 02/12/19 12:53 Losartan Potassium (Cozaar) 50 mg PO DAILY [facility] Meloxicam (Mobic) 7.5 mg PO BID [facility] Morphine Sulfate () 2 - 4 mg IV Q2H PRN PRN PRN Reason: SEVERE PAIN (6-10/10) Last Admin: 02/07/19 16:22 Dose: 2 mg Morphine Sulfate () 2 - 4 mg IV Q2H PRN PRN PRN Reason: SEVERE PAIN (6-10/10) Nutritional Formula (Lactose Free) (Ensure Clear) 120 ml PO TIDCM [facility] Ondansetron HCl (Zofran) 4 mg IV Q8H PRN PRN PRN Reason: NAUSEA Oxycodone HCl (Oxyir) 5 - 10 mg PO Q4H PRN PRN PRN Reason: MOD-SEVERE PAIN (4-1010) Pantoprazole Sodium (Protonix) 40 mg PO DAILY [facility] Promethazine HCl (Phenergan) 12.5 mg IM Q6H PRN PRN; Protocol PRN Reason: NAUSEA/VOMITING Senna/Docusate Sodium (Senokot-S, Jeanine-Colace) 2 tablet PO BID [facility] Sodium Chloride () 5 - 15 ml IV UD PRN PRN Reason: SALINE FLUSH Medical Necessity - Tobacco Use Smoking Status: Former smoker Assessment/Plan Patient is a 68-year-old lady who underwent right direct anterior hip replacement on account of right hip primary osteoarthritis on 02/07/[address] Kingsley the hospitalist service was consulted to assist with management of patient medical comorbidities 1. Status post right direct anterior hip replacement on account of right hip primary osteoarthritis on 02/07/[address] Kingsley patient postoperative orders with regards to pain management, DVT prophylaxis as well as PT OT orders addressed by primary service 2. Hypertension-blood pressure controlled, home medications continued with dose adjustment as needed 3. Dyslipidemia-patient is on statin therapy, continued at home dose 4. GERD on PPI 5. Hypoxic respiratory failure patient is on baseline home O2 6. History of lung CA status post right lower lung lobectomy 7. DVT prophylaxis deferred to primary service Active Medications Acetaminophen (Tylenol) 1,000 mg PO Q8 [facility] Albuterol Sulfate (Ventolin Aerosols) 2.5 mg INHALATION Q4H PRN PRN Reason: SOB &/OR WHEEZING Alprazolam (Xanax) 0.5 mg PO QHS [facility] Amlodipine Besylate (Norvasc) 5 mg PO DAILY [facility] Aspirin (Aspirin, Baby) 81 mg PO BIDCM [facility] Atorvastatin Calcium (Lipitor) 5 mg PO QHS [facility] Citalopram Hydrobromide (Celexa) 20 mg PO DAILY [facility] Docusate Sodium (Colace) 100 mg PO QODAY [facility] Famotidine (Pepcid) 20 mg PO DAILY [facility] Cefazolin Sodium () 1 gm in 50 mls @ 150 mls/hr IV Q8H [facility] Stop: 02/08/19 04:19 Lactated Ringer's () 1,000 mls @ 75 mls/hr IV .[id number] [facility] Last Admin: 02/07/19 16:24 Dose: 75 mls/hr Ketorolac Tromethamine (Toradol) 15 mg IV Q6H PRN PRN PRN Reason: MILD-MOD PAIN (1-5/10) Stop: 02/12/19 12:53 Losartan Potassium (Cozaar) 50 mg PO DAILY [facility] Meloxicam (Mobic) 7.5 mg PO BID [facility] Morphine Sulfate () 2 - 4 mg IV Q2H PRN PRN PRN Reason: SEVERE PAIN (6-10/10) Last Admin: 02/07/19 16:22 Dose: 2 mg Morphine Sulfate () 2 - 4 mg IV Q2H PRN PRN PRN Reason: SEVERE PAIN (6-10/10) Nutritional Formula (Lactose Free) (Ensure Clear) 120 ml PO TIDCM [facility] Ondansetron HCl (Zofran) 4 mg IV Q8H PRN PRN PRN Reason: NAUSEA Oxycodone HCl (Oxyir) 5 - 10 mg PO Q4H PRN PRN PRN Reason: MOD-SEVERE PAIN (4-10/10) Pantoprazole Sodium (Protonix) 40 mg PO DAILY [facility] Promethazine HCl (Phenergan) 12.5 mg IM Q6H PRN PRN; Protocol PRN Reason: NAUSEA/VOMITING Senna/Docusate Sodium (Senokot-S, Jeanine-Colace) 2 tablet PO BID [facility] Sodium Chloride () 5 - 15 ml IV UD PRN PRN Reason: SALINE FLUSH Clinical Impression(s) from Imaging Studies Hip X-Ray 02/07/19 12:54 IMPRESSION: Status post right total hip replacement. There is normal alignment. Postoperative soft tissue changes. Electronically Signed: Sin Hurtado, at 15:08 EDT , Service support , Code Visit Inpatient E&M: [id number] Subs Hosp L3
[2019-02-07] MEDS: oxyCODONE 5 MG Tablet PO (19:14)
[2019-02-07] MEDS: Ipratropium/Albuterol Sulfate 3 ML AMPUL.NEB INHALATION (19:38)
[2019-02-07] MEDS: Cefazolin 1 GM/50 ML BAG IV (20:25)
[2019-02-07] MEDS: Atorvastatin Calcium 10 MG Tablet 5 MG PO (22:13)
[2019-02-07] MEDS: Aspirin 81 MG TAB.CHEW PO (22:14)
[2019-02-07] MEDS: Senna/Docusate Sodium 1 Tablet 2 TABLET PO (22:16)
[2019-02-07] MEDS: ALPRAZolam 0.5 MG Tablet PO (22:17)
[2019-02-07] MEDS: Ketorolac 15 MG/ML Vial IV (22:25)
[2019-02-08] VITALS (8 sets, daily range): BP systolic 125–141; BP diastolic 59–74; PULSE 69–82; RESP 14–21; TEMP 36.8–37.1; O2SAT 95–97
[2019-02-08] MEDS: oxyCODONE 5 MG Tablet PO ×4 (00:20→17:03)
[2019-02-08] MEDS: Morphine 4 MG/ML Syringe IV (02:54)
[2019-02-08] MEDS: Cefazolin 1 GM/50 ML BAG IV (03:01)
[2019-02-08] MEDS: Acetaminophen 500 MG Tablet 1000 MG PO ×3 (05:51→22:14)
[2019-02-08 06:52] LABS: Hematocrit 33.7 % (37-47); Hemoglobin 10.5 g/dl (12.0-15.0); Mean Corp Hgb Conc 31.2 g/gl (32-36); Mean Corpuscular Hgb 29.2 pg (27.0-32.0); Mean Corpuscular Volume 93.9 fL (81-99); Mean Platelet Vol. 10.1 fl (6.2-12.0); Platelet Count 266 K/mm3 (150-450); RBC Distribution Width CV 13.4 % (11.6-14.6); RBC Distribution Width SD 44.4 fl (35.1-43.9); Red Blood Count 3.59 M/mm3 (4.2-5.4); White Blood Count 12.4 K/mm3 (4.4-11.0)
[2019-02-08 06:56] LABS: Scan Indicated on CBC? Y/N NO
[2019-02-08 07:03] LABS: Anion Gap 7 (5-15); BUN 13 mg/dL (7-18); BUN/Creat Ratio 19.1 RATIO (10-20); Calcium,Total 8.6 mg/dL (8.5-10.1); Chloride 104 mmol/L (98-107); Creatinine, Serum 0.68 mg/dL (0.55-1.02); EST Glomerular Filtration Rate 91 mL/min (>60); Est Glom Filt Rate - Afr Amer 110 mL/min (>60); Estimated Creatinine Clearance 41.99 ml/min; Glucose 133 mg/dL (74-106); Potassium 4.1 mmol/L (3.5-5.1); Sodium Level 139 mmol/L (136-145)
[2019-02-08] MEDS: Ipratropium/Albuterol Sulfate 3 ML AMPUL.NEB INHALATION ×2 (07:06→19:20)
[2019-02-08] MEDS: Aspirin 81 MG TAB.CHEW PO ×2 (08:25→17:03)
[2019-02-08] MEDS: Citalopram 20 MG Tablet PO (08:30)
[2019-02-08] MEDS: Losartan Potassium 50 MG Tablet PO (08:30)
[2019-02-08] MEDS: amLODIPine 5 MG Tablet PO (08:31)
[2019-02-08] MEDS: Famotidine 20 MG Tablet PO (08:31)
[2019-02-08] MEDS: Pantoprazole Sodium 40 MG Tablet PO (08:31)
[2019-02-08] MEDS: Senna/Docusate Sodium 1 Tablet 2 TABLET PO ×2 (08:32→22:14)
[2019-02-08] MEDS: Meloxicam 7.5 MG Tablet PO (08:32)
--- NOTE | 2019-02-08 09:43 | PN.ORTHO_ITS ---
Subjective: The patient was sitting in bedside chair upon examination. Patient denies any chest pain, dizziness, lightheadedness, nausea or vomiting, or calf pain. Patient is complaining of pain in the right hip, medications have been helpful. No adverse overnight events. Patient does require 2 L oxygen at home. Patient does have history of COPD/emphysema and history of lung cancer in 2007 with right lower lobe lobectomy. Objective: Vital signs stable and afebrile. Currently on 2 L O2 nasal cannula Patient is able to plantarflex and dorsiflex actively. Sensation is intact to light touch to saphenous, sural, superficial and deep peroneal, and tibial distribution. Dressing is clean dry and intact. Negative Homans bilaterally, negative signs and symptoms of DVT. - Physical Exam General: Alert, Oriented x3, Cooperative, No apparent distress Vital Signs Temp Pulse Resp BP Pulse Ox 98.7 F 82 16 131/73 H 97 02/08/19 08:11 02/08/19 08:11 02/08/19 08:11 02/08/19 08:11 02/08/19 08:11 Oxygen Flow Rate (L/min) 2 Oxygen Delivery Method Nasal Cannula Weight: 79.5 kg Body Mass Index (BMI) 32.0 Intake and Output for Last 24 Hours 02/06/19 02/07/19 02/08/19 23:59 23:59 23:59 Intake Total 1399 / 1400 1959 Balance 1399 / 1399 Laboratory Tests Past 24 Hrs 02/08/19 02/08/19 06:02 06:02 WBC 12.4 H RBC 3.59 L Hgb 10.5 L Hct 33.7 L MCV 93.9 MCH 29.2 MCHC 31.2 L RDW 13.4 RDW Differential 44.4 H Plt Count 266 MPV 10.1 Sodium 139 Potassium 4.1 Chloride 104 Carbon Dioxide 28.0 Anion Gap 7 BUN 13 Creatinine 0.68 Estim Creat Clear Calc 41.99 Est GFR (MDRD) Af Amer 110 Est GFR (MDRD) Non-Af 91 BUN/Creatinine Ratio 19.1 Glucose 133 H Calcium 8.6 Medical Necessity - Tobacco Use Smoking Status: Former smoker Assessment/Plan 1. S/P right direct anterior total hip arthroplasty POD #1 2. Continue Pain Medications: Tylenol and OxyIR 3. DVT Prophylaxis: Aspirin 81 mg twice daily with food for 4 weeks postoperatively 4. PT/OT: Weightbearing as tolerated 5. H & H: 10.5/33.7, asymptomatic 6. Encouraged Incentive Spirometry 7. Continue postoperative medical management per medicine 8. Reactive leukocytosis: Currently 12.4, afebrile. Patient did receive Decad rigoberto intraoperatively 9. Disposition: Plan will be for discharge home tomorrow. I would like patient to get more therapy in the hospital and monitor her pain level. Patient does have oxygen at home that she uses on a daily basis due to her previous pulmonary problems.
--- NOTE | 2019-02-08 09:48 | DCINST_ITS ---
Discharge Diet: No Restrictions Discharge Activity: May Not Drive - while taking narcotic pain medications. May shower in (days): 1 - Turned dressing away from water. No submerging underwater for 4 weeks postoperatively Ice area for (Minutes): 20 - Every 1-2 hours while awake Weight Bearing Status: Weight bearing as tolerated Elevate: Operative Extremity Additional Activity Instructions:: Wear elastic stockings for 2 weeks. DO NOT use alcohol with narcotic pain medication. DO NOT make important decisions while taking narcotic medication. If you have problems with taking your medication (rash, itching, nausea, etc.) call the office at once. Call your doctor if your incision/area has: Increased Pain/ Swelling, Increased Redness, Foul Smelling Discharge Call your doctor if you observe: Fever of 101 or Higher Remove Dressing in (days):: 3 - Okay to remove dressing on February 12, 2019 Additional Instructions: Patient will follow-up per postop instructions Patient will continue with oxygen at home Allergies/Adverse Reactions: Allergies codeine Allergy (Verified 02/06/19 09:50) Itching latex Allergy (Verified 02/06/19 09:50) Rash anti-bacterial soaps Adverse Reaction (Uncoded 01/15/19 12:49) harsh to skin Medications to take at Discharge ALPRAZolam [Xanax] 0.5 mg PO QHS 01/15/19 Albuterol Inhaler [Ventolin Hfa (SP)] 1 - 2 puff INHALATION Q6H PRN PRN 01/15/19 Amlodipine [Norvasc] 5 mg PO DAILY 01/15/19 Citalopram [Celexa] 20 mg PO DAILY 01/15/19 Docusate Sodium [Stool Softener] 100 mg PO QODAY 01/15/19 Ibuprofen 800 mg PO PRN PRN 01/15/19 Losartan Potassium [Cozaar] 50 mg PO DAILY 01/15/19 Lovastatin [Mevacor] 20 mg PO QHS 01/15/19 Meloxicam [Mobic] 7.5 mg PO BID 01/15/19 Omeprazole [Prilosec] 40 mg PO DAILY 01/15/19 traMADol [Ultram (G)] 50 mg PO Q4H PRN PRN 01/15/19 Primary Care Physician: Ada Dumont MD [Primary Care Provider] - Test Results: Test results from this visit will be discussed in further detail at your follow- up appointment, if applicable. Please Follow Up With: [facility] When: 02/12/19 Please Follow Up With: Rafael Richey PA-C When: 02/21/19 @ 9:00 am
--- NOTE | 2019-02-08 10:00 | PCM.PN.HOSP ---
Subjective: Patient seen breathing appears labored she apparently did work with physical therapy Objective: GENERAL: Dyspneic at rest HEENT: Atraumatic; moist oral mucosa EYES; Anicteric, Normal Conjunctiva NECK; supple, normal thyroid, no distended JVD. RESPIRATORY: Diminished to auscultation bilaterally, CARDIOVASCULAR: Regular S1 S2, no audible murmurs GI: soft, non-tender, normoactive bowel sounds, : No Renal angle tenderness; EXTREMITIES: No edema, no clubbing, no cyanosis. NEURO: Awake; no lateralizing signs. SKIN: No Rash PSYCH; Normal affect Vitals/I&O's: Vital Signs Temp Pulse Resp BP Pulse Ox 98.7 F 82 16 131/73 H 97 02/08/19 08:11 02/08/19 08:11 02/08/19 08:11 02/08/19 08:11 02/08/19 08:11 Oxygen Flow Rate (L/min) 3 Oxygen Delivery Method Nasal Cannula Weight: 79.5 kg Body Mass Index (BMI) 32.0 Intake and Output for Last 24 Hours 02/06/19 02/07/19 02/08/19 23:59 23:59 23:59 Intake Total 1399 / 1399 Balance 1399 / 1399 Laboratory Results 02/08/19 06:02: WBC 12.4 H, RBC 3.59 L, Hgb 10.5 L, Hct 33.7 L, MCV 93.9, MCH 29.2, MCHC 31.2 L, RDW 13.4, RDW Differential 44.4 H, Plt Count 266, MPV 10.1 02/08/19 06:02: Sodium 139, Potassium 4.1, Chloride 104, Carbon Dioxide 28.0, Anion Gap 7, BUN 13, Creatinine 0.68, Estim Creat Clear Calc 41.99, Est GFR (MDRD) Af Amer 110, Est GFR (MDRD) Non-Af 91, BUN/Creatinine Ratio 19.1, Glucose 133 H, Calcium 8.6 Current Medications Acetaminophen (Tylenol) 1,000 mg PO Q8 [facility] Last Admin: 02/08/19 05:51 Dose: 1,000 mg Albuterol Sulfate (Ventolin Aerosols) 2.5 mg INHALATION Q2H PRN PRN PRN Reason: SOB &/OR WHEEZING Albuterol/Ipratropium (Duoneb) 3 ml INHALATION Q6HWA.RT [facility] Last Admin: 02/08/19 07:06 Dose: 3 ml Alprazolam (Xanax) 0.5 mg PO QHS [facility] Last Admin: 02/07/19 22:17 Dose: 0.5 mg Amlodipine Besylate (Norvasc) 5 mg PO DAILY [facility] Last Admin: 02/08/19 08:31 Dose: 5 mg [facility], [facility]) [facility] Last Admin: 02/08/19 08:25 Dose: 81 mg Atorvastatin Calcium (Lipitor) 5 mg PO QHS [facility] Last Admin: 02/07/19 22:13 Dose: 5 mg Citalopram Hydrobromide (Celexa) 20 mg PO DAILY [facility] Last Admin: 02/08/19 08:30 Dose: 20 mg Docusate Sodium (Colace) 100 mg PO QODAY [facility] Last Admin: 02/08/19 08:33 Dose: Not Given Famotidine (Pepcid) 20 mg PO DAILY [facility] Last Admin: 02/08/19 08:31 Dose: 20 mg Lactated Ringer's () 1,000 mls @ 75 mls/hr IV .[id number] [facility] Last Admin: 02/08/19 02:57 Dose: Not Given Ketorolac Tromethamine (Toradol) 15 mg IV Q6H PRN PRN PRN Reason: MILD-MOD PAIN (1-5/10) Stop: 02/12/19 12:53 Last Admin: 02/07/19 22:25 Dose: 15 mg Losartan Potassium (Cozaar) 50 mg PO DAILY [facility] Last Admin: 02/08/19 08:30 Dose: 50 mg Meloxicam (Mobic) 7.5 mg PO BID [facility] Last Admin: 02/08/19 08:32 Dose: 7.5 mg Morphine Sulfate () 2 - 4 mg IV Q2H PRN PRN PRN Reason: SEVERE PAIN (6-10/10) Last Admin: 02/07/19 16:22 Dose: 2 mg Morphine Sulfate () 2 - 4 mg IV Q2H PRN PRN PRN Reason: SEVERE PAIN (6-10/10) Last Admin: 02/08/19 02:54 Dose: 4 mg Nutritional Formula (Lactose Free) (Ensure Clear) 120 ml PO TIDCM [facility] Last Admin: 02/07/19 18:15 Dose: Not Given Ondansetron HCl (Zofran) 4 mg IV Q8H PRN PRN PRN Reason: NAUSEA Oxycodone HCl (Oxyir) 5 - 10 mg PO Q4H PRN PRN PRN Reason: MOD-SEVERE PAIN (4-10/10) Last Admin: 02/08/19 08:22 Dose: 10 mg Pantoprazole Sodium (Protonix) 40 mg PO DAILY [facility] Last Admin: 02/08/19 08:31 Dose: 40 mg Promethazine HCl (Phenergan) 12.5 mg IM Q6H PRN PRN; Protocol PRN Reason: NAUSEA/VOMITING Senna/Docusate Sodium (Senokot-S, Jeanine-Colace) 2 tablet PO BID [facility] Last Admin: 02/08/19 08:32 Dose: 2 tablet Sodium Chloride () 5 - 15 ml IV UD PRN PRN Reason: SALINE FLUSH Throat Lozenges (Cepacol Sore Throat Lozenge) 2 lozenge MUCOUS MEM Q2H PRN PRN PRN Reason: sore throat, cough Medical Necessity - Tobacco Use Smoking Status: Former smoker Assessment/Plan Patient is a 68-year-old lady who underwent right direct anterior hip replacement on account of right hip primary osteoarthritis on 02/07/[address] Kingsley the hospitalist service was consulted to assist with management of patient medical comorbidities 1. Status post right direct anterior hip replacement on account of right hip primary osteoarthritis on 02/07/[address] Kingsley patient postoperative orders with regards to pain management, DVT prophylaxis as well as PT OT orders addressed by primary service 2. Hypertension-blood pressure controlled, home medications continued with dose adjustment as needed 3. Dyspnea. Patient has history of lung CA with previous lung lobectomy patient was placed on scheduled duo nebs as well as as needed albuterol addition to her baseline supplemental oxygen encourage the use of incentive spirometry 4. GERD on PPI 5. Hypoxic respiratory failure patient is on baseline home O2 6. History of lung CA status post right lower lung lobectomy 7. Dyslipidemia-patient is on statin therapy, continued at home dose 8. DVT prophylaxis deferred to primary service (aspirin 81 mg p.o. twice daily as ordered by primary service) Active Medications Acetaminophen (Tylenol) 1,000 mg PO Q8 [facility] Last Admin: 02/08/19 05:51 Dose: 1,000 mg Albuterol Sulfate (Ventolin Aerosols) 2.5 mg INHALATION Q2H PRN PRN PRN Reason: SOB &/OR WHEEZING Albuterol/Ipratropium (Duoneb) 3 ml INHALATION Q6HWA.RT [facility] Last Admin: 02/08/19 07:06 Dose: 3 ml Alprazolam (Xanax) 0.5 mg PO QHS [facility] Last Admin: 02/07/19 22:17 Dose: 0.5 mg Amlodipine Besylate (Norvasc) 5 mg PO DAILY [facility] Last Admin: 02/08/19 08:31 Dose: 5 mg Aspirin ([facility]in, Baby) [facility] Last Admin: 02/08/19 08:25 Dose: 81 mg Atorvastatin Calcium (Lipitor) 5 mg PO QHS [facility] Last Admin: 02/07/19 22:13 Dose: 5 mg Citalopram Hydrobromide (Celexa) 20 mg PO DAILY [facility] Last Admin: 02/08/19 08:30 Dose: 20 mg Docusate Sodium (Colace) 100 mg PO QODAY [facility] Last Admin: 02/08/19 08:33 Dose: Not Given Famotidine (Pepcid) 20 mg PO DAILY [facility] Last Admin: 02/08/19 08:31 Dose: 20 mg Lactated Ringer's () 1,000 mls @ 75 mls/hr IV .[id number] [facility] Last Admin: 02/08/19 02:57 Dose: Not Given Ketorolac Tromethamine (Toradol) 15 mg IV Q6H PRN PRN PRN Reason: MILD-MOD PAIN (1-5/10) Stop: 02/12/19 12:53 Last Admin: 02/07/19 22:25 Dose: 15 mg Losartan Potassium (Cozaar) 50 mg PO DAILY [facility] Last Admin: 02/08/19 08:30 Dose: 50 mg Meloxicam (Mobic) 7.5 mg PO BID [facility] Last Admin: 02/08/19 08:32 Dose: 7.5 mg Morphine Sulfate () 2 - 4 mg IV Q2H PRN PRN PRN Reason: SEVERE PAIN (6-10/10) Last Admin: 02/07/19 16:22 Dose: 2 mg Morphine Sulfate () 2 - 4 mg IV Q2H PRN PRN PRN Reason: SEVERE PAIN (6-10/10) Last Admin: 02/08/19 02:54 Dose: 4 mg Nutritional Formula (Lactose Free) (Ensure Clear) 120 ml PO TIDCM [facility] Last Admin: 02/07/19 18:15 Dose: Not Given Ondansetron HCl (Zofran) 4 mg IV Q8H PRN PRN PRN Reason: NAUSEA Oxycodone HCl (Oxyir) 5 - 10 mg PO Q4H PRN PRN PRN Reason: MOD-SEVERE PAIN (4-10/10) Last Admin: 02/08/19 08:22 Dose: 10 mg Pantoprazole Sodium (Protonix) 40 mg PO DAILY [facility] Last Admin: 02/08/19 08:31 Dose: 40 mg Promethazine HCl (Phenergan) 12.5 mg IM Q6H PRN PRN; Protocol PRN Reason: NAUSEA/VOMITING Senna/Docusate Sodium (Senokot-S, Jeanine-Colace) 2 tablet PO BID [facility] Last Admin: 02/08/19 08:32 Dose: 2 tablet Sodium Chloride () 5 - 15 ml IV UD PRN PRN Reason: SALINE FLUSH Throat Lozenges (Cepacol Sore Throat Lozenge) 2 lozenge MUCOUS MEM Q2H PRN PRN PRN Reason: sore throat, cough Code Visit Inpatient E&M: 68371 [facility] Hosp L3
--- NOTE | 2019-02-08 10:05 | PN_ITS ---
Subjective: Patient seen breathing appears labored she apparently did work with physical therapy Objective: GENERAL: Dyspneic at rest HEENT: Atraumatic; moist oral mucosa EYES; Anicteric, Normal Conjunctiva NECK; supple, normal thyroid, no distended JVD. RESPIRATORY: Diminished to auscultation bilaterally, CARDIOVASCULAR: Regular S1 S2, no audible murmurs GI: soft, non-tender, normoactive bowel sounds, : No Renal angle tenderness; EXTREMITIES: No edema, no clubbing, no cyanosis. NEURO: Awake; no lateralizing signs. SKIN: No Rash PSYCH; Normal affect Vitals/I&O's: Vital Signs Temp Pulse Resp BP Pulse Ox 98.7 F 82 16 131/73 H 97 02/08/19 08:11 02/08/19 08:11 02/08/19 08:11 02/08/19 08:11 02/08/19 08:11 Oxygen Flow Rate (L/min) 3 Oxygen Delivery Method Nasal Cannula Weight: 79.5 kg Body Mass Index (BMI) 32.0 Intake and Output for Last 24 Hours 02/06/19 02/07/19 02/08/19 23:59 23:59 23:59 Intake Total 1399 / 1399 Balance 1399 / 1399 Laboratory Results 02/08/19 06:02: WBC 12.4 H, RBC 3.59 L, Hgb 10.5 L, Hct 33.7 L, MCV 93.9, MCH 29.2, MCHC 31.2 L, RDW 13.4, RDW Differential 44.4 H, Plt Count 266, MPV 10.1 02/08/19 06:02: Sodium 139, Potassium 4.1, Chloride 104, Carbon Dioxide 28.0, Anion Gap 7, BUN 13, Creatinine 0.68, Estim Creat Clear Calc 41.99, Est GFR (MDRD) Af Amer 110, Est GFR (MDRD) Non-Af 91, BUN/Creatinine Ratio 19.1, Glucose 133 H, Calcium 8.6 Current Medications Acetaminophen (Tylenol) 1,000 mg PO Q8 [facility] Last Admin: 02/08/19 05:51 Dose: 1,000 mg Albuterol Sulfate (Ventolin Aerosols) 2.5 mg INHALATION Q2H PRN PRN PRN Reason: SOB &/OR WHEEZING Albuterol/Ipratropium (Duoneb) 3 ml INHALATION Q6HWA.RT [facility] Last Admin: 02/08/19 07:06 Dose: 3 ml Alprazolam (Xanax) 0.5 mg PO QHS [facility] Last Admin: 02/07/19 22:17 Dose: 0.5 mg Amlodipine Besylate (Norvasc) 5 mg PO DAILY [facility] Last Admin: 02/08/19 08:31 Dose: 5 mg Aspir[facility] ([facility], Baby) [facility] Last Admin: 02/08/19 08:25 Dose: 81 mg Atorvastatin Calcium (Lipitor) 5 mg PO QHS [facility] Last Admin: 02/07/19 22:13 Dose: 5 mg Citalopram Hydrobromide (Celexa) 20 mg PO DAILY [facility] Last Admin: 02/08/19 08:30 Dose: 20 mg Docusate Sodium (Colace) 100 mg PO QODAY [facility] Last Admin: 02/08/19 08:33 Dose: Not Given Famotidine (Pepcid) 20 mg PO DAILY [facility] Last Admin: 02/08/19 08:31 Dose: 20 mg Lactated Ringer's () 1,000 mls @ 75 mls/hr IV .[id number] [facility] Last Admin: 02/08/19 02:57 Dose: Not Given Ketorolac Tromethamine (Toradol) 15 mg IV Q6H PRN PRN PRN Reason: MILD-MOD PAIN (1-5/10) Stop: 02/12/19 12:53 Last Admin: 02/07/19 22:25 Dose: 15 mg Losartan Potassium (Cozaar) 50 mg PO DAILY [facility] Last Admin: 02/08/19 08:30 Dose: 50 mg Meloxicam (Mobic) 7.5 mg PO BID [facility] Last Admin: 02/08/19 08:32 Dose: 7.5 mg Morphine Sulfate () 2 - 4 mg IV Q2H PRN PRN PRN Reason: SEVERE PAIN (6-10/10) Last Admin: 02/07/19 16:22 Dose: 2 mg Morphine Sulfate () 2 - 4 mg IV Q2H PRN PRN PRN Reason: SEVERE PAIN (6-10/10) Last Admin: 02/08/19 02:54 Dose: 4 mg Nutritional Formula (Lactose Free) (Ensure Clear) 120 ml PO TIDCM [facility] Last Admin: 02/07/19 18:15 Dose: Not Given Ondansetron HCl (Zofran) 4 mg IV Q8H PRN PRN PRN Reason: NAUSEA Oxycodone HCl (Oxyir) 5 - 10 mg PO Q4H PRN PRN PRN Reason: MOD-SEVERE PAIN (4-10/10) Last Admin: 02/08/19 08:22 Dose: 10 mg Pantoprazole Sodium (Protonix) 40 mg PO DAILY [facility] Last Admin: 02/08/19 08:31 Dose: 40 mg Promethazine HCl (Phenergan) 12.5 mg IM Q6H PRN PRN; Protocol PRN Reason: NAUSEA/VOMITING Senna/Docusate Sodium (Senokot-S, Jeanine-Colace) 2 tablet PO BID [facility] Last Admin: 02/08/19 08:32 Dose: 2 tablet Sodium Chloride () 5 - 15 ml IV UD PRN PRN Reason: SALINE FLUSH Throat Lozenges (Cepacol Sore Throat Lozenge) 2 lozenge MUCOUS MEM Q2H PRN PRN PRN Reason: sore throat, cough Medical Necessity - Tobacco Use Smoking Status: Former smoker Assessment/Plan Patient is a 68-year-old lady who underwent right direct anterior hip re placement on account of right hip primary osteoarthritis on 02/07/[address] Kingsley the hospitalist service was consulted to assist with management of patient medical comorbidities 1. Status post right direct anterior hip replacement on account of right hip primary osteoarthritis on 02/07/[address] Kingsley patient postoperative orders with regards to pain management, DVT prophylaxis as well as PT OT orders addressed by primary service 2. Hypertension-blood pressure controlled, home medications continued with dose adjustment as needed 3. Dyspnea. Patient has history of lung CA with previous lung lobectomy patient was placed on scheduled duo nebs as well as as needed albuterol addition to her baseline supplemental oxygen encourage the use of incentive spirometry 4. GERD on PPI 5. Hypoxic respiratory failure patient is on baseline home O2 6. History of lung CA status post right lower lung lobectomy 7. Dyslipidemia-patient is on statin therapy, continued at home dose 8. DVT prophylaxis deferred to primary service (aspirin 81 mg p.o. twice daily as ordered by primary service) Active Medications Acetaminophen (Tylenol) 1,000 mg PO Q8 [facility] Last Admin: 02/08/19 05:51 Dose: 1,000 mg Albuterol Sulfate (Ventolin Aerosols) 2.5 mg INHALATION Q2H PRN PRN PRN Reason: SOB &/OR WHEEZING Albuterol/Ipratropium (Duoneb) 3 ml INHALATION Q6HWA.RT [facility] Last Admin: 02/08/19 07:06 Dose: 3 ml Alprazolam (Xanax) 0.5 mg PO QHS [facility] Last Admin: 02/07/19 22:17 Dose: 0.5 mg Amlodipine Besylate (Norvasc) 5 mg PO DAILY [facility] Last Admin: 02/08/19 08:31 Dose: 5 mg Aspirin (Aspirin, Baby) 81 mg PO BIDCM [facility] Last Admin: 02/08/19 08:25 Dose: 81 mg Atorvastatin Calcium (Lipitor) 5 mg PO QHS [facility] Last Admin: 02/07/19 22:13 Dose: 5 mg Citalopram Hydrobromide (Celexa) 20 mg PO DAILY [facility] Last Admin: 02/08/19 08:30 Dose: 20 mg Docusate Sodium (Colace) 100 mg PO QODAY [facility] Last Admin: 02/08/19 08:33 Dose: Not Given Famotidine (Pepcid) 20 mg PO DAILY [facility] Last Admin: 02/08/19 08:31 Dose: 20 mg Lactated Ringer's () 1,000 mls @ 75 mls/hr IV .[id number] [facility] Last Admin: 02/08/19 02:57 Dose: Not Given Ketorolac Tromethamine (Toradol) 15 mg IV Q6H PRN PRN PRN Reason: MILD-MOD PAIN (1-5/10) Stop: 02/12/19 12:53 Last Admin: 02/07/19 22:25 Dose: 15 mg Losartan Potassium (Cozaar) 50 mg PO DAILY [facility] Last Admin: 02/08/19 08:30 Dose: 50 mg Meloxicam (Mobic) 7.5 mg PO BID [facility] Last Admin: 02/08/19 08:32 Dose: 7.5 mg Morphine Sulfate () 2 - 4 mg IV Q2H PRN PRN PRN Reason: SEVERE PAIN (6-10/10) Last Admin: 02/07/19 16:22 Dose: 2 mg Morphine Sulfate () 2 - 4 mg IV Q2H PRN PRN PRN Reason: SEVERE PAIN (6-10/10) Last Admin: 02/08/19 02:54 Dose: 4 mg Nutritional Formula (Lactose Free) (Ensure Clear) 120 ml PO TIDCM [facility] Last Admin: 02/07/19 18:15 Dose: Not Given Ondansetron HCl (Zofran) 4 mg IV Q8H PRN PRN PRN Reason: NAUSEA Oxycodone HCl (Oxyir) 5 - 10 mg PO Q4H PRN PRN PRN Reason: MOD-SEVERE PAIN (4-10/10) Last Admin: 02/08/19 08:22 Dose: 10 mg Pantoprazole Sodium (Protonix) 40 mg PO DAILY [facility] Last Admin: 02/08/19 08:31 Dose: 40 mg Promethazine HCl (Phenergan) 12.5 mg IM Q6H PRN PRN; Protocol PRN Reason: NAUSEA/VOMITING Senna/Docusate Sodium (Senokot-S, Jeanine-Colace) 2 tablet PO BID [facility] Last Admin: 02/08/19 08:32 Dose: 2 tablet Sodium Chloride () 5 - 15 ml IV UD PRN PRN Reason: SALINE FLUSH Throat Lozenges (Cepacol Sore Throat Lozenge) 2 lozenge MUCOUS MEM Q2H PRN PRN PRN Reason: sore throat, cough Code Visit Inpatient E&M: [id number] [facility] Hosp L3
[2019-02-08] MEDS: Ketorolac 15 MG/ML Vial IV ×2 (10:26→22:14)
--- NOTE | 2019-02-08 11:30 | CASEMGMT ---
RAJWINDER MORTON Face to Face with patient for initial transition planning/care coordination assessment. RN PRAVEEN introduced self and role at [facility]. Patient lying in bed, alert and oriented, son at bedside. Patient willing to participate in assessment and is able to answer all questions appropriately. Care providers, pharmacy, and demographics verified. Patient wishes to discharge home and would like therapy setup for at home with [facility], whom she is already established with. Referral sent to [facility] and they are able to accept the patient. Patient states she has no further needs or concerns at this time. CM to follow for discharge planning needs that may arise. PCP: Ada Dumont Specialists: None Preferred Pharmacy: [facility] Insurance: [employer] PPO Prescription Benefit: Yes Living Will/HPOA: Yes Zoran Marie HPOA LNOK: , son Living Arrangements: Patient lives with in a 2 story home with bed and bath on first floor. Patient states she is mostly independent at home, help with lower body bathing and dressing. Transportation: DME/HHC: Patient has raised toilet, walker, and rollator, home oxygen, portable and stationary, at 2 lpm through [employer], and nebulizer. Disposition Plan: Patient to discharge home with home therapy, family support, and follow-up plans in place Sandra PATEL, RN, CM
[2019-02-08] MEDS: ALPRAZolam 0.5 MG Tablet PO (22:13)
[2019-02-08] MEDS: Atorvastatin Calcium 10 MG Tablet 5 MG PO (22:15)
[2019-02-08] MEDS: 0.9% NaCl Peripheral Flush Adult/Peds IV (22:15)
[2019-02-09 04:15] VITALS: BP 124/74; PULSE 77; RESP 18; TEMP 37.1; O2SAT 94
[2019-02-09] MEDS: Acetaminophen 500 MG Tablet 1000 MG PO (06:04)
[2019-02-09 06:21] LABS: Hematocrit 30.5 % (37-47); Hemoglobin 9.5 g/dl (12.0-15.0); Mean Corp Hgb Conc 31.1 g/gl (32-36); Mean Corpuscular Hgb 29.5 pg (27.0-32.0); Mean Corpuscular Volume 94.7 fL (81-99); Platelet Count 227 K/mm3 (150-450); RBC Distribution Width CV 13.8 % (11.6-14.6); RBC Distribution Width SD 45.6 fl (35.1-43.9); Red Blood Count 3.22 M/mm3 (4.2-5.4); White Blood Count 7.1 K/mm3 (4.4-11.0)
[2019-02-09 06:25] LABS: Scan Indicated on CBC? Y/N NO
--- NOTE | 2019-02-09 07:03 | PCM.PN.ORT ---
Subjective: The patient was sitting in bedside chair upon examination. Patient denies any chest pain, shortness of breath, dizziness, lightheadedness, nausea or vomiting, or calf pain. Pain is controlled on medications. No adverse overnight events. She does report pain in the hip but the medications are helpful. She also does complain of restless leg syndrome. Patient has oxygen at home that she requires to use daily and will continue as prescribed. Objective: Vital signs stable and afebrile. Patient is able to plantarflex and dorsiflex actively. Sensation is intact to light touch to saphenous, sural, superficial and deep peroneal, and tibial distribution. Dressing is clean dry and intact. Negative Homans bilaterally, negative signs and symptoms of DVT. - Physical Exam General: Alert, Oriented x3, Cooperative, No apparent distress Vital Signs Temp Pulse Resp BP Pulse Ox 98.8 F 77 18 124/74 H 94 02/09/19 04:15 02/09/19 04:15 02/09/19 04:15 02/09/19 04:15 02/09/19 04:15 Oxygen Flow Rate (L/min) 3 Oxygen Delivery Method Nasal Cannula Weight: 79.5 kg Body Mass Index (BMI) 32.0 Intake and Output for Last 24 Hours 02/07/19 02/08/19 02/09/19 23:59 23:59 23:59 Intake Total 1400 / 1400 2960 / 2960 600 / 600 Output Total 650 / 650 Balance 1400 / 1400 2310 / 2310 600 / 600 Laboratory Tests Past 24 Hrs 02/08/19 02/09/19 06:02 05:36 WBC 7.1 RBC 3.22 L Hgb 9.5 L Hct 30.5 L MCV 94.7 MCH 29.5 MCHC 31.1 L RDW 13.8 RDW Differential 45.6 H Plt Count 227 MPV 10.0 Sodium 139 Potassium 4.1 Chloride 104 Carbon Dioxide 28.0 Anion Gap 7 BUN 13 Creatinine 0.68 Estim Creat Clear Calc 41.99 Est GFR (MDRD) Af Amer 110 Est GFR (MDRD) Non-Af 91 BUN/Creatinine Ratio 19.1 Glucose 133 H Calcium 8.6 Medical Necessity - Tobacco Use Smoking Status: Former smoker Assessment/Plan 1. S/P right direct anterior total hip arthroplasty POD #2 2. Continue Pain Medications: Tylenol and OxyIR 3. DVT Prophylaxis: Aspirin 81 mg twice daily with food for 4 weeks postoperatively 4. PT/OT: Weightbearing as tolerated 5. H & H: 9.5/30.5, asymptomatic 6. Encouraged Incentive Spirometry 7. Continue postoperative medical management per medicine 8. Reactive leukocytosis: Resolved, currently 7.1, afebrile. Patient did receive Decadron intraoperatively 9. Disposition: Orthopedically stable, plan will be for discharge home today after physical therapy. Prescriptions will be E scribed to [facility]. Patient will follow-up per postop instructions. Patient will be set up with home health therapy. Patient will continue with her oxygen at home.
--- NOTE | 2019-02-09 07:09 | DCINST_ITS ---
Discharge Diet: No Restrictions Discharge Activity: May Not Drive - while taking narcotic pain medications. May shower in (days): 1 - Turned dressing away from water. No submerging underwater for 4 weeks postoperatively Ice area for (Minutes): 20 - Every 1-2 hours while awake Weight Bearing Status: Weight bearing as tolerated Elevate: Operative Extremity Additional Activity Instructions:: Wear elastic stockings for 2 weeks. DO NOT use alcohol with narcotic pain medication. DO NOT make important decisions while taking narcotic medication. If you have problems with taking your medication (rash, itching, nausea, etc.) call the office at once. Call your doctor if your incision/area has: Increased Pain/ Swelling, Increased Redness, Foul Smelling Discharge Call your doctor if you observe: Fever of 101 or Higher Remove Dressing in (days):: 3 - Okay to remove dressing on February 12, 2019 Additional Instructions: Patient will follow-up per postop instructions Patient will continue with oxygen at home Do not take tramadol while taking the oxycodone Allergies/Adverse Reactions: Allergies codeine Allergy (Verified 02/06/19 09:50) Itching latex Allergy (Verified 02/06/19 09:50) Rash anti-bacterial soaps Adverse Reaction (Uncoded 01/15/19 12:49) harsh to skin Medications to take at Discharge ALPRAZolam [Xanax] 0.5 mg PO QHS 01/15/19 Albuterol Inhaler [Ventolin Hfa] 1 - 2 puff INHALATION Q6H PRN PRN 01/15/19 Amlodipine [Norvasc] 5 mg PO DAILY 01/15/19 Citalopram [Celexa] 20 mg PO DAILY 01/15/19 Docusate Sodium [Stool Softener] 100 mg PO QODAY 01/15/19 Losartan Potassium [Cozaar] 50 mg PO DAILY 01/15/19 Lovastatin [Mevacor] 20 mg PO QHS 01/15/19 Meloxicam [Mobic] 7.5 mg PO BID 01/15/19 Omeprazole [Prilosec] 40 mg PO DAILY 01/15/19 Acetaminophen [Tylenol] 1,000 mg PO Q8 #90 tablet 02/09/19 Aspirin [Aspirin, Baby] 81 mg PO BIDCM #60 tab.chew 02/09/19 Oxycodone [Oxyir] 5 - 10 mg PO Q4H PRN PRN 5 Days #60 tablet 02/09/19 The following prescriptions were given: Oxycodone [Oxyir] 5 - 10 mg PO Q4H PRN PRN 5 Days #60 tablet PRN Reason: Mod-Severe Pain (-09/06) Acetaminophen [Tylenol] 1,000 mg PO Q8 #90 tablet Aspirin [Aspirin, Baby] 81 mg PO BIDCM #60 tab.chew Primary Care Physician: Ada Dumont MD [Primary Care Provider] - Test Results: Test results from this visit will be discussed in further detail at your follow- up appointment, if applicable. Please Follow Up With: [facility] When: 02/12/19 Please Follow Up With: Rafael Richey PA-C When: 02/21/19 @ 9:00 am
[2019-02-09] MEDS: Aspirin 81 MG TAB.CHEW PO (07:56)
[2019-02-09 08:00] VITALS: PULSE 76
[2019-02-09] MEDS: amLODIPine 5 MG Tablet PO (10:02)
[2019-02-09] MEDS: Citalopram 20 MG Tablet PO (10:02)
[2019-02-09] MEDS: Losartan Potassium 50 MG Tablet PO (10:02)
[2019-02-09] MEDS: Docusate Sodium 100 MG Capsule PO (10:02)
[2019-02-09] MEDS: Meloxicam 7.5 MG Tablet PO (10:02)
[2019-02-09] MEDS: Senna/Docusate Sodium 1 Tablet 2 TABLET PO (10:02)
[2019-02-09] MEDS: Famotidine 20 MG Tablet PO (10:02)
[2019-02-09] MEDS: Pantoprazole Sodium 40 MG Tablet PO (10:02)
[2019-02-09] MEDS: oxyCODONE 5 MG Tablet PO (10:05)
[2019-02-09 12:18] VITALS: BP 129/80; PULSE 84; RESP 20; TEMP 36.7; O2SAT 93
== END 2019-02-09 12:31 | disposition home or self-care (01) | DRG 470 ==
LOC: ACINP 09:42 → MS3 14:11
PROVIDERS: Admitting Provider Specialist; Family Provider Internal Medicine Infectious Disease; PCP Internal Medicine Infectious Disease; Referring Provider Specialist; Visit Provider Internal Medicine
PROC: 0SR904A Replacement of Right Hip Joint with Ceramic on Polyethylene Synthetic Substitute, Uncemented, Open Approach (ICD-10-PCS; CPT 27284; principal; 2019-02-07 11:35)
DX: M16.11 Unilateral primary osteoarthritis, right hip (principal); J96.11 Chronic respiratory failure with hypoxia; E78.5 Hyperlipidemia, unspecified; I10 Essential (primary) hypertension; K21.9 Gastro-esophageal reflux disease without esophagitis; Z99.81 Dependence on supplemental oxygen; Z85.118 Personal history of other malignant neoplasm of bronchus and lung; Z90.2 Acquired absence of lung [part of]; Z87.891 Personal history of nicotine dependence
CPT/HCPCS: 36415; 73501; 73502; 76000; 80048; 85027; 94640; 97110; 97116; 97162; 97166; 97530; 97535; 97802; 99251; C1776; J7120; A4216; G0463